=== PATIENT | male | born 1945 | race Caucasian/White ===

== ENCOUNTER → 2018-01-14 14:27 | Outpatient (CLI) | payer MEDICARE, MEDICAID, SELFPAY | PROVIDERS: Family Provider Internal Medicine; PCP Internal Medicine; Visit Provider Nurse Practitioner Adult Health | DX: R97.20 Elevated prostate specific antigen [PSA] (principal) | CPT/HCPCS: 36415; 84153 ==

== ENCOUNTER → 2018-02-09 14:40 | Outpatient (CLI) | payer MEDICARE, MEDICAID, SELFPAY ==
--- NOTE | 2018-02-09 15:11 | EKG12_ITS ---
Test Reason : PREOP Blood Pressure : / mmHG Vent. Rate : 071 BPM Atrial Rate : 071 BPM P-R Int : 122 ms QRS Dur : 098 ms QT Int : 392 ms P-R-T Axes : 044 070 074 degrees QTc Int : 425 ms Normal sinus rhythm Normal ECG No previous ECGs available Confirmed by MISHA CUELLAR ([id number]), department editor SHREYAS ESPINOSA ([id number]) on 02/10/2018 9:59:09 AM Referred By: Joel Wei Confirmed By:MISHA CUELLAR
[2018-02-09 16:11] LABS: Hemoglobin 13.1 g/dl (13.0-16.5); Mean Corp Hgb Conc 33.6 g/gl (32-36); Mean Corpuscular Volume 92.4 fL (80-94); Mean Platelet Vol. 12.1 fl (6.2-12.0); Platelet Count 166 K/mm3 (150-450); RBC Distribution Width CV 12.8 % (11.6-14.6); RBC Distribution Width SD 42.3 fl (35.1-43.9); Red Blood Count 4.22 M/mm3 (4.6-6.2); White Blood Count 5.4 K/mm3 (4.4-11.0)
[2018-02-09 16:15] LABS: Scan Indicated on CBC? Y/N NO
[2018-02-09 16:40] LABS: Anion Gap 6 (5-15); BUN 13 mg/dL (7-18); BUN/Creat Ratio 13.5 RATIO (10-20); Calcium,Total 8.9 mg/dL (8.5-10.1); Chloride 104 mmol/L (98-107); Creatinine, Serum 0.96 mg/dL (0.70-1.30); EST Glomerular Filtration Rate 81 mL/min (>60); Est Glom Filt Rate - Afr Amer 98 mL/min (>60); Glucose 135 mg/dL (74-106); Potassium 4.3 mmol/L (3.5-5.1); Sodium Level 141 mmol/L (136-145)
== END ==
LOC: LAB 14:44
PROVIDERS: Family Provider Internal Medicine; PCP Internal Medicine; Referring Provider Urology; Visit Provider Urology
DX: E11.9 Type 2 diabetes mellitus without complications (principal)
CPT/HCPCS: 36415; 80048; 85027; 93005

== ENCOUNTER → 2018-02-12 17:12 | Outpatient (CLI) | payer MEDICARE, MEDICAID, SELFPAY ==
--- NOTE | 2018-02-12 10:59 | PROSBIL_PTH ---
PATIENT: AMENA HUBBARD LOC: [facility] U#:[id number] AGE/SX: 79/M ROOM: RE02/12/[address]: Dr. Barry Turner MD : 1945 BED: DIS: SPEC #: [id number] RECD: 02/12/18 15:42 STATUS: JAUN PAYAM #: [id number] ERAN: 02/12/18 10:[address]: Barry Turner DEPT: SURGICAL PATHOLOGY RECD BY: Linda Flowers ENTERED: 02/15/18 11:49 SP TYPE: PROST BX PARUL DR: Dr. Nikolas Riley MD [facility] Tissues: A - PROSTATE RIGHT B - PROSTATE RIGHT C - PROSTATE RIGHT D - PROSTATE LEFT E - PROSTATE LEFT F - PROSTATE LEFT Procedures: PROSTATE BX HEADER OPERATION: PRE-OP DIAGNOSIS: TISSUE SUBMITTED: A - Right apex, B - Right mid, C - Right base, D - Left apex, E - Left mid, F - Left base MICROSCOPIC DIAGNOSIS A. Right prostate, apex, core biopsy: Prostatic adenocarcinoma: Alfred grade: 5+4=9 Number of cores involved: 1 out of 1 Proportion of tissue involved: >95% Perineural invasion: Present, frequent. Greatest tumor length: 0.8 cm B. Right prostate, mid, core biopsy: Prostatic adenocarcinoma: Alfred grade: 5+5=10 Number of cores involved: 2 out of 2 Proportion of tissue involved: 80% Perineural invasion: Present. Greatest tumor length: 1.2 cm Focal high-grade prostatic intraepithelial neoplasia (HGPIN). C. Right prostate, base, core biopsy: Prostatic adenocarcinoma: Alfred grade: 3+5=8 Number of cores involved: 3 out of 3 Proportion of tissue involved: ~30% Perineural invasion: Present. Greatest tumor length: 0.9 cm, discontinuous. D. Left prostate, apex, core biopsy: Prostatic adenocarcinoma: Alfred grade: 5+4=9 Number of cores involved: 2 out of 2 Proportion of tissue involved: 75% Perineural invasion: Present. Greatest tumor length: 1.4 cm Focal high-grade prostatic intraepithelial neoplasia (HGPIN). E. Left prostate, mid, core biopsy: Prostatic adenocarcinoma: Keller grade: 4+4=9 Number of cores involved: 2 out of 2 Proportion of tissue involved: >95% Perineural invasion: Not identified. Greatest tumor length: 1.4 cm Focal high-grade prostatic intraepithelial neoplasia (HGPIN). F. Left prostate, base, core biopsy: Prostatic adenocarcinoma: Keller grade: 5+3=8 Number of cores involved: 2 out of 2 Proportion of tissue involved: ~75% Perineural invasion: Present. Greatest tumor length: 1.5 cm, discontinuous. Focal high-grade prostatic intraepithelial neoplasia (HGPIN). SJ:tessie 02/16/18 COMMENT Case has been reviewed in consultation with Dr. Leroy who concurs with the above diagnosis. IDC:AM MICROSCOPIC DESCRIPTION Slides are reviewed. GROSS DESCRIPTION A - Received is one container designated prostate, right apex. The specimen consists of one elongated fragment of light ventura-white soft tissue measuring 0.9 cm in length and 0.1 cm in diameter. The specimen is totally submitted in one cassette. B - Received is one container designated prostate, right mid. The specimen consists of two elongated fragments of light ventura-white soft tissue measuring 1 and 1.5 cm in length and 0.1 cm in diameter. The specimen is totally submitted in one cassette. C - Received is one container designated prostate, right base. The specimen consists of three elongated fragments of light ventura-white soft tissue measuring 0.5 to 1 cm in length and 0.1 cm in diameter. The specimen is totally submitted in one cassette. D - Received is one container designated prostate, left apex. The specimen consists of two elongated fragments of light ventura-white soft tissue each measuring 1.6 cm in length and 0.1 cm in diameter. The specimen is totally submitted in one cassette. E - Received is one container designated prostate, left mid. The specimen consists of two elongated fragments of light ventura-white soft tissue each measuring 1.5 cm in length and 0.1 cm in diameter. The specimen is totally submitted in one cassette. F - Received is one container designated prostate, left base. The specimen consists of two elongated fragments of light ventura-white soft tissue each measuring 1.5 cm in length and 0.1 cm in diameter. The specimen is totally submitted in one cassette. / SJ:tessie 02/15/18 TC:0 CPT: G0146
== END ==
LOC: LABSPEC 17:14
PROVIDERS: Family Provider Internal Medicine; PCP Internal Medicine; Referring Provider Urology; Visit Provider Urology
DX: C61 Malignant neoplasm of prostate (principal)
CPT/HCPCS: 88305; G0416

== ENCOUNTER → 2018-02-19 08:41 | Outpatient (CLI) | payer MEDICARE, MEDICAID, SELFPAY ==
--- NOTE | 2018-02-19 08:48 | NM_ITS ---
CLINICAL: 72-year-old male with reported history of carcinoma of the prostate. WHOLE BODY 99m Tc MDP RADIONUCLIDE BONE SCINTIGRAPHY COMPARISON: None available FINDINGS: Following the intravenous administration of 25.8 mCi of 99m Tc MDP, whole body bone images reveal: 1. Increased radiopharmaceutical concentration is defined in the lateral cortical compartment of the distal left femoral diaphysis and distal right clavicle. 2. Enhanced tracer concentration is defined in the sternoclavicular compartment of the right shoulder, fifth-ninth thoracic vertebra heterogeneously, the left knee articulation, right forefoot. 3. The remaining skeletal structures are scintigraphically unremarkable with normal-appearing renal images and urinary bladder activity identified. NM/Bone Scan Whole Body IMPRESSION: 1. The increase in radiopharmaceutical concentration defined in the distal left femoral diaphysis and distal right clavicle may be further investigated with plain film radiography in the setting of known prostate carcinoma. 2. 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 Electronically Signed: Maxwell Price DO at 8:14 EDT Tel , Service support ,
== END ==
PROVIDERS: Family Provider Internal Medicine; PCP Internal Medicine; Referring Provider Urology; Visit Provider Urology
DX: C61 Malignant neoplasm of prostate (principal)
CPT/HCPCS: 78306

== ENCOUNTER → 2018-02-25 14:14 | Outpatient (CLI) | payer MEDICARE, MEDICAID, SELFPAY ==
--- NOTE | 2018-02-25 14:17 | CT_ITS ---
STUDY: CT ABDOMEN AND PELVIS WITH CONTRAST REASON FOR EXAM: Male, 72 years old. Prostate cancer RADIATION DOSAGE (If Supplied By Facility): CTDIvol = ( 12.97 ) mGy, DLP = ( 720.44 ) mGycm TECHNIQUE: Transaxial images were obtained from the dome of the diaphragm to the symphysis pubis without oral contrast. 100 ml of Isovue 300 contrast was administered. Sagittal and coronal images were reconstructed. Individualized dose optimization techniques were used for this CT. COMPARISON: None. FINDINGS: The visualized lung bases are clear. The visualized portions of the heart and pericardium are within normal limits. There are no calcified gallstones present. The liver is within normal limits. There are no suspicious hepatic lesions. The spleen is normal in size. There are calcified granulomata noted in the spleen. The pancreas is within normal limits. The adrenal glands are within normal limits. There are no renal or ureteral stones. There is no hydronephrosis. There are no focal renal lesions. Normal visualized stomach. There is no bowel obstruction or inflammation. The appendix is visualized and appears normal. There is a fat-containing left inguinal hernia. There is no bowel containing hernia. The aorta is normal in caliber. There is no abdominal or pelvic free air, free fluid, fluid collection or lymphadenopathy. The prostate is enlarged, measuring 5.3 x 5.0 cm. There are no destructive osseous lesions. CT/Abdomen/Pelvis WITH Contrast IMPRESSION: Enlarged prostate. No evidence of metastatic disease in the abdomen or pelvis. No acute abdominal or pelvic pathology. Electronically Signed: Harpreet Mccoy, at 20:55 EDT Tel , Service support ,
== END ==
PROVIDERS: Family Provider Internal Medicine; PCP Internal Medicine; Referring Provider Urology; Visit Provider Urology
DX: C61 Malignant neoplasm of prostate (principal)
CPT/HCPCS: 74177; Q9967

== ENCOUNTER → 2018-03-12 15:23 | Outpatient (CLI) | payer MEDICARE, MEDICAID, SELFPAY ==
--- NOTE | 2018-03-12 16:00 | MRI_ITS ---
STUDY: MR PELVIS WITH T WITHOUT CONTRAST REASON FOR EXAM: Male, 72 years old. Newly diagnosed prostate cancer. TECHNIQUE: Standardized fat and water weighted pulse sequences were obtained in all 3 orthogonal planes, pre-and post contrast administration. 7 ml of Gadavist contrast material was administered intravenously for the contrast portion of the examination. COMPARISON: CT of the abdomen and pelvis, February 25, 2018. FINDINGS: The prostate measures 4.09 x 3.57 x 4.49 cm and a volume of 32.5 mL. The central gland is heterogenous in signal on both T1-weighted and T2-weighted imaging. There are small central calcifications. There is heterogenous enhancement on the post gadolinium imaging with focal areas of nonenhancement anteriorly. The peripheral zone is of normal thickness. It is uniformly low signal on T2 weighted imaging except for focal areas in the right lateral lobe and bilaterally at the most caudal portion of the gland. There is no focal area of abnormality of the peripheral zone on diffusion-weighted imaging and ADC mapping There is overall uniform enhancement contrast enhancement throughout the peripheral zone postgadolinium imaging. The seminal vesicles are prominent but are otherwise unremarkable. The bladder demonstrates a markedly trabeculated wall. There is slight indentation of the prostate into the floor of the bladder. There is no focal mass or filling defect. Normal visualized small intestine. Normal visualized colon. There is no pelvic fluid. There is no pelvic mass lesion or lymphadenopathy. Normal visualized pelvic arteries. Normal osseous structures. Normal abdominal wall. MRI/Pelvis W/WO Contrast IMPRESSION: 1. Enlarged prostate.. 2. There is heterogeneity of the central gland and the possibility of internal malignancy cannot be completely ruled out. 3. Overall decreased signal within the majority of the peripheral zone particularly on the left. There is no corresponding defect on the ADC mapping or diffusion weighting images and no marked abnormality and contrast enhancement. These findings were critical for malignancy. Electronically Signed: Mono Meyer DO at 16:37 EST Tel [phone], Service support ,
== END ==
PROVIDERS: Family Provider Internal Medicine; PCP Internal Medicine; Referring Provider Radiology Radiation Oncology; Visit Provider Radiology Radiation Oncology
DX: C61 Malignant neoplasm of prostate (principal)
CPT/HCPCS: 72197; A9585

== ENCOUNTER 2018-04-07 08:00 | Day surgery (SDC) | payer MEDICARE, MEDICAID, SELFPAY ==
[2018-04-07 08:27] VITALS: BP 142/57; PULSE 71; RESP 16; TEMP 36.9; O2SAT 96; BMI 22.3
[2018-04-07] MEDS: Cefazolin 2 GM in 0.9% Normal Saline 100 ML IV (09:59)
--- NOTE | 2018-04-07 10:02 | DCINST_ITS ---
Discharge Diet: Light diet - advance as tolerated Discharge Activity: Return to Normal Activity Allergies/Adverse Reactions: Allergies No Known Allergies Allergy (Verified 03/31/18 13:39) Medications to take at Discharge Amlodipine [Norvasc] 5 mg PO DAILY 03/15/16 Aspirin E.C. [Ecotrin] 162.5 mg PO DAILY@0800 03/15/16 Atorvastatin Calcium [Lipitor] 10 mg PO QHS 03/15/16 Famotidine [Pepcid AC] 20 mg PO DAILY 03/15/16 Fluticasone 0.05% [Flonase Nasal [place]] 1 spray NASAL PRN PRN 03/15/16 Lisinopril [Zestril] 20 mg PO DAILY 03/15/16 Tamsulosin HCl [Flomax] 0.8 mg PO DAILY 03/15/16 Naproxen Sodium [Aleve] 220 mg PO Q12H PRN PRN 03/31/18 Sertraline HCl [Zoloft] 50 mg PO DAILY 03/31/18 Primary Care Physician: Nikolas Riley [Primary Care Provider] - Test Results: Test results from this visit will be discussed in further detail at your follow- up appointment, if applicable. Please Follow Up With: Barry Turner MD When: keep appt for next injection in the office
--- NOTE | 2018-04-07 10:32 | PCM.OPRPT ---
Report of Operation Date of Procedure: 04/07/18 Pre-Operative Diagnosis: Prostate cancer Post-Operative Diagnosis: Same Surgery/Procedure Performed:: Transperineal ultrasound guided placement of fiducial markers for radiation therapy, and transperineal ultrasound-guided placement of a spacer O AR gel. Description of Surgical Findings:: 72-year-old male taken back to the operating room he has a history of prostate cancer we were going to undergo placement of fiducial markers for radiation treatment and also a gel spacer to protect the rectum from radiation. Patient was taken back to the operating room after smooth induction of anesthesia he was placed supine on the table and then in dorsal lithotomy position I introduced a ultrasound probe into the rectum performed ultrasonography of the prostate with biplanar and sagittal view identified the prostate the landmarks of the prostate base mid and apex of the prostate seminal vesicles the bladder I then advanced the first marker needle in the right side of the prostate places in the right mid part of the prostate and then after dropping off the needle into the right spot I dropped the stripe marker on the right side then placed another marker in the left base and another good marker in the left apex once is accomplished then a found the midline of the prostate we created a space in the denoveillas fascia between the rectum and the prostate was identified and then I advanced the needle into that space with the bevel up once and that he was in good position we did a test injection with saline and there was a good puff of saline solution that had accumulated in the do not be space once this was done then we and I prepared the gel matrix this was injected very slowly between the rectum and the prostate once the matrix was injected then removed the needle ultrasound of the prostate could then remove the ultrasound probe palpated could feel that the gel palpable on exam and then removed the probe and there was no bleeding from the rectum and patient anesthetic was reversed is taken back to PACU good condition plan to see him back in the next injection of hormone therapy. Type of Anesthesia:: General - Admit VTE Documentation VTE Present on Admission: No VTE Mechan Device Prophylaxis: SCD's
--- NOTE | 2018-04-07 10:36 | OP.PCM_ITS ---
Report of Operation Date of Procedure: 04/07/18 Pre-Operative Diagnosis: Prostate cancer Post-Operative Diagnosis: Same Surgery/Procedure Performed:: Transperineal ultrasound guided placement of fiducial markers for radiation therapy, and transperineal ultrasound-guided p lacement of a spacer O AR gel. Description of Surgical Findings:: 72-year-old male taken back to the operating room he has a history of prostate cancer we were going to undergo placement of fiducial markers for radiation treatment and also a gel spacer to protect the rectum from radiation. Patient was taken back to the operating room after smooth induction of anesthesia he was placed supine on the table and then in dorsal lithotomy position I introduced a ultrasound probe into the rectum performed ultrasonography of the prostate with biplanar and sagittal view identified the prostate the landmarks of the prostate base mid and apex of the prostate seminal vesicles the bladder I then advanced the first marker needle in the right side of the prostate places in the right mid part of the prostate and then after dropping off the needle into the right spot I dropped the eyelet row marker on the right side then placed another marker in the left base and another good marker in the left apex once is accomplished then a found the midline of the prostate we created a space in the denoveillas fascia between the rectum and the prostate was identified and then I advanced the needle into that space with the bevel up once and that he was in good position we did a test injection with saline and there was a good puff of saline solution that had accumulated in the do not be space once this was done then we and I prepared the gel matrix this was injected very slowly between the rectum and the prostate once the matrix was injected then removed the needle ultrasound of the prostate could then remove the ultrasound probe palpated could feel that the gel palpable on exam and then removed the probe and there was no bleeding from the rectum and patient anesthetic was reversed is taken back to PACU good condition plan to see him back in the next injection of hormone therapy. Type of Anesthesia:: General - Admit VTE Documentation VTE Present on Admission: No VTE Mechan Device Prophylaxis: SCD's
[2018-04-07 10:41] VITALS: BP 114/52; BP 142/57; PULSE 64; RESP 16; TEMP 36.4; O2SAT 97
[2018-04-07 10:45] VITALS: BP 111/42; BP 142/57; PULSE 62; RESP 16; O2SAT 97
[2018-04-07 10:50] VITALS: BP 111/64; BP 142/57; PULSE 63; RESP 16; TEMP 36.6; O2SAT 96
[2018-04-07 11:23] VITALS: BP 142/57
--- OUTSIDE RECORDS SUMMARY | 2018-06-02 13:08 | XMS RPT_ITS ---
:1945 Author Organization OH[employer] Support Name Relationship Address Phone LOIS HUBBARD Unavailable [address] + [address] [place] [address] R Unavailable Unavailable Unavailable BAYS, LOIS Unavailable [address] + [address] [place] [address] R Unavailable Unavailable Unavailable BAYS, LOIS Unavailable [address] + [address] [place] [address] R Unavailable Unavailable Unavailable BAYS, LOIS Unavailable [address] + [place] [address] R Unavailable Unavailable Unavailable BAYS, LOIS Unavailable [address] + [place] [address] R Unavailable Unavailable Unavailable BAYS, LOIS Unavailable [address] + [place] [address] R Unavailable Unavailable Unavailable BAYS, LOIS Unavailable [address] + [place] [address] S Unavailable Unavailable Unavailable BAYS, LOIS Unavailable [address] + [place] [address] S Unavailable Unavailable Unavailable BAYS, LOIS Unavailable [address] + [place] [address] R Unavailable Unavailable Unavailable BAYS, LOIS Unavailable [address] + [place] [address] S Unavailable Unavailable Unavailable BAYS, LOIS Unavailable Unavailable + Care Team Providers Name Role Phone Mike Loyd Attending Unavailable Mike Loyd Referring Unavailable Sulove, Saksham Primary Care Unavailable Nidhi Schneider Attending Unavailable Nidhi Schneider Referring Unavailable Sulove, Saksham Primary Care Unavailable Joel Wei Attending Unavailable Joel Wei Referring Unavailable Sulove, Saksham Primary Care Unavailable Johnny, Barry Hagen Attending Unavailable Johnny, Barry Hagen Referring Unavailable Sulove, Saksham Primary Care Unavailable Johnny, Barry Hagen Attending Unavailable Johnny, Barry Hagen Referring Unavailable Sulove, Saksham Primary Care Unavailable Johnny, Barry Hagen Attending Unavailable Johnny, Blu Referring Unavailable Sulove, Saksham Primary Care Unavailable Mike Loyd Attending Unavailable Mike Loyd Referring Unavailable Sulove, Saksham Primary Care Unavailable Ha Cuellar Attending Unavailable Joel Wei Referring Unavailable Johnny, Barry Hagen Attending Unavailable Johnny, Barry Hagen Referring Unavailable Sulove, Saksham Primary Care Unavailable Mike Loyd Attending Unavailable Mike Loyd Referring Unavailable Sulove, Saksham Primary Care Unavailable Sulove, Saksham Attending Unavailable Sulove, Saksham Primary Care Unavailable Sulove, Saksham Attending Unavailable Sulove, Saksham Primary Care Unavailable Sulove, Saksham Admitting Unavailable Sulove, Saksham Attending Unavailable Sulove, Saksham Primary Care Unavailable Sulove, Saksham Attending Unavailable Sulove, Saksham Primary Care Unavailable Mike Donovan Admitting Unavailable Mike Donovan Attending Unavailable Sulove, Saksham Primary Care Unavailable Sulove, Saksham Attending Unavailable Sulove, Saksham Primary Care Unavailable Sulove, Saksham Admitting Unavailable Sulove, Saksham Attending Unavailable Sulove, Saksham Primary Care Unavailable Sulove, Saksham Attending Unavailable Sulove, Saksham Primary Care Unavailable Sulove, Saksham Admitting Unavailable Sulove, Saksham Attending Unavailable Sulove, Saksham Primary Care Unavailable Sulove, Saksham Attending Unavailable Sulove, Saksham Primary Care Unavailable Sulove, Saksham Attending Unavailable Sulove, Saksham Primary Care Unavailable Sulove, Saksham Admitting Unavailable Sulove, Saksham Attending Unavailable Sulove, Saksham Primary Care Unavailable Brian Alanis Attending Unavailable Sulove, Saksham Primary Care Unavailable Sulove, Saksham Attending Unavailable Sulove, Saksham Primary Care Unavailable Sulove, Saksham Admitting Unavailable DAVE BAIG Attending Unavailable Sulove, Saksham Primary Care Unavailable Sulove, Sakshlos Primary Care Unavailable PROBLEMS PROBLEMS DATE TYPE CONDITION / CODE ATTENDING STATUS SOURCE 03/22/2018 Unknown C61 - Malignant Mike Loyd Active [facility] / C61(ICD-10) Hospital Repository 03/11/2018 Unknown Z01.810 - Encounter Ha Cuellar Active [facility] for prepro[facility]ural [facility] examination / Repository Z01.810(ICD-10) PROCEDURES PROCEDURES No Procedure Records FoundRESULTS RESULTS CT PELVIS W/O Observed: 04/26/2018 Status: F Source: JORGE CONT/THERAPY 12:28 PM [facility] REPOSITORY [facility] Imaging Services [address] [place] [address] CT Pelvis w/o Cont/Therapy MR#: [id number] Acct: [id number] Name: AMENA HUBBARD Rep #: [id number] : 1945 M 72 From: Mihai Mott MD PCP: Nikolas Riley Status: REG CLI Study: CT Pelvis w/o Cont/Therapy Date of Exam: 04/26/18 Exam# [id number] Ordering Dr: Mike Loyd MD STUDY: CT PELVIS WITHOUT CONTRAST REASON FOR EXAM: Male, 72 years old. This is a prostate cancer radiation treatment planning examination. RADIATION DOSAGE (If Supplied By Facility): CTDIvol = ( 24.06 ) mGy, DLP = ( 770.92 ) mGycm TECHNIQUE: Transaxial imaging of the pelvis was performed with oral contrast, and without intravenous administration of contrast material. Individualized dose optimization techniques were used for this CT. COMPARISON: Comparison is made with prior study dated April 20, 2018. FINDINGS: Normal urinary bladder. Stable prostatic enlargement. This causes indentation of the bladder base. Prostatic calcifications. Once again, metallic densities are seen within the prostate. Stable appearance of the pleural density seen between the bladder and rectum. This may represent a small amount of free fluid. Normal visualized small intestine. Normal visualized colon. There is no pelvic fluid. There is no pelvic mass lesion or lymphadenopathy. Normal visualized pelvic arteries. There is a left inguinal hernia containing fat. There are diffuse degenerative changes of the visualized lumbar spine. CT/CT Pelvis w/o Cont/Therapy IMPRESSION: Stable examination. Electronically Signed: Mihai Mott MD at 10:48 EST Tel [phone], Service support , CC: Nikolas Riley; Mike Loyd MD Dermatology Physician Assistant: Signed CT PELVIS W/CONT Observed: 04/20/2018 Status: F Source: JORGE THERAPY 11:23 AM [facility] REPOSITORY [facility] Imaging Services [address] [place] [address] CT Pelvis W/CONT Therapy MR#: [id number] Acct: [id number] Name: AMENA HUBBARD Rep #: [id number] : 1945 M 72 From: Mono Meyer DO PCP: Nikolas Riley Status: REG CLI Study: CT Pelvis W/CONT Therapy Date of Exam: 04/20/18 Exam# [id number] Ordering Dr: Mike Loyd MD STUDY: CT PELVIS WITH CONTRAST REASON FOR EXAM: Male, 72 years old. Prostate cancer. RADIATION DOSAGE (If Supplied By Facility): CTDIvol = ( 24.62 ) mGy, DLP = ( 1417.52 ) mGycm TECHNIQUE: Transaxial imaging of the pelvis was performed with oral contrast. 100 ml of Isovue 300 contrast was administered intravenously. Individualized dose optimization techniques were used for this CT. COMPARISON: MRI of the pelvis, March 12, 2018. CT of the abdomen abdomen and pelvis, February 25, 2018. FINDINGS: Normal urinary bladder. The prostate is markedly enlarged and invaginates into the bladder floor. There are small metallic foreign bodies the prostate on the current study as well as central calcifications. There is prominence of the seminal vesicles. There is fluid density between the prostate and anterior rectal wall, not seen on the prior studies Normal visualized small intestine. Normal visualized colon. There is no pelvic fluid. There is no pelvic lymphadenopathy or mass lesion. Normal visualized pelvic arteries. There is a left inguinal hernia of omental fat. There abdominal wall is otherwise unremarkable. There is a implant within the penis. Normal osseous structures. CT/CT Pelvis W/CONT Therapy IMPRESSION: 1. Enlarged prostate. This appears similar in size to prior study. There are metallic clips in both lateral aspects of the prostate. 2. New low-attenuation area between the posterior prostate and anterior rectal wall not seen on previous studies. Etiology for this fluid is uncertain. 3. No free fluid is seen within the pelvis Electronically Signed: Mono Meyer DO at 23:27 EST Tel [phone], Service support , CC: Nikolas Riley; Mike Loyd MD Dermatology Physician Assistant: Signed CBC W/DIFF, AUTOMATED Collected: 04/20/2018 Status: F Source: JORGE 9:17 AM [facility] REPOSITORY TYPE CODE TESTS RESULT OUT OF RANGE REFERENCE UNITS LAB L100.1000 4.4-11.0 K/mm3 Normal WBC 6.0 LAB L100.1200 4.6-6.2 M/mm3 Low RBC 4.52 LAB L100.1300 13.0-16.5 g/dl Normal HGB 14.2 LAB L100.1400 40-54 % Normal HCT 42.4 LAB L100.1500 80-94 fL Normal MCV 93.8 LAB L100.1600 27.0-32.0 pg Normal MCH 31.4 LAB L100.1700 32-36 g/gl Normal MCHC 33.5 LAB L100.1810 11.6-14.6 % Normal RDW CV 12.4 LAB L100.1820 35.1-43.9 fl Normal RDW SD 41.9 LAB L100.1900 150-450 K/mm3 Normal PLT 169 LAB L100.2000 6.2-12.0 fl Normal MPV 11.2 LAB L100.2100 47-70 % High NEUT% 74.7 LAB L100.2200 19-41 % Low LY% 14.6 LAB L100.2300 0-10 % Normal MONO% 8.5 LAB L100.2400 0-5 % Normal EO% 1.8 LAB L100.2500 0-1 % Normal BASO% 0.2 LAB L100.2550 0.0-0.9 % Normal IM GRAN % 0.200 Result Comment: IG% - Immature Granulocytes (promyelocytes, myelocytes and metamyelocytes) > 1% indicates that a LEFT SHIFT is Present. LAB L100.2620 2.0-7.7 X10 3/uL Normal Absolute Neut 4.5 LAB L100.2720 0.83-4.51 X10 3/ul Normal Absolute Lymph 0.87 Performed By: #### L100.0100 #### [facility] [address] [place], [place], [address] SERUM CREATININE AND Collected: 04/20/2018 Status: F Source: DEC[place] GFR 9:17 AM [facility] REPOSITORY TYPE CODE TESTS RESULT OUT OF RANGE REFERENCE UNITS LAB L501.1100 0.70-1.30 mg/dL Normal 0.89 CREAT,SERUM Result Comment: The validity of the calculated GFR AND GFRAA in patients over 70 years has not been determined. Clinical correlation is essential. LAB L501.1110 >60 mL/min Normal EST GFR 89 Result Comment: Non- GFR Calc LAB L501.1115 >60 mL/min Normal EST GFR - AA 107 Result Comment: GFR Calc Performed By: #### L501.1105, L501.9940 #### [facility] [address] [place], [place], [address] PSA,TOTAL- DIAGNOSTIC Collected: 04/20/2018 Status: F Source: DECATUR 9:17 AM [facility] REPOSITORY TYPE CODE TESTS RESULT OUT OF REFERENCE UNITS RANGE LAB L501.9940 0.0-4.0 ng/mL PSA, High DIAGNOSTIC 15.60 Result Comment: This test was performed using the TPSA assay method for the [employer] chemistry system. Values obtained with different assay methods cannot be used interchangably. When changing PSA assays in the course of monitoring a patient, additional sequential testing should be carried out to confirm baseline values. Performed By: #### L501.1105, L501.9940 #### [facility] [address] [place], [address] OPERATIVE REPORT Observed: 04/07/2018 Status: F Source: JORGE 10:36 AM [facility] REPOSITORY [facility] Medical Records Department [address] [place] [address] Operative Report 04/07/18 1032 MR#: [id number] Acct: [id number] Name: AMENA HUBBARD Rep #: [id number] : 1945 72 From: Barry Turner MD PCP: Nikolas Riley Status: REG [facility] Y Location: [place] [address] Report of Operation Date of Procedure: 04/07/18 Pre-Operative Diagnosis: Prostate cancer Post-Operative Diagnosis: Same Surgery/Procedure Performed:: Transperineal ultrasound guided placement of fiducial markers for radiation therapy, and transperineal ultrasound-guided placement of a spacer O AR gel. Description of Surgical Findings:: 72-year-old male taken back to the operating room he has a history of prostate cancer we were going to undergo placement of fiducial markers for radiation treatment and also a gel spacer to protect the rectum from radiation. Patient was taken back to the operating room after smooth induction of anesthesia he was placed supine on the table and then in dorsal lithotomy position I introduced a ultrasound probe into the rectum performed ultrasonography of the prostate with biplanar and sagittal view identified the prostate the landmarks of the prostate base mid and apex of the prostate seminal vesicles the bladder I then advanced the first marker needle in the right side of the prostate places in the right mid part of the prostate and then after dropping off the needle into the right spot I dropped the biodiesel product development manager on the right side then placed another marker in the left base and another good marker in the left apex once is accomplished then a found the midline of the prostate we created a space in the denoveillas fascia between the rectum and the prostate was identified and then I advanced the needle into that space with the bevel up once and that he was in good position we did a test injection with saline and there was a good puff of saline solution that had accumulated in the do not be space once this was done then we and I prepared the gel matrix this was injected very slowly between the rectum and the prostate once the matrix was injected then removed the needle ultrasound of the prostate could then remove the ultrasound probe palpated could feel that the gel palpable on exam and then removed the probe and there was no bleeding from the rectum and patient anesthetic was reversed is taken back to PACU good condition plan to see him back in the next injection of hormone therapy. Type of Anesthesia:: General - Admit VTE Documentation VTE Present on Admission: No VTE Mechan Device Prophylaxis: SCD's 04/07/18 1036 <Electronically signed by Barry Turner MD> Date Barry Turner MD CC: Nikolas Riley; Barry Turner MD Signed DISCHARGE INSTRUCTION Observed: 04/07/2018 Status: F Source: DECATUR 10:02 AM [facility] REPOSITORY [facility] Medical Records Department [address] [facility] [place] [address] Instructions for Home/Discharge Instructions 04/07/18 1001 MR#: [id number] Acct: [id number] Name: AMENA HUBBARD Rep #: [id number] : 1945 72 From: Barry Turner MD PCP: Nikolas Riley Status: REG [facility] Discharge Diet: Light diet - advance as tolerated Discharge Activity: Return to Normal Activity Allergies/Adverse Reactions: Allergies No Known Allergies Allergy (Verified 03/31/18 13:39) Medications to take at Discharge Amlodipine [Norvasc] 5 mg PO DAILY 03/15/16 Aspirin E.C. [Ecotrin] 162.5 mg PO DAILY@0800 03/15/16 Atorvastatin Calcium [Lipitor] 10 mg PO QHS 03/15/16 Famotidine [Pepcid AC] 20 mg PO DAILY 03/15/16 Fluticasone 0.05% [Flonase Nasal [place]] 1 spray NASAL PRN PRN 03/15/16 Lisinopril [Zestril] 20 mg PO DAILY 03/15/16 Tamsulosin HCl [Flomax] 0.8 mg PO DAILY 03/15/16 Naproxen Sodium [Aleve] 220 mg PO Q12H PRN PRN 03/31/18 Sertraline HCl [Zoloft] 50 mg PO DAILY 03/31/18 Primary Care Physician: Nikolas Riley [Primary Care Provider] - Test Results: Test results from this visit will be discussed in further detail at your follow-up appointment, if applicable. Please Follow Up With: Barry Turner MD When: keep appt for next injection in the office 04/07/18 1002 <Electronically signed by Barry Turner MD> Date Barry Turner MD CC: Nikolas Riley PELVIS W/WO CONTRAST Observed: 03/12/2018 Status: F Source: DECATUR 3:30 PM [facility] REPOSITORY [facility] Imaging Services [address] [place] [address] Pelvis W/WO Contrast MR#: [id number] Acct: [id number] Name: AMENA HUBBARD Rep #: [id number] : 1945 M 72 From: Mono Meyer DO PCP: Nikolas Riley Status: REG CLI Study: Pelvis W/WO Contrast Date of Exam: 03/12/18 Exam# [id number] Ordering Dr: Mike Loyd MD STUDY: MR PELVIS WITH T WITHOUT CONTRAST REASON FOR EXAM: Male, 72 years old. Newly diagnosed prostate cancer. TECHNIQUE: Standardized fat and water weighted pulse sequences were obtained in all 3 orthogonal planes, pre-and post contrast administration. 7 ml of Gadavist contrast material was administered intravenously for the contrast portion of the examination. COMPARISON: CT of the abdomen and pelvis, February 25, 2018. FINDINGS: The prostate measures 4.09 x 3.57 x 4.49 cm and a volume of 32.5 mL. The central gland is heterogenous in signal on both T1-weighted and T2-weighted imaging. There are small central calcifications. There is heterogenous enhancement on the post gadolinium imaging with focal areas of nonenhancement anteriorly. The peripheral zone is of normal thickness. It is uniformly low signal on T2 weighted imaging except for focal areas in the right lateral lobe and bilaterally at the most caudal portion of the gland. There is no focal area of abnormality of the peripheral zone on diffusion-weighted imaging and ADC mapping There is overall uniform enhancement contrast enhancement throughout the peripheral zone postgadolinium imaging. The seminal vesicles are prominent but are otherwise unremarkable. The bladder demonstrates a markedly trabeculated wall. There is slight indentation of the prostate into the floor of the bladder. There is no focal mass or filling defect. Normal visualized small intestine. Normal visualized colon. There is no pelvic fluid. There is no pelvic mass lesion or lymphadenopathy. Normal visualized pelvic arteries. Normal osseous structures. Normal abdominal wall. MRI/Pelvis W/WO Contrast IMPRESSION: 1. Enlarged prostate.. 2. There is heterogeneity of the central gland and the possibility of internal malignancy cannot be completely ruled out. 3. Overall decreased signal within the majority of the peripheral zone particularly on the left. There is no corresponding defect on the ADC mapping or diffusion weighting images and no marked abnormality and contrast enhancement. These findings were critical for malignancy. Electronically Signed: Mono Meyer DO at 16:37 EST Tel [phone], Service support , CC: Nikolas Riley; Mike Loyd MD Dermatology Physician Assistant: Signed ABDOMEN/PELVIS WITH Observed: 02/25/2018 Status: F Source: [facility] CONTRAST 2:17 PM [facility] REPOSITORY [facility] Imaging Services [address] [place] [address] Abdomen/Pelvis WITH Contrast MR#: [id number] Acct: [id number] Name: AMENA HUBBARD Rep #: [id number] : 1945 M 72 From: Harpreet Mccoy MD PCP: Nikolas Riley Status: REG CLI Study: Abdomen/Pelvis WITH Contrast Date of Exam: 02/25/18 Exam# [id number] Ordering Dr: Barry Turner MD STUDY: CT ABDOMEN AND PELVIS WITH CONTRAST REASON FOR EXAM: Male, 72 years old. Prostate cancer RADIATION DOSAGE (If Supplied By Facility): CTDIvol = ( 12.97 ) mGy, DLP = ( 720.44 ) mGycm TECHNIQUE: Transaxial images were obtained from the dome of the diaphragm to the symphysis pubis without oral contrast. 100 ml of Isovue 300 contrast was administered. Sagittal and coronal images were reconstructed. Individualized dose optimization techniques were used for this CT. COMPARISON: None. FINDINGS: The visualized lung bases are clear. The visualized portions of the heart and pericardium are within normal limits. There are no calcified gallstones present. The liver is within normal limits. There are no suspicious hepatic lesions. The spleen is normal in size. There are calcified granulomata noted in the spleen. The pancreas is within normal limits. The adrenal glands are within normal limits. There are no renal or ureteral stones. There is no hydronephrosis. There are no focal renal lesions. Normal visualized stomach. There is no bowel obstruction or inflammation. The appendix is visualized and appears normal. There is a fat-containing left inguinal hernia. There is no bowel containing hernia. The aorta is normal in caliber. There is no abdominal or pelvic free air, free fluid, fluid collection or lymphadenopathy. The prostate is enlarged, measuring 5.3 x 5.0 cm. There are no destructive osseous lesions. CT/Abdomen/Pelvis WITH Contrast IMPRESSION: Enlarged prostate. No evidence of metastatic disease in the abdomen or pelvis. No acute abdominal or pelvic pathology. Electronically Signed: Harpreet Mccoy, at 20:55 EDT Tel , Service support , CC: Nikolas Riley; Barry Turner MD Dermatology Physician Assistant: Signed BONE SCAN WHOLE Observed: 02/19/2018 Status: F Source: [place] BODY 8:49 AM [facility] REPOSITORY [facility] Imaging Services [address] [place] [address] [place] [address] Bone Scan Whole Body MR#: [id number] Acct: [id number] Name: AMENA HUBBARD Rep #: [id number] : 1945 M 72 From: Maxwell Price DO PCP: Nikolas Riley Status: REG CLI Study: Bone Scan Whole Body Date of Exam: 02/19/18 Exam# [id number] Ordering Dr: Barry Turner MD CLINICAL: 72-year-old male with reported history of carcinoma of the prostate. WHOLE BODY 99m Tc MDP RADIONUCLIDE BONE SCINTIGRAPHY COMPARISON: None available FINDINGS: Following the intravenous administration of 25.8 mCi of 99m Tc MDP, whole body bone images reveal: 1. Increased radiopharmaceutical concentration is defined in the lateral cortical compartment of the distal left femoral diaphysis and distal right clavicle. 2. Enhanced tracer concentration is defined in the sternoclavicular compartment of the right shoulder, fifth-ninth thoracic vertebra heterogeneously, the left knee articulation, right forefoot. 3. The remaining skeletal structures are scintigraphically unremarkable with normal-appearing renal images and urinary bladder activity identified. NM/Bone Scan Whole Body IMPRESSION: 1. The increase in radiopharmaceutical concentration defined in the distal left femoral diaphysis and distal right clavicle may be further investigated with plain film radiography in the setting of known prostate carcinoma. 2. 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 Electronically Signed: Maxwell Price DO at 8:14 EDT Tel , Service support , CC: Nikolas Riley; Barry Turner MD Dermatology Physician Assistant: Signed PROSTATE BIOPSY Observed: 02/12/2018 Status: F Source: JORGE BILATERAL 10:59 AM [facility] REPOSITORY Patient: AMENA HUBBARD : 1945 (72/M) Acct Num: [id number] Phys: Johnny RAHMAN,Barry Hagen Unit Num: [id number] Loc: [facility] Specimen: [id number] Received: 02/12/18 - 1542 Spec Type: PROST BX TISSUES 1 TISSUES: A. PROSTATE RIGHT - RIGHT APEX B. PROSTATE RIGHT - RIGHT MID C. PROSTATE RIGHT - RIGHT BASE D. PROSTATE LEFT - LEFT APEX E. PROSTATE LEFT - LEFT MID F. PROSTATE LEFT - LEFT BASE COMMENT Case has been reviewed in consultation with Dr. Leroy who concurs with the above diagnosis. IDC:AM GROSS DESCRIPTION A - Received is one container designated prostate, right apex. The specimen consists of one elongated fragment of light ventura-white soft tissue measuring 0.9 cm in length and 0.1 cm in diameter. The specimen is totally submitted in one cassette. B - Received is one container designated prostate, right mid. The specimen consists of two elongated fragments of light ventura-white soft tissue measuring 1 and 1.5 cm in length and 0.1 cm in diameter. The specimen is totally submitted in one cassette. C - Received is one container designated prostate, right base. The specimen consists of three elongated fragments of light ventura-white soft tissue measuring 0.5 to 1 cm in length and 0.1 cm in diameter. The specimen is totally submitted in one cassette. D - Received is one container designated prostate, left apex. The specimen consists of two elongated fragments of light ventura-white soft tissue each measuring 1.6 cm in length and 0.1 cm in diameter. The specimen is totally submitted in one cassette. E - Received is one container designated prostate, left mid. The specimen consists of two elongated fragments of light ventura-white soft tissue each measuring 1.5 cm in length and 0.1 cm in diameter. The specimen is totally submitted in one cassette. F - Received is one container designated prostate, left base. The specimen consists of two elongated fragments of light ventura-white soft tissue each measuring 1.5 cm in length and 0.1 cm in diameter. The specimen is totally submitted in one cassette. / SJ:rg 02/15/18 TC:0 CPT: G0146 HEADER OPERATION: PRE-OP DIAGNOSIS: TISSUE SUBMITTED: A - Right apex, B - Right mid, C - Right base, D - Left apex, E - Left mid, F - Left base MICROSCOPIC DESCRIPTION Slides are reviewed. MICROSCOPIC DIAGNOSIS A. Right prostate, apex, core biopsy: Prostatic adenocarcinoma: Arcadia grade: 5+4=9 Number of cores involved: 1 out of 1 Proportion of tissue involved: >95% Perineural invasion: Present, frequent. Greatest tumor length: 0.8 cm B. Right prostate, mid, core biopsy: Prostatic adenocarcinoma: Arcadia grade: 5+5=10 Number of cores involved: 2 out of 2 Proportion of tissue involved: 80% Perineural invasion: Present. Greatest tumor length: 1.2 cm Focal high-grade prostatic intraepithelial neoplasia (HGPIN). C. Right prostate, base, core biopsy: Prostatic adenocarcinoma: Alfred grade: 3+5=8 Number of cores involved: 3 out of 3 Proportion of tissue involved: ~30% Perineural invasion: Present. Greatest tumor length: 0.9 cm, discontinuous. D. Left prostate, apex, core biopsy: Prostatic adenocarcinoma: Alfred grade: 5+4=9 Number of cores involved: 2 out of 2 Proportion of tissue involved: 75% Perineural invasion: Present. Greatest tumor length: 1.4 cm Focal high-grade prostatic intraepithelial neoplasia (HGPIN). E. Left prostate, mid, core biopsy: Prostatic adenocarcinoma: Alfred grade: 4+4=9 Number of cores involved: 2 out of 2 Proportion of tissue involved: >95% Perineural invasion: Not identified. Greatest tumor length: 1.4 cm Focal high-grade prostatic intraepithelial neoplasia (HGPIN). F. Left prostate, base, core biopsy: Prostatic adenocarcinoma: Alfred grade: 5+3=8 Number of cores involved: 2 out of 2 Proportion of tissue involved: ~75% Perineural invasion: Present. Greatest tumor length: 1.5 cm, discontinuous. Focal high-grade prostatic intraepithelial neoplasia (HGPIN). SJ:tessie 02/16/18 PSA RESULTS 1 Date Time Test Result Flag (u) Normal Range 01/14/18 1432 PSA, DIAGNOSTIC 50.90 H 0.0-4.0 ng/mL 1 This test was performed using the TPSA assay method for the Kublax chemistry system. Values obtained with different assay methods cannot be used interchangably. When changing PSA assays in the course of monitoring a patient, additional sequential testing should be carried out to confirm baseline values. Signed Edward Rivas 02/16/18 <signature on file> Performed By: #### PPROSBIL #### [facility] [place], [address] 12 LEAD ELECTROCARDIOGRAM Observed: 02/10/2018 Status: F Source: JORGE 9:59 AM [facility] REPOSITORY [facility] Cardiovascular Services [address] [place] [address] 12 Lead EKG 02/09/18 1515 MR#: [id number] Acct: [id number] Name: AMENA HUBBARD Rep #: [id number] : 1945 72 From: Ha Cuellar MD Attending Dr: Joel Wei MD Status: REG CLI Ordering Dr: Joel Wei MD Date: 02/09/18 Location: LAB Sex: M C Admitted: Test Reason : PREOP Blood Pressure : / mmHG Vent. Rate : 071 BPM Atrial Rate : 071 BPM P-R Int : 122 ms QRS Dur : 098 ms QT Int : 392 ms P-R-T Axes : 044 070 074 degrees QTc Int : 425 ms Normal sinus rhythm Normal ECG No previous ECGs available Confirmed by HA CUELLAR ([id number]), loan expeditor SHREYAS ESPINOSA ([id number]) on 02/10/2018 9:59:09 AM Referred By: Joel Wei Confirmed By:HA CUELLAR 02/10/18 0959 Date Ha Cuellar MD CC: Nikolas Riley; Joel Wei MD Signed CBC-COMPLETE BLOOD CNT Collected: 02/09/2018 Status: F Source: JORGE NO DIFF 3:05 PM [facility] REPOSITORY TYPE CODE TESTS RESULT OUT OF RANGE REFERENCE UNITS LAB L100.1000 4.4-11.0 K/mm3 Normal WBC 5.4 LAB L100.1200 4.6-6.2 M/mm3 Low RBC 4.22 LAB L100.1300 13.0-16.5 g/dl Normal HGB 13.1 LAB L100.1400 40-54 % Low HCT 39.0 LAB L100.1500 80-94 fL Normal MCV 92.4 LAB L100.1600 27.0-32.0 pg Normal MCH 31.0 LAB L100.1700 32-36 g/gl Normal MCHC 33.6 LAB L100.1810 11.6-14.6 % Normal RDW CV 12.8 LAB L100.1820 35.1-43.9 fl Normal RDW SD 42.3 LAB L100.1900 150-450 K/mm3 Normal PLT 166 LAB L100.2000 6.2-12.0 fl High MPV 12.1 Performed By: #### L100.0500 #### [facility] [address] [place], [place], [address] BASIC METABOLIC Collected: 02/09/2018 Status: F Source: DECATUR PROFILE (BMP) 3:05 PM [facility] REPOSITORY TYPE CODE TESTS RESULT OUT OF RANGE REFERENCE UNITS LAB L501.0100 74-106 mg/dL High GLU 135 Result Comment: Fasting Glucose result greater than or equal to 126 mg/dL suggests DIABETES MELLITUS per A.D.A. criteria. Please note revised GLUCOSE reference range effective 2017. LAB L501.1000 7-18 mg/dL Normal BUN 13 LAB L501.1100 0.70-1.30 mg/dL Normal CREAT,SERUM 0.96 Result Comment: The validity of the calculated GFR AND GFRAA in patients over 70 years has not been determined. Clinical correlation is essential. LAB L501.1110 >60 mL/min Normal EST GFR 81 Result Comment: Non- GFR Calc LAB L501.1115 >60 mL/min Normal EST GFR - AA 98 Result Comment: GFR Calc LAB L501.1300 10-20 RATIO Normal BUN/CRE 13.5 LAB L501.2200 8.5-10.1 mg/dL CA Normal 8.9 LAB L501.5300 136-145 mmol/L NA Normal 141 LAB L501.5600 3.5-5.1 mmol/L K Normal 4.3 LAB L501.5900 98-107 mmol/L CL Normal 104 LAB L501.6100 21.0-32.0 mmol/L Normal CO2 31.0 LAB L501.6200 5-15 Normal GAP 6 Performed By: #### L500.2500 #### [facility] [address] [place], [address] PSA,TOTAL- DIAGNOSTIC Collected: 01/14/2018 Status: F Source: DECATUR 2:32 PM [facility] TYPE CODE TESTS RESULT OUT OF REFERENCE UNITS RANGE LAB L501.9940 0.0-4.0 ng/mL PSA, High DIAGNOSTIC 50.90 Result Comment: This test was performed using the TPSA assay method for the K[employer] chemistry system. Values obtained with different assay methods cannot be used interchangably. When changing PSA assays in the course of monitoring a patient, additional sequential testing should be carried out to confirm baseline values. Performed By: #### L501.9940 #### [facility] [place], [address] CBC W/ AUTO DIFF Collected: 12/28/2017 Status: F Source: DRUZE 8:01 [facility] REPOSITORY TYPE CODE TESTS RESULT OUT OF RANGE REFERENCE UNITS LAB 45565887(L 3.6-11.0 E3/mcL OINC) Low WBC 3.5 LAB 96447121(L 3.90-6.10 E6/mcL OINC) Normal RBC 4.43 LAB 88244130(L 13.5-18.0 G/DL OINC) Low Hgb 13.3 LAB 27071689(L 42.0-52.0 % OINC) Low Hct 40.6 LAB 75247265(L 11.5-14.5 % OINC) Normal RDW 12.9 LAB 89033622(L 27.0-31.0 pg OINC) Normal MCH 30.1 LAB 96457129(L 33.0-37.0 G/DL OINC) Low MCHC 32.8 LAB 49885573(L 78.0-100.0 fL OINC) Normal MCV 91.7 LAB 21929460(L 7.4-11.0 fL OINC) Normal MPV 10.5 LAB 84841521(L 130-400 E3/mcL OINC) Normal Platelet 144 Performed By: #### [id number] #### REMY [facility] [place] [address] AUTO DIFF Collected: 12/28/2017 Status: F Source: DRUZE 8:01 [facility] REPOSITORY Order Comment: Order Added by Discern Expert. TYPE CODE TESTS RESULT OUT OF RANGE REFERENCE UNITS LAB 33079836(L 37.0-75.0 % OINC) Normal Neutro Auto 59.3 LAB 77269646(L 20.0-55.0 % OINC) Normal Lymph Auto 28.7 LAB 20256067(L 0.0-10.0 % OINC) Normal Gillespie Auto 7.0 LAB 56252532(L 0.0-11.0 % OINC) Normal Eos Auto 4.4 LAB 74219216(L 0.0-2.0 % OINC) Normal Basophil Auto 0.6 LAB 50610105(L 1.4-6.5 E3/mcL OINC) Normal Neutro 2.1 Absolute LAB 93478295(L 1.2-3.4 E3/mcL OINC) Low Lymph Absolute 1.0 LAB 22155987(L 0.0-0.7 E3/mcL OINC) Normal Gillespie Absolute 0.2 LAB 25059513(L 0.0-0.7 E3/mcL OINC) Normal Eos Absolute 0.2 LAB 13295257(L 0.0-0.2 E3/mcL OINC) Normal Basophil 0.0 Absolute Performed By: #### [id number] #### REMY Dorsey [address] [place] [address] CMP Collected: 12/28/2017 Status: F Source: DRUZE 8:01 AM [facility] REPOSITORY TYPE CODE TESTS RESULT OUT OF RANGE REFERENCE UNITS LAB 93047741(L 70-99 mg/dL OINC) High Glucose Lvl 117 LAB 19268031(L 8.4-10.2 mg/dL OINC) Calcium Normal Lvl 9.2 LAB 24184784(L 136-145 mEq/L OINC) Sodium Normal Lvl 138 LAB 01835888(L 3.5-5.1 mEq/L OINC) Normal Potassium Lvl 3.9 LAB 93581918(L 98-107 mEq/L OINC) Chloride Normal 103 LAB 62666112(L 24.0-30.0 mEq/L OINC) CO2 Normal 24.9 LAB 22368655(L 7-18 mg/dL OINC) BUN Normal 16 LAB 8512626(LO 0.6-1.3 mg/dL INC) Normal Creatinine 1.0 LAB 28691694(L 42-121 Int._Unit/ OINC) L Alk Phos Normal 55 LAB 47067540(L 0.2-1.0 mg/dL OINC) Bili Normal Total 0.8 LAB 23500050(L 3.2-5.0 G/DL OINC) Albumin Normal Lvl 4.5 LAB 47738079(L 6.4-8.3 G/DL OINC) Total Normal Protein 7.1 LAB 92485214(L 10-40 Int._Unit/ OINC) L ALT Normal 17 LAB 52661023(L 10-42 Int._Unit/ OINC) L AST Normal 20 LAB 67981715(L 5.4-30.0 ratio OINC) Normal BUN/Creat Ratio 16.0 LAB 05987494(L 2.0-4.0 G/DL OINC) Globulin Normal 2.6 LAB 91771201(L 1.1-1.9 ratio OINC) A/G Normal Ratio 1.7 Performed By: #### [id number] #### REMY [employer] [facility] [place] [address] EGFR Collected: 12/28/2017 Status: F Source: DRUZE 8:01 [facility] REPOSITORY Order Comment: Order added by Discern Expert. TYPE CODE TESTS RESULT OUT OF RANGE REFERENCE UNITS LAB 72405832(LO mL/min/1.73 INC) m2 Normal eGFR >60 LAB 02719321(LO mL/min/1.73 INC) m2 Normal eGFR AA >60 Performed By: #### [id number] #### REMY [employer] [address] [place] [address] LIPID PROFILE Collected: 12/28/2017 Status: F Source: DRUZE 8:01 [facility] REPOSITORY TYPE CODE TESTS RESULT OUT OF RANGE REFERENCE UNITS LAB 31096595(LO 50-200 mg/dL INC) Normal Chol 130 Result Comment: TOTAL CHOLEESTEROL: <200 NORMAL 200 - 239 BORDERLINE HIGH >240 HIGH LAB 91837622(LOINC) >=41 mg/dL Normal HDL 52 LAB 61362861(LOINC) 0-130 mg/dL Normal LDL 63 Result Comment: <100 OPTIMAL 100-129 NEAR / ABOVE OPTIMAL 130-159 BORDERLINE HIGH 160-189 HIGH >190 VERY HIGH CALC LDL NOT VALID WHEN TRIGLYCERIDE IS >400 MG/DL LAB 75706317(LOINC) 35-150 mg/dL Normal Trig 75 Result Comment: <150 NORMAL 150-199 BORDERLINE HIGH 200-499 HIGH >500 VERY HIGH LAB 70941195(LOINC) Normal VLDL 15 Performed By: #### [id number] #### REMY [facility] [facility] [place] [address] PSA TOTAL Collected: 12/28/2017 Status: F Source: DRUZE 8:01 AM [facility] REPOSITORY TYPE CODE TESTS RESULT OUT OF RANGE REFERENCE UNITS LAB 03687382(LO ng/mL INC) Normal PSA Total 52.45 Result Comment: AGE-SPECIFIC REFERENCE RANGES FOR SERUM PSA REFERENCE RANGE NG/ML AGE ASIANS BLACKS WHITE 40-49 0- 2 0-2 0-2.5 50-59 0- 3 0-4 0-3.5 60-69 0- 4 0-4.5 0-4.5 70-79 0- 5 0-5.5 0-6.5 PSA INCREASES WITH AGE, RACE, AND EJACULATION WITHIN 48 HRS. UROLOGIC CLINICS [facility] VOL24,NO.2, , PG.339 Performed By: #### [id number] #### REMY [employer] [address] [place] [address] SOFT TISSUE NECK Observed: 08/31/2017 Status: F Source: DRUZE W/ CONTRAST 2:03 PM [facility] REPOSITORY Exam Date/Time: 08/31/2017 14:27 EDT Reason for Exam: SORE THROAT PHARYNGITIS;Sore throat (pharyngitis) Report EXAM: CT SOFT TISSUE NECK WITH CONTRAST CLINICAL STATEMENT: Sore throat. COMPARISON: None. TECHNIQUE: CT examination of the soft tissues of the neck following?the administration of 100 mL of Omnipaque 300 intravenous contrast. Coronal and sagittal reformations were performed. ? Dose reduction techniques were achieved by using automated exposure control and/or adjustment of mA and/or kV according to patient size and/or use of iterative reconstruction technique. FINDINGS: The visualized intracranial and orbital structures are unremarkable. The parotid and submandibular glands are symmetric without focal lesion. The parapharyngeal fat planes are symmetric. A rounded density in the region of the left palatine tonsil is consistent with tonsillith. The nasopharynx and oropharynx are unremarkable. The epiglottis is normal in size and position. The prevertebral soft tissues are unremarkable. The larynx appears symmetric. The thyroid is homogeneous without a focal lesion. Scattered nonenlarged cervical lymph nodes are present. The major cervical vasculature is patent. Mild paraseptal emphysematous changes are noted in the lung apices. Pleuroparenchymal scarring is noted, left greater than right. There is disc space narrowing at C5-C6 and C6-C7 with anterior and posterior endplate spurring. This results in mild neural foramina narrowing on the left predominantly at C5-C6. The patient is edentulous. Mucosal thickening is noted in the left maxillary sinus with a polypoid appearance likely representing a mucous retention cyst. No air-fluid levels in the sinuses. The mastoid air cells are clear. IMPRESSION: No acute inflammatory process, soft tissue lesion or fluid collection in the cervical spine. Minimal paranasal sinus disease. Exam Date/Time: 08/31/2017 14:27 EDT Report Additional nonacute findings as above. FINAL REPORT Dictated: 08/31/2017 9:00 pm Hrapreet Maria MD Signed (Electronic Signature): 08/31/2017 9:00 pm Signed by: Harpreet Maria MD Technologist: TYLOR BUN Collected: 08/27/2017 Status: F Source: DRUZE 10:27 AM [facility] REPOSITORY TYPE CODE TESTS RESULT OUT OF RANGE REFERENCE UNITS LAB 10033120(LO 7-18 mg/dL INC) Normal BUN 12 Performed By: #### [id number] #### REMY [facility] [place] [address] EGFR Collected: 08/27/2017 Status: F Source: DRUZE 10:27 AM [facility] REPOSITORY Order Comment: Order added by Discern Expert. TYPE CODE TESTS RESULT OUT OF RANGE REFERENCE UNITS LAB 95852631(LO mL/min/1.73 INC) m2 Normal eGFR >60 LAB 22788836(LO mL/min/1.73 INC) m2 Normal eGFR AA >60 Performed By: #### [id number] #### REMY [employer] [address] [place] [address] CREATININE Collected: 08/27/2017 Status: F Source: DRUZE 10:27 AM [facility] REPOSITORY TYPE CODE TESTS RESULT OUT OF RANGE REFERENCE UNITS LAB 2141037(LO 0.6-1.3 mg/dL INC) Normal Creatinine 0.9 Performed By: #### [id number] #### REMY [employer] [address] [place] 6[address] HGBA1C Collected: 06/24/2017 Status: F Source: DRUZE 10:30 AM [facility] REPOSITORY TYPE CODE TESTS RESULT OUT OF RANGE REFERENCE UNITS LAB 837247517( 4.0-6.3 % LOINC) Normal Hemoglobin A1c 5.9 Performed By: #### [id number] #### REMY Chemistry Manual Subsection [address] 6[address]05 XR SPINE THORACIC 3 Observed: 06/24/2017 Status: F Source: DRUZE VIEWS 10:22 AM [facility] REPOSITORY Exam Date/Time: 06/24/2017 10:41 EST Reason for Exam: Pain, Non Traumatic Report XR Spine Thoracic 3 Views, 06/24/2017 10:22 AM CLINICAL STATEMENT: Pulling sensation after reaching. History of thoracic fracture, status post surgery one year ago. COMPARISON: CT 03/10/2016. FINDINGS: AP, lateral, and swimmer's views of the thoracic spine were obtained. There are postsurgical findings of posterior fusion of T5 through T9. T7 compression fracture appears similar to prior. Anterior wedging of T5 also appears similar. The hardware appears intact without evidence of loosening. No evidence of acute fracture or malalignment. Visualized portions of the lungs and heart are unremarkable. IMPRESSION: Postsurgical findings of T5 through T9 fusion for a T7 compression fracture, similar to prior. No acute abnormality identified on this study. FINAL REPORT Dictated: 06/24/2017 12:54 pm Harpreet Maria MD Signed (Electronic Signature): 06/24/2017 12:54 pm Signed by: Harpreet Maria MD Technologist: TYLOR ALLERGIES ALLERGIES DATE TYPE / CODE NAME / CODE REACTION SEVERITY SOURCE 03/31/2018 Drug No Known Unknown [facility] Allergy/416 Allergies/J55570 Hospital 939966(SNOM 0388(RXNORM) Repository ED CT) Drug/914953 aspirin Gnosticism 003(SNOMED [facility] CT) System Repository Drug/240789 No Known Gnosticism 003(SNOMED Allergies [facility] CT) System Repository ENCOUNTERS ENCOUNTERS ADMIT/DISCHARGE ACCOUNT NUMBER ADMITTING ENCOUNTER LOCATION SOURCE CLASS 04/26/2018 [id number] Ambulatory [facility] ding:CT Repository 04/20/2018 [id number] Ambulatory [facility] ding:CT Repository 04/07/2018/04/07/20 [id number] Ambulatory [address] ding:SDCRoom Repository : AC15 03/16/2018 [id number] Ambulatory [facility] ding:[place] IM 03/16/2018/03/16/20 [id number] [place], [address] ding[place] Repository IMRoom: Room 5 03/12/2018 [id number] Ambulatory [facility] ding:MRI Repository 02/25/2018 [id number] Ambulatory [facility] ding:CT Repository 02/19/2018 [id number] Ambulatory [facility] ding:NM Repository 02/12/2018 [id number] Ambulatory [facility] ding:LABSPEC Repository 02/09/2018 [id number] Ambulatory [facility] ding:LAB Repository 02/09/2018 [id number] Ambulatory BMSBuilding: [facility] Repository 01/14/2018 [id number] Ambulatory [facility] ding:LAB Repository 12/30/2017/12/31/19 [id number] Ambulatory [address] [facility] ing:Haile ndRoom: Waiting 12/28/2017/12/29/19 [id number] [facility] [address] ding:[facility] Repository 12/28/[id number] Repository 12/08/2017 [id number] Ambulatory [facility] ding:[place] Repository IM 12/08/2017/12/09/19 [id number] Ambulatory [address] ding:[place] Repository IMRoom: Room 5 10/28/2017/10/29/19 [id number] Ambulatory [address] ding:[place] Repository IM 09/15/2017/09/16/19 [id number] Ambulatory [address] ding:[place] Repository IMRoom: Room 5 08/31/2017/09/01/[id number] [facility] [address] ding:[facility] Repository 08/27/2017/08/28/[id number] [address] ding:[facility] Repository 08/25/2017/08/26/19 [id number] Ambulatory [address] ding:[place] Repository IMRoom: Room 5 07/11/2017/07/12/[id number] ding:CD:[address] [facility] [address]Duqt: Repository CD:[id number] 06/30/2017/06/30/19 [id number] Ambulatory [address] ding:[place] Repository IMRoom: Room 6 06/24/2017/06/24/[id number] ding:[facility] Repository 06/23/2017/06/23/19 [id number] Ambulatory [address] ding:[place] Repository IMRoom: Room 5 PAYERS PAYERS ENCOUNTER GUARANTOR PAYER SUBSCRIBER SOURCE 04/26/2018 AMENA E [id number] Primary AMENA E BAYSDOB: [place] [address] Insurance:MEDICARE [id number] [address], PART A [facility] [address]Vpw: Number: Repository [id number] (HP) Date:2018-04-22 04/26/2018 Secondary AMENA E BAYSDOB: Jorge Insurance:MEDICAIDPol [id number] Community icy Number: Hospital [id number] Repository Date:2018-04-22 04/26/2018 Tertiary NOT GIVENUNK [place] Insurance:SELF PAY Community [facility]: Effective Repository Date:2018-04-22 04/20/2018 AMENA E [id number] Primary AMENA E BAYSDOB: [place] [address] Insurance:MEDICARE [id number], PART [address] [facility] [address]Vts: Number: Repository [id number] (HP) Date:2018-04-07 04/20/2018 Secondary AMENA E BAYSDOB: [place] Insurance:MEDICAIDPol [id number] Community icy Number: Hospital [id number] Repository Date:2018-04-07 04/20/2018 Tertiary NOT GIVENUNK [place] Insurance:SELF PAY Counts Include [facility] Number: Effective Repository Date:2018-04-07 04/07/2018 AMENA E [id number] Primary AMENA E BAYSDOB: [place] [address] Insurance:MEDICARE [id number], PART A [facility] [place] [address]Qhi: Number: Repository [id number] (HP) Date:2018-03-10 04/07/2018 Secondary AMENA E BAYSDOB: [place] Insurance:MEDICAIDPol [id number] Community icy Number: Hospital [id number] Repository Date:2018-03-10 04/07/2018 Tertiary NOT GIVENUNK [place] Insurance:SELF PAY Community [facility] Number: Effective Repository Date:2018-03-10 03/16/2018 AMENA E BAYSDOB: Primary AMENA E BAYSDOB: Gnosticism [id number] BOX Insurance:[id number] [id number] PR[place]: [address], [place] [address]Wdk: Date:2018-03-16 [address]Eet: [id number] (HP) Name:CD:[id number] O (HP)Tel: (000) [address], 000[address] (WP) [place] [address]DX: 03/16/2018 Secondary AMENA E BAYSDOB: Gnosticism Insurance:[facility] [id number] MEDICA[address] System PRIMARYPolicy Number: [address], Repository Effective [place] Date:2018-03-1694316-7422Tao: [id number] Name:CD:[id number] O (HP)Tel: (000) [address], [place] 000[address] ([place]) [address]GG: 03/16/2018 AMENA E BAYSDOB: Primary AMENA E BAYSDOB: Gnosticism [id number] [address]OX Insurance:[facility] [id number] [address] PRIMARYPolicy Number: [address], [place] [address]Zli: Date:2018-03-1691504-1379Tjt: [id number] (HP) Name:CD:[id number] O (HP)Tel: (000) [address], 000-0000 ([place]) [place] [address]PB: 03/16/2018 Secondary AMENA E BAYSDOB: Gnosticism Insurance:[facility] [id number] MEDICAID [address] System PRIMARYPolicy Number: [address], Repository Effective [place] Date:2018-03-1652251-2652Qpy: [id number] Name:CD:[id number] O (HP)Tel: (000) [address], [place] 000[address] ([place]) [address]DF: 03/12/2018 AMENA E [id number] Primary AMENA E BAYSDOB: [place] [address] Insurance:MEDICARE [id number] [place] [address]Fcp: Number: Repository [id number] (HP) Date:2018-03-09 03/12/2018 Secondary AMENA E BAYSDOB: [place] Insurance:MEDICAIDPol [id number] Community icy Number: Hospital [id number] Repository Date:2018-03-09 03/12/2018 Tertiary NOT GIVENUNK [place] Insurance:SELF PAY Counts Include [address] [facility] Number: Effective Repository Date:2018-03-09 02/25/2018 AMENA E BAYSPo Primary AMENA E BAYSDOB: [place] Box Insurance:MEDICARE [id number] [address]Ugz: Number: Repository [id number] (HP) Date:2018-02-17 02/25/2018 Secondary AMENA E BAYSDOB: [place] Insurance:[place] [id number] Community icy Number: Hospital [id number] Repository Date:2018-02-17 02/25/2018 Tertiary NOT GIVENUNK [place] Insurance:SELF PAY Counts Include [address] [facility] Number: Effective Repository Date:2018-02-17 02/19/2018 Amena E BaysPo Primary Amena E BaysDOB: [place] Box Insurance:MEDICARE [id number] [place] [address]Gxk: Number: Repository [id number] (HP) Date:2018-02-17 02/19/2018 Secondary Amena E BaysDOB: Jogre Insurance:MEDICA[place]Pol [id number] Community icy Number: Hospital [id number] Repository Date:2018-02-17 02/19/2018 Tertiary NOT GIVENUNK [place] Insurance:SELF PAY Community [facility] Number: Effective Repository Date:2018-02-17 02/12/2018 Amena E BaysPo Primary Amena E BaysDOB: [place] Box Insurance:MEDICARE [id number], PART A [facility] [place] [address]Tqm: Number: Repository [id number] (HP) Date:2018-02-12 02/12/2018 Secondary Amena E BaysDOB: [place] Insurance:[place]ICA[place]Pol [id number] Community icy Number: Hospital [id number] Repository Date:2018-02-12 02/12/2018 Tertiary NOT GIVENUNK [place] Insurance:SELF PAY Counts Include [address] [facility] Number: Effective Repository Date:2018-02-12 02/09/2018 Amena E BaysPo Primary Amena E BaysDOB: Jorge Box Insurance:MEDICARE [id number] A [facility] [place] [address]Ida: Number: Repository [id number] (HP) Date:2018-02-09 02/09/2018 Secondary Amena E BaysDOB: [place] Insurance:MEDICAIDPol [id number] Charlottey Number: Hospital [id number] Repository Date:2018-02-09 02/09/2018 Tertiary NOT GIVENUNK Jorge Insurance:SELF PAY Counts Include [facility] Number: Effective Repository Date:2018-02-09 02/09/2018 AMENA E BAYSPo Primary AMENA E BAYSDOB: Jorge Box Insurance:MEDICARE [id number] PART A [facility] [place] [address]Ywz: Number: Repository [id number] (HP) Date:2018-02-09 02/09/2018 Secondary AMENA E BAYSDOB: [place] Insurance:MEDICAIDPol [id number] Community icy Number: Hospital [id number] Repository Date:2018-02-09 02/09/2018 Tertiary NOT GIVENUNK Jorge Insurance:SELF PAY Counts Include 234 [facility] Number: Effective Repository Date:2018-02-09 01/14/2018 Amena E BaysPo Primary Amena E BaysDOB: Jorge Box Insurance:MEDICARE [id number], PART A [facility] [place] [address]Qnv: Number: Repository [id number] (HP) Date:2018-01-14 01/14/2018 Secondary Amena E BaysDOB: Jorge Insurance:MEDICAIDPol [id number] Counts Include 234 Beds [facility] icy Number: Hospital [id number] Repository Date:2018-01-14 01/14/2018 Tertiary NOT GIVENUNK Jorge Insurance:SELF PAY Counts Include 234 Beds [facility] Number: Effective Repository Date:2018-01-14 12/30/2017 AMENA E BAYSDOB: Primary AMENA E BAYSDOB: [place] [id number] BOX Insurance:1500 [id number] Hospital [facility] [id number] MEDICARE [address] PR[place]Policy Number: [address], Repository [place] [id number]: Effective [place] [id number]: Date:2017-12-30 - (HP) 3371-51-38Tuui ()Tel: (000) Name:CD:[id number] O 000-0000 () [address] [address]NLVDVCX, [place] [address]VR: 12/30/2017 Secondary AMENA E BAYSDOB: [place] Insurance:1500 [id number] Hospital for Children MEDICAID [address] System PRIMARYPolicy Number: [place], Repository Effective [place] [id number]: Date:2017-12-30 - 0182-15-28Klrc ()Tel: (000) Name:CD:[id number] O 000-0000 (WP) [address], [place] [address]RL: 12/28/2017 AMENA E BAYSDOB: Primary AMENA E BAYSDOB: [place] [id number] BOX Insurance:MedicarePol [id number] Hospital for Children [id number] icy Number: Effective [id number], Date:2017-12-28 - [address], Repository [place] [id number]: [id number] [place] [id number]: Name:CD:[id number] [address] () [address]MZLJGZZYCK, [place] ()Tel: [phone]) [phone]: () [phone] 12/28/2017 AMENA BAYSDOB: Primary AMENA BAYSDOB: [place] [id number] BOX Insurance:MedicarePol [id number] [facility] icy Number: BOX Repository [place] [id number]: [id number] [address] [place] [address], Date:Plan Name:[facility] [id number]: (HP) A () 12/28/2017 Secondary AMENA BAYSDOB: University Insurance:MedicarePol [id number] Hospitals icy Number: BOX Repository [id number] [address] [place] [address], Date:Plan Name:[facility] [id number]: B () 12/28/2017 Tertiary AMENA BAYSDOB: [place] Insurance:MedicaidPol [id number] Hospitals icy Number: BOX Repository [id number] [address] [place] [address], Date:Plan [place] [id number]: Name:[facility] [address] () [address]VX: 12/08/2017 AMENA E BAYSDOB: Primary AMENA E BAYSDOB: [place] [id number] BOX Insurance:[facility] [id number] Hospital for Children [id number] MEDICARE [address], PRIMARYPolicy Number: [address], Repository [place] [id number]: Effective [place] [id number]: Date:2017-12-08 - () 9619-89-51Wswh (HP)Tel: (000) Name:CD:[id number] O 000-0000 (WP) [address]TVQYWJPYL, [place] [address]QV: 12/08/2017 Secondary AMENA E BAYSDOB: [place] Insurance:[facility] [id number] [facility] MEDICAID BOX [facility] ST RT System PRIMARYPolicy Number: [address], Repository Effective [place] [id number]: Date:2017-12-08 2113-79-19Tekl (HP)Tel: (000) Name:CD:[id number] O 000-0000 (WP) [address], [place] [address]NV: 12/08/2017 AMENA E BAYSDOB: Primary AMENA E BAYSDOB: [place] [id number] BOX Insurance:[facility] [id number] [place] [address] ST RT MEDICARE BOX [facility] ST RT System [address], PRIMARYPolicy Number: [address], Repository [place] [id number]: Effective [place] [id number]: Date:2017-09-15 (HP) 6346-60-91Nfvh (HP)Tel: (000) Name:CD:[id number] O 000-0000 (WP) [address] [address]AGWY, [place] [address]EA: 12/08/2017 Secondary AMENA E BAYSDOB: [place] Insurance:[facility] [id number] [facility] MEDICAID BOX [facility] ST RT System PRIMARYPolicy Number: [address], Repository [place] [id number]: Date:2017-09-15 6186-46-59Rcpy (HP)Tel: (000) Name:CD:[id number] O 000-0000 (WP) [address], [place] [address]MR: 10/28/2017 AMENA E BAYSDOB: Primary AMENA E BAYSDOB: [place] [id number] BOX Insurance:[id number] Hospital for Children [id number] MEDICARE [address] [place], PRIMARYPolicy Number: [place], Repository [place] [id number]: Effective [place] [id number]: Date:2017-06-30 (HP) 7067-22-52Xtpk (HP)Tel: (000) Name:CD:[id number] O 000-0000 (WP) [address]CFVEZMYUQ, [place] [address]EE: 10/28/2017 Secondary AMENA E BAYSDOB: [place] Insurance:[facility] [id number] [facility] MEDICAID BOX [facility] ST RT System PRIMARYPolicy Number: [place], Repository Effective [place] [id number]: Date:2017-06-30 - 4397-61-33Wuqz (HP)Tel: (000) Name:CD:[id number] O 000-0000 (WP) BOX [facility] [address]NY: 09/15/2017 AMENA E BAYSDOB: Primary AMENA E BAYSDOB: [place] [id number] BOX Insurance:[facility] [id number] Hospital for Children [id number] MEDICARE [address] [place], PRIMARYPolicy Number: [place], Repository [place] [id number]: Effective [place] [id number]: Date:2017-08-25 (HP) 8207-23-87Smnn (HP)Tel: (000) Name:CD:[id number] O 000-0000 (WP) [address] [address]PHCO[place] [address]KR: 09/15/2017 Secondary AMENA E BAYSDOB: [place] Insurance:[facility] [id number] Hospital for Children MEDICAID [address] System PRIMARYPolicy Number: [address], Repository [place] [id number]: Date:2017-08-25 - 4598-81-63Kioi ()Tel: (000) Name:CD:[id number] O 000-0000 (WP) [address] [address]MO: 08/31/2017 AMENA E BAYSDOB: Primary AMENA E BAYSDOB: [place] [id number] BOX Insurance:MedicarePol [id number] Hospital for Children [id number] icy Number: Effective [address], Date:2017-08-25 - [address], Repository [place] [id number]: 6152-52-22Jyoi [place] [id number]: Name:CD:[id number] BOX (HP) [address]9093RIXHTISDYF, [place] ()Tel: (000) [phone]: (WP) [phone] 08/27/2017 AMENA E BAYSDOB: Primary AMENA E BAYSDOB: [place] [id number] BOX Insurance:MedicarePol [id number] Hospital for Children [id number] icy Number: Effective [address], Date:2017-08-27 - [address], Repository [place] [id number]: 4317-22-82Wshi [place] [id number]: Name:CD:[id number] BOX (HP) [address]26[address]TEHHIAZNQS, [place] ()Tel: (000) [phone]: (WP) [phone] 08/27/2017 Secondary AMENA E BAYSDOB: [place] Insurance:MedicaidPol [id number] Hospital for Children icy Number: Effective [address] System Date:2017-08-27 - [address], Repository 6697-39-88[place] [id number]: Name:CD:[id number] E [facility] [address] (HP)Tel: (000) [place] 000-0000 (WP) [phone]: 08/25/2017 AMENA E BAYSDOB: Primary AMENA E BAYSDOB: [place] [id number] BOX Insurance:[facility] [id number] Hospital for Children [id number] MEDICARE [address], PRIMARYPolicy Number: [address], Repository [place] [id number]: Effective [place] [id number]: Date:2017-08-25 - (HP) 3091-06-40Pukv (HP)Tel: (000) Name:CD:[id number] O 000-0000 () [address]CERJIJM, [place] [address]HV: 08/25/2017 Secondary AMENA E BAYSDOB: [place] Insurance:[facility] [id number] Hospital for Children MEDICAID [address] System PRIMARYPolicy Number: [address], Repository [place] [id number]: Date:2017-08-25 - 8319-64-94Npbr (HP)Tel: (000) Name:CD:[id number] O 000-0000 () [address] [address]PA: 07/11/2017 AMENA E BAYSDOB: Primary AMENA E BAYSDOB: [place] [id number] BOX Insurance:MedicarePol [id number] Hospital for Children [id number] icy Number: Effective [address], Date:2017-07-11 - [address], [place]ository [place] 5339-42-43[place]ld [place] [address]Vww: Name:CD:[id number] [address] [address]Xvp: [id number], [place] (HP) [phone]: (079) (HP) [phone] (WP) 06/30/2017 AMENA E BAYSDOB: Primary AMENA E BAYSDOB: [place] [id number] BOX Insurance:[facility] [id number] [place] [address] MEDICARE [address], PRIMARYPolicy Number: [address], Repository [place] [id number]: Effective [place] [id number]: Date:2017-01-28 - (HP) 2975-97-87Luhs (HP)Tel: (000) Name:CD:[id number] O 000-0000 () [address] [place] [address]GC: 06/30/2017 Secondary AMENA E BAYSDOB: [place] Insurance:[facility] [id number] [facility] MEDICAID BOX [facility] [address] RT System PRIMARYPolicy Number: [address], Repository Effective [place] [id number]: Date:2017-01-28 - 5946-21-60Kuhh ()Tel: (000) Name:CD:[id number] O 000-0000 () [address], [place] [address]TC: 06/24/2017 AMENA E BAYSDOB: Primary AMENA E BAYSDOB: [place] [id number] BOX Insurance:MedicarePol [id number] [place] [address] icy Number: Effective [address], Date:2017-06-24 - [address], Repository [place] [id number]: 9568-48-03Yghi [place] [id number]: Name:CD:[id number] BOX (HP) 367[address]RKZVXERAMY, [place] ()Tel: (000) [phone]: (WP) [phone] 06/24/2017 Secondary AMENA E BAYSDOB: [place] Insurance:MedicaidPol [id number] Hospital for Children icy Number: Effective [address] System Date:2017-06-24 - [address], Repository 1772-38-90Mnti [place] [id number]: Name:CD:[id number] E [address] (HP)Tel: (000) [facility]AM[facility], [place] 000-0000 (WP) [id number]: 06/23/2017 AMENA E BAYSDOB: Primary AMENA E BAYSDOB: [place] [id number] BOX Insurance:[facility] [id number] [place] [id number] MEDICARE [address] [place], PRIMARYPolicy Number: [place], Repository [place] [id number]: Effective [place] [id number]: Date:2017-06-23 - (HP) 7880-99-81Bqug (HP)Tel: (000) Name:CD:[id number] O 000-0000 (WP) [address]AP[place], [place] [address]NK: 06/23/2017 Secondary AMENA E BAYSDOB: [place] Insurance:1500 [id number] Hospital for Children MEDICAID [address] System PRIMARYPolicy Number: [address], Repository [place] [id number]: Date:2017-06-23 - 1655-35-22Jeag (HP)Tel: (000) Name:CD:[id number] O 000-0000 (WP) [address], [place] [address]VI:
== END 2018-04-07 11:27 | disposition home or self-care (01) ==
LOC: SDC 08:03 → AC 08:04
PROVIDERS: Family Provider Internal Medicine; PCP Internal Medicine; Referring Provider Urology; Visit Provider Urology
PROC: (CPT 55874; principal; 2018-04-07 09:55)
DX: C61 Malignant neoplasm of prostate (principal); I10 Essential (primary) hypertension; E11.9 Type 2 diabetes mellitus without complications; K40.90 Unilateral inguinal hernia, without obstruction or gangrene, not specified as recurrent; R97.20 Elevated prostate specific antigen [PSA]; N40.2 Nodular prostate without lower urinary tract symptoms; Z87.891 Personal history of nicotine dependence; Z80.42 Family history of malignant neoplasm of prostate; F41.9 Anxiety disorder, unspecified; K21.9 Gastro-esophageal reflux disease without esophagitis
CPT/HCPCS: 55876; J7120; J2405

== ENCOUNTER → 2018-04-20 09:06 | Outpatient (CLI) | payer MEDICARE, MEDICAID, SELFPAY ==
[2018-04-07 08:27] VITALS: BMI 22.3
[2018-04-20 09:39] LABS: Absolute Lymphocyte Count 0.87 X10^3/ul (0.83-4.51); Absolute Neutrophil Count 4.5 X10^3/uL (2.0-7.7); Basophil# 0.01 X10^3/uL; Basophil% 0.2 % (0-1); Eosinophil# 0.11 X10^3/uL; Eosinophils% 1.8 % (0-5); Hematocrit 42.4 % (40-54); Hemoglobin 14.2 g/dl (13.0-16.5); Lymphocyte # 0.87 X10^3/ul (4.0); Lymphocyte % 14.6 % (19-41); Mean Corp Hgb Conc 33.5 g/gl (32-36); Mean Corpuscular Hgb 31.4 pg (27.0-32.0); Mean Corpuscular Volume 93.8 fL (80-94); Mean Platelet Vol. 11.2 fl (6.2-12.0); Monocyte# 0.51 X10^3/uL; Monocyte% 8.5 % (0-10); Neutrophil # 4.46 X10^3/uL (2.7-7.7); Neutrophil % 74.7 % (47-70); Platelet Count 169 K/mm3 (150-450); RBC Distribution Width CV 12.4 % (11.6-14.6); RBC Distribution Width SD 41.9 fl (35.1-43.9); Red Blood Count 4.52 M/mm3 (4.6-6.2)
[2018-04-20 10:16] LABS: Creatinine, Serum 0.89 mg/dL (0.70-1.30); EST Glomerular Filtration Rate 89 mL/min (>60); Est Glom Filt Rate - Afr Amer 107 mL/min (>60)
--- NOTE | 2018-04-20 11:23 | CT_ITS ---
STUDY: CT PELVIS WITH CONTRAST REASON FOR EXAM: Male, 72 years old. Prostate cancer. RADIATION DOSAGE (If Supplied By Facility): CTDIvol = ( 24.62 ) mGy, DLP = ( 1417.52 ) mGycm TECHNIQUE: Transaxial imaging of the pelvis was performed with oral contrast. 100 ml of Isovue 300 contrast was administered intravenously. Individualized dose optimization techniques were used for this CT. COMPARISON: MRI of the pelvis, March 12, 2018. CT of the abdomen abdomen and pelvis, February 25, 2018. FINDINGS: Normal urinary bladder. The prostate is markedly enlarged and invaginates into the bladder floor. There are small metallic foreign bodies the prostate on the current study as well as central calcifications. There is prominence of the seminal vesicles. There is fluid density between the prostate and anterior rectal wall, not seen on the prior studies Normal visualized small intestine. Normal visualized colon. There is no pelvic fluid. There is no pelvic lymphadenopathy or mass lesion. Normal visualized pelvic arteries. There is a left inguinal hernia of omental fat. There abdominal wall is otherwise unremarkable. There is a implant within the penis. Normal osseous structures. CT/CT Pelvis W/CONT Therapy IMPRESSION: 1. Enlarged prostate. This appears similar in size to prior study. There are metallic clips in both lateral aspects of the prostate. 2. New low-attenuation area between the posterior prostate and anterior rectal wall not seen on previous studies. Etiology for this fluid is uncertain. 3. No free fluid is seen within the pelvis Electronically Signed: Mono Meyer DO at 23:27 EST Tel [phone], Service support ,
[2018-04-20 15:04] LABS: POSITIVE COUNT NO; POSITIVE DIFFERENTIAL NO; POSITIVE MORPHOLOGY NO
--- OUTSIDE RECORDS SUMMARY | 2018-06-06 07:38 | XMS RPT_ITS ---
:1945 Author Organization OHIP Support Name Relationship Address Phone LOIS HUBBARD Unavailable [address] [place] [address] R Unavailable Unavailable Unavailable BAYS, LOIS Unavailable [address] + [address] [place] [address] R Unavailable Unavailable Unavailable BAYS, LOIS Unavailable [address] + [address] [place] [address] R Unavailable Unavailable Unavailable BAYS, LOIS Unavailable [address] + [place] [address] R Unavailable Unavailable Unavailable BAYS, LOIS Unavailable [address] + [place] [address] R Unavailable Unavailable Unavailable BAYS, LOIS Unavailable [address] + [place] [address] R Unavailable Unavailable Unavailable BAYS, LOIS Unavailable [address] + [place] [address] S Unavailable Unavailable Unavailable BAYS, LOIS Unavailable [address] + [place] [address] S Unavailable Unavailable Unavailable BAYS, LOIS Unavailable [address] + [place] [address] R Unavailable Unavailable Unavailable BAYS, LOIS Unavailable [address] + [place] [address] S Unavailable Unavailable Unavailable BAYS, LOIS Unavailable Unavailable + Care Team Providers Name Role Phone Mike Loyd Attending Unavailable Mike Loyd Referring Unavailable Sulmahad, Saksham Primary Care Unavailable Nidhi Schneider Attending [...] Unavailable [place]ove, Saksham Primary Care Unavailable Mike Doonvan Admitting Unavailable Mike Donovan Attending Unavailable Nikolas Riley Primary Care Unavailable Dr. 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 Community / C61(ICD-10) Hospital Repository 03/11/2018 Unknown Z01.810 - Encounter Ha Cuellar Active [facility] for preprocedural [facility] examination / Repository Z01.810(ICD-10) PROCEDURES PROCEDURES No Procedure Records FoundRESULTS RESULTS Observed: 05/14/2018 Status: F Source: [facility] STREP CONFIRM 1:49 PM [facility] REPOSITORY Final Report: No Beta Hemolytic Streptococci Isolated Performed By: #### CD:[id number] #### [facility] Microbiology Subsection [address] [place] [address] POC STREP A Collected: 05/14/2018 Status: F Source: [facility] 1:43 PM [facility] REPOSITORY TYPE CODE TESTS RESULT OUT OF RANGE REFERENCE UNITS LAB CD:[id number] Negative 283(LOINC) Normal Strep A Negative Screen LAB CD:[id number] Positive 315(LOINC) Normal Strep A Positive Scrn Int Ctl Performed By: #### CD:[id number] #### [facility] POC Subsection [address] [place] [address] CT PELVIS W/O Observed: 04/26/2018 Status: F Source: [facility] CONT/THERAPY 12:28 PM [facility] HOSPITAL REPOSITORY [facility] Imaging Services [address] [place] [address] Pelvis w/o Cont/Therapy MR#: [id number] Acct: [id number] Name: AMENA HUBBARD Rep #: [id number] : 1945 M 72 From: Mihai Mott MD PCP: Nikolas Riley Status: REG CLI Study: CT Pelvis w/o Cont/Therapy Date of Exam: 04/26/18 Exam# [id number] Ordering Dr: Mike Loyd MD STUDY: CT [...] Mihai Mott MD at 10:48 EST Tel [phone], Service support , CC: Nikolas Riley; Mike Loyd MD Clinical Informatics Spec: Signed CT PELVIS W/CONT Observed: 04/20/2018 Status: F Source: [facility] THERAPY 11:23 AM [facility] [facility] Imaging Services [address] [place] [address] Pelvis W/CONT Therapy MR#: [id number] Acct: [id number] Name: AMENA HUBBARD Rep #: [id number] : 1945 M 72 From: Mono Meyer DO PCP: Nikolas Riley Status: REG CLI Study: CT Pelvis W/CONT Therapy Date of Exam: 04/20/18 Exam# [id number] Ordering Dr: Mike Loyd MD STUDY: CT [...] Mono Meyer DO at 23:27 EST Tel [phone], Service support , CC: Nikolas Riley; Mike Loyd MD Clinical Informatics Spec: Signed CBC W/DIFF, AUTOMATED Collected: 04/20/2018 Status: F Source: [place]GE 9:17 AM [facility] TYPE CODE TESTS RESULT OUT OF [...] Lymph 0.87 Performed By: #### L100.0100 #### [facility] [address] [facility] [address] [place], [address] SERUM CREATININE AND Collected: 04/20/2018 Status: F Source: [place] GFR 9:17 AM [facility] TYPE CODE TESTS RESULT OUT OF [...] Calc Performed By: #### L501.1105, L501.9940 #### [facility] [address] [place], [address] PSA,TOTAL- DIAGNOSTIC Collected: 04/20/2018 Status: F Source: [place] 9:17 AM [facility] [place] TYPE CODE TESTS RESULT OUT OF REFERENCE UNITS RANGE LAB L501.9940 0.0-4.0 ng/mL PSA, High DIAGNOSTIC 15.60 Result Comment: This test was performed using the TPSA assay method for the FAGUO chemistry system. Values obtained with different assay methods cannot be used interchangably. When changing PSA assays in the course of monitoring a patient, additional sequential testing should be carried out to confirm baseline values. Performed By: #### L501.1105, L501.9940 #### [facility] [address] [place], [address] OPERATIVE REPORT Observed: 04/07/2018 Status: F Source: [place] 10:36 AM [facility] [place] [facility] Medical Records Department [address] [facility] [place] [address] Operative Report 04/07/18 1032 MR#: [id number] Acct: [id number] Name: AMENA HUBBARD Rep #: [id number] : 1945 72 From: Barry Turner MD PCP: Nikolas Riley Status: [facility] Y Location: [place] [address] Report of Operation Date of Procedure: 04/07/18 [...] into the right spot I dropped the marker hand on the right side then placed another [...] DISCHARGE INSTRUCTION Observed: 04/07/2018 Status: F Source: J[place]GE 10:02 AM [facility] [place] [facility] Medical Records Department [address] [place] [address] Instructions for Home/Discharge Instructions 04/07/18 1001 MR#: [id number] Acct: [id number] Name: AMENA HUBBARD Rep #: [id number] : 1945 72 From: Barry Turner MD PCP: Nikolas Riley Status: REG SDC Discharge Diet: Light diet - advance as [...] PO DAILY 03/15/16 Fluticasone 0.05% [Flonase Nasal [place]] 1 spray NASAL PRN PRN 03/15/16 Lisinopril [...] W/WO CONTRAST Observed: 03/12/2018 Status: F Source: JORGE 3:30 PM [facility] [place] [facility] Imaging Services [address] [place] [address] Pelvis W/WO Contrast MR#: [id number] Acct: [id number] Name: AMENA HUBBARD Rep #: [id number] : 1945 M 72 From: Mono Meyer DO PCP: Nikolas Riley Status: REG CLI Study: Pelvis W/WO Contrast Date of Exam: 03/12/18 Exam# [id number] Ordering Dr: Mike Loyd MD STUDY: MR [...] Mono Meyer DO at 16:37 EST Tel [phone], Service support , CC: Nikolas Riley; Mike Loyd MD Clinical Informatics Spec: Signed ABDOMEN/PELVIS WITH Observed: 02/25/2018 Status: F Source: J[place]GE CONTRAST 2:17 PM [facility] [place] [facility] Imaging Services [address] [place] [address] Abdomen/Pelvis WITH Contrast MR#: [id number] Acct: [id number] Name: AMENA HUBBARD Rep #: [id number] : 1945 M 72 From: Harpreet Mccoy MD PCP: Nikolas Riley Status: REG CLI Study: Abdomen/Pelvis WITH Contrast Date of Exam: 02/25/18 Exam# [id number] Ordering Dr: Barry Turner MD STUDY: CT [...] , CC: Nikolas Riley; Barry Turner MD Clinical Informatics Spec: Signed BONE SCAN WHOLE Observed: 02/19/2018 Status: F Source: [place] BODY 8:49 AM [facility] [place] [facility] Imaging Services [address] [place], [place] [address] [address] Bone Scan Whole Body MR#: [id number] Acct: [id number] Name: AMENA HUBBARD Rep #: [id number] : 1945 M 72 From: Maxwell Price DO PCP: Nikolas Riley Status: REG CLI Study: Bone Scan Whole Body Date of Exam: 02/19/18 Exam# [id number] Ordering Dr: Barry Turner MD CLINICAL: 72-year-old [...] articulation and right forefoot. Electronically Signed: Maxwell PriceDO at 8:14 EDT Tel , Service support , CC: Nikolas Riley; Barry Turner MD Clinical Informatics Spec: Signed PROSTATE BIOPSY Observed: 02/12/2018 Status: F Source: [place] BILATERAL 10:59 AM [facility] [place] Patient: AMENA HUBBARD : 1945 (72/M) Acct Num: [id number] Phys: Johnny RAHMAN,Barry Hagen Unit Num: [id number] Loc: LABSPEC Specimen: [id number] Received: 02/12/182 Spec Type: PROST BX TISSUES 1 TISSUES: [...] is totally submitted in one cassette. / SJ:tessie 02/15/18 TC:0 CPT: G0146 HEADER OPERATION: PRE-OP DIAGNOSIS: TISSUE SUBMITTED: A - Right apex, B - Right mid, C - Right base, D - Left apex, E - Left mid, F - Left base MICROSCOPIC DESCRIPTION Slides are reviewed. MICROSCOPIC DIAGNOSIS A. Right prostate, apex, core biopsy: Prostatic adenocarcinoma: Alfred grade: 5+4=9 Number of cores involved: 1 out of 1 Proportion of tissue involved: >95% Perineural invasion: Present, frequent. Greatest tumor length: 0.8 cm B. Right prostate, mid, core biopsy: Prostatic adenocarcinoma: Aldrich grade: 5+5=10 Number of cores involved: 2 [...] Left prostate, base, core biopsy: Prostatic adenocarcinoma: Aldrich grade: 5+3=8 Number of cores involved: 2 out of 2 Proportion of tissue involved: ~75% Perineural invasion: Present. Greatest tumor length: 1.5 cm, discontinuous. Focal high-grade prostatic intraepithelial neoplasia (HGPIN). SJ:tessie 02/16/18 PSA RESULTS 1 Date Time Test Result Flag (u) Normal Range 01/14/18 1432 PSA, DIAGNOSTIC 50.90 H 0.0-4.0 ng/mL 1 This test was performed using the TPSA assay method for the FAGUO chemistry system. Values obtained with different assay methods cannot be used interchangably. When changing PSA assays in the course of monitoring a patient, additional sequential testing should be carried out to confirm baseline values. Signed Edward Rivas 02/16/18 <signature on file> Performed By: #### PPROSBIL #### [facility] [address] [place], [place] [address], [address] 12 LEAD ELECTROCARDIOGRAM Observed: 02/10/2018 Status: F Source: [place] 9:59 AM [facility] [place] [facility] Cardiovascular Services [address] [place] [address] 12 Lead EKG 02/09/18 1515 MR#: [id number] Acct: [id number] Name: AMENA HUBBARD Rep #: [id number] : 1945 72 From: Ha Cuellar MD [...] ECGs available Confirmed by HA CUELLAR ([id number]), video tape editor SHREYAS ESPINOSA ([id number]) on 02/10/2018 9:59:09 AM Referred By: Joel Wei Confirmed By:HA CUELLAR 02/10/18 0959 Date Ha Cuellar MD CC: Nikolas Riley; Joel Wei MD Signed CBC-COMPLETE BLOOD CNT Collected: 02/09/2018 Status: F Source: J[place]GE NO DIFF 3:05 PM [facility] [place] TYPE CODE TESTS RESULT OUT OF [...] MPV 12.1 Performed By: #### L100.0500 #### [facility] [place], [address] BASIC METABOLIC Collected: 02/09/2018 Status: F Source: J[place]GE PROFILE (BMP) 3:05 PM [facility] [place] TYPE CODE TESTS RESULT OUT OF [...] GAP 6 Performed By: #### L500.2500 #### [facility] [address] [facility], [address] PSA,TOTAL- DIAGNOSTIC Collected: 01/14/2018 Status: F Source: [place] 2:32 PM [facility] [place] TYPE CODE TESTS RESULT OUT OF REFERENCE UNITS RANGE LAB L501.9940 0.0-4.0 ng/mL PSA, High DIAGNOSTIC 50.90 Result Comment: This test was performed using the TPSA assay method for the FAGUO chemistry system. Values obtained with different assay methods cannot be used interchangably. When changing PSA assays in the course of monitoring a patient, additional sequential testing should be carried out to confirm baseline values. Performed By: #### L501.9940 #### [facility] [address] [place] [place], [address] CBC W/ AUTO DIFF Collected: 12/28/2017 Status: F Source: [facility] 8:01 AM [facility] REPOSITORY TYPE CODE TESTS RESULT OUT OF RANGE REFERENCE UNITS LAB 46898000(L 3.6-11.0 E3/mcL OINC) Low WBC 3.5 LAB 07696659(L 3.90-6.10 E6/mcL OINC) Normal RBC 4.43 LAB 16415745(L 13.5-18.0 G/DL OINC) Low Hgb 13.3 LAB 81710328(L 42.0-52.0 % OINC) Low Hct 40.6 LAB 62749077(L 11.5-14.5 % OINC) Normal RDW 12.9 LAB 02881194(L 27.0-31.0 pg OINC) Normal MCH 30.1 LAB 66385508(L 33.0-37.0 G/DL OINC) Low MCHC 32.8 LAB 96811283(L 78.0-100.0 fL OINC) Normal MCV 91.7 LAB 77392085(L 7.4-11.0 fL OINC) Normal MPV 10.5 LAB 58850951(L 130-400 E3/mcL OINC) Normal Platelet 144 Performed By: #### [id number] #### [facility] [address] [place] [address] AUTO DIFF Collected: 12/28/2017 Status: F Source: [facility] 8:01 AM [facility] REPOSITORY Order Comment: Order Added by Discern Expert. TYPE CODE TESTS RESULT OUT OF RANGE REFERENCE UNITS LAB 16066527(L 37.0-75.0 % OINC) Normal Neutro Auto 59.3 LAB 56691988(L 20.0-55.0 % OINC) Normal Lymph Auto 28.7 LAB 17851926(L 0.0-10.0 % OINC) Normal [place] Auto 7.0 LAB 67227831(L 0.0-11.0 % OINC) Normal Eos Auto 4.4 LAB 61122032(L 0.0-2.0 % OINC) Normal Basophil Auto 0.6 LAB 53207709(L 1.4-6.5 E3/mcL OINC) Normal Neutro 2.1 Absolute LAB 89642699(L 1.2-3.4 E3/mcL OINC) Low Lymph Absolute 1.0 LAB 38550078(L 0.0-0.7 E3/mcL OINC) Normal [place] Absolute 0.2 LAB 21436227(L 0.0-0.7 E3/mcL OINC) Normal Eos Absolute 0.2 LAB 83218550(L 0.0-0.2 E3/mcL OINC) Normal Basophil 0.0 Absolute Performed By: #### [id number] #### [facility] [address] [place] [address] CMP Collected: 12/28/2017 Status: F Source: [facility] 8:01 AM [facility] REPOSITORY TYPE CODE TESTS RESULT OUT OF RANGE REFERENCE UNITS LAB 18190237(L 70-99 mg/dL OINC) High Glucose Lvl 117 LAB 17706797(L 8.4-10.2 mg/dL OINC) Calcium Normal Lvl 9.2 LAB 78233447(L 136-145 mEq/L OINC) Sodium Normal Lvl 138 LAB 88735557(L 3.5-5.1 mEq/L OINC) Normal Potassium Lvl 3.9 LAB 48659261(L 98-107 mEq/L OINC) Chloride Normal 103 LAB 94507631(L 24.0-30.0 mEq/L OINC) CO2 Normal 24.9 LAB 20355428(L 7-18 mg/dL OINC) BUN Normal 16 LAB 5995523(LO 0.6-1.3 mg/dL INC) Normal Creatinine 1.0 LAB 44563161(L 42-121 Int._Unit/ OINC) L Alk Phos Normal 55 LAB 35181939(L 0.2-1.0 mg/dL OINC) Bili Normal Total 0.8 LAB 57409531(L 3.2-5.0 G/DL OINC) Albumin Normal Lvl 4.5 LAB 29674943(L 6.4-8.3 G/DL OINC) Total Normal Protein 7.1 LAB 61210363(L 10-40 Int._Unit/ OINC) L ALT Normal 17 LAB 61867925(L 10-42 Int._Unit/ OINC) L AST Normal 20 LAB 96474114(L 5.4-30.0 ratio OINC) Normal BUN/Creat Ratio 16.0 LAB 57907801(L 2.0-4.0 G/DL OINC) Globulin Normal 2.6 LAB 16824384(L 1.1-1.9 ratio OINC) A/G Normal Ratio 1.7 Performed By: #### [id number] #### [facility] [address] [place] [address] EGFR Collected: 12/28/2017 Status: F Source: [facility] 8:01 AM [facility] REPOSITORY Order Comment: Order added by Discern Expert. TYPE CODE TESTS RESULT OUT OF RANGE REFERENCE UNITS LAB 53336275(LO mL/min/1.73 INC) m2 Normal eGFR >60 LAB 64660144(LO mL/min/1.73 INC) m2 Normal eGFR AA >60 Performed By: #### [id number] #### [facility] [place] [address] LIPID PROFILE Collected: 12/28/2017 Status: F Source: [place] 8:01 AM [facility] REPOSITORY TYPE CODE TESTS RESULT OUT OF RANGE REFERENCE UNITS LAB 03565432(LO 50-200 mg/dL INC) Normal Chol 130 Result Comment: TOTAL CHOLEESTEROL: <200 NORMAL 200 - 239 BORDERLINE HIGH >240 HIGH LAB 93805604(LOINC) >=41 mg/dL Normal HDL 52 LAB 08513080(LOINC) 0-130 mg/dL Normal LDL 63 Result Comment: <100 OPTIMAL 100-129 NEAR / ABOVE OPTIMAL 130-159 BORDERLINE HIGH 160-189 HIGH >190 VERY HIGH CALC LDL NOT VALID WHEN TRIGLYCERIDE IS >400 MG/DL LAB 26949649(LOINC) 35-150 mg/dL Normal Trig 75 Result Comment: <150 NORMAL 150-199 BORDERLINE HIGH 200-499 HIGH >500 VERY HIGH LAB 55596276(LOINC) Normal VLDL 15 Performed By: #### [id number] #### [facility] [place] [address] PSA TOTAL Collected: 12/28/2017 Status: F Source: [place] 8:01 AM [facility] REPOSITORY TYPE CODE TESTS RESULT OUT OF RANGE REFERENCE UNITS LAB 88605809(LO ng/mL INC) Normal PSA Total 52.45 Result Comment: AGE-SPECIFIC REFERENCE RANGES FOR SERUM PSA REFERENCE RANGE NG/ML AGE ASIANS BLACKS WHITE 40-49 0- 2 0-2 0-2.5 50-59 0- 3 0-4 0-3.5 60-69 0- 4 0-4.5 0-4.5 70-79 0- 5 0-5.5 0-6.5 PSA INCREASES WITH AGE, RACE, AND EJACULATION WITHIN 48 HRS. [facility] VOL24,NO.2, , PG.339 Performed By: #### [id number] #### [facility] [employer] [facility] [place] [address] CT SOFT TISSUE NECK Observed: 08/31/2017 Status: F Source: [facility] W/ CONTRAST 2:03 PM [facility] REPOSITORY Exam Date/Time: 08/31/2017 [...] above. FINAL REPORT Dictated: 08/31/2017 9:00 pm Harpreet Maria MD Signed (Electronic Signature): 08/31/2017 9:00 pm Signed by: Harpreet Maria MD Technologist: NAVEEN SNIDER Collected: 08/27/2017 Status: F Source: [facility] 10:27 AM [facility] REPOSITORY TYPE CODE TESTS RESULT OUT OF RANGE REFERENCE UNITS LAB 65129714(LO 7-18 mg/dL INC) Normal BUN 12 Performed By: #### [id number] #### [facility] [address] [place] [address] EGFR Collected: 08/27/2017 Status: F Source: [facility] 10:27 AM [facility] REPOSITORY Order Comment: Order added by Discern Expert. TYPE CODE TESTS RESULT OUT OF RANGE REFERENCE UNITS LAB 00400829(LO mL/min/1.73 INC) m2 Normal eGFR >60 LAB 93674297(LO mL/min/1.73 INC) m2 Normal eGFR AA >60 Performed By: #### 62665781 #### [facility] [place] [address] CREATININE Collected: 08/27/2017 Status: F Source: [facility] 10:27 AM [facility] REPOSITORY TYPE CODE TESTS RESULT OUT OF RANGE REFERENCE UNITS LAB 2587561(LO 0.6-1.3 mg/dL INC) Normal Creatinine 0.9 Performed By: #### 5638535 #### [facility] [place] [place] [address] HGBA1C Collected: 06/24/2017 Status: F Source: [facility] 10:30 AM [facility] REPOSITORY TYPE CODE TESTS RESULT OUT OF RANGE REFERENCE UNITS LAB 731127205( 4.0-6.3 % LOINC) Normal Hemoglobin A1c 5.9 Performed By: #### [id number] #### [facility] Chemistry Manual Subsection [facility] [place] [address] XR SPINE THORACIC 3 Observed: 06/24/2017 Status: F Source: [facility] 10:22 AM [facility] REPOSITORY Exam Date/Time: 06/24/2017 [...] SEVERITY SOURCE 03/31/2018 Drug No Known Unknown [facility] Allergy/416 Allergies/N85357 Hospital 922638(SNOM 0388(RXNORM) Repository ED CT) Drug/817492 aspirin [facility] 003(SNOMED [facility] CT) System Repository Drug/157009 No Known [facility] 003(SNOMED Allergies [facility] CT) System Repository ENCOUNTERS ENCOUNTERS ADMIT/DISCHARGE ACCOUNT NUMBER ADMITTING ENCOUNTER LOCATION SOURCE CLASS 05/14/2018/05/14/19 [id number] [facility] ding:CD:1320 [employer] System 135101Rpqc: Repository CD:[id number] 04/26/2018 [id number] [facility] ding:CT Repository 04/20/2018 [id number] [facility] ding:CT Repository 04/07/2018/04/07/[id number] ding:SDCRoom Repository : AC15 03/16/2018 [id number] [facility] ding:[facility] Repository IM 03/16/2018/03/16/[id number] ding:[facility] Repository IMRoom: Room 5 03/12/2018 [id number] [facility] ding:MRI Repository 02/25/2018 [id number] [facility] ding:CT Repository 02/19/2018 [id number] [facility] ding:NM Repository 02/12/2018 [id number] [facility] ding:[facility]SPEC Repository 02/09/2018 [id number] Ambulatory [facility] ding:LAB Repository 02/09/2018 [id number] Ambulatory BMSBuilding: [facility] Repository 01/14/2018 [id number] Ambulatory [facility] ding:LAB Repository 12/30/2017/12/31/19 [id number] Ambulatory [address] Urology [facility] Repository ing:Haile ndRoom: Waiting 12/28/2017/12/29/19 [id number] [place], Ambulatory [address] ding:[facility] Repository 12/28/[id number] Repository 12/08/2017 [id number] Ambulatory [facility] ding:[facility] Repository IM 12/08/2017/12/09/19 [id number] Ambulatory [address] ding:[facility] Repository IMRoom: Room 5 10/28/2017/10/29/19 [id number] Ambulatory [address] ding:[facility] Repository IM 09/15/2017/09/16/19 [id number] Ambulatory [address] ding:[facility] Repository IMRoom: Room 5 08/31/2017/09/01/[id number] [place], [address] ding:[facility] Repository 08/27/2017/08/28/[id number] [place], [address] ding:[facility] Repository 08/25/2017/08/26/19 [id number] [facility] [address] [facility] IMRoom: Room 5 07/11/2017/07/12/[id number] Yoniner, [address] ding:CD:1320 [facility] [address]Thbr: Repository CD:[id number] 06/30/2017/06/30/19 [id number] Ambulatory [address] ding:[facility] Repository IMRoom: Room 6 06/24/2017/06/24/19 [id number] Osvaldo, Ambulatory [address] [facility] 06/23/2017/06/23/19 [id number] Ambulatory [address] [facility] IMRoom: Room 5 PAYERS PAYERS ENCOUNTER GUARANTOR PAYER SUBSCRIBER SOURCE 05/14/2018 AMENA E BAYSDOB: Primary AMENA E BAYSDOB: [facility] [id number] [address] [id number] [id number] icy Number: Effective [address] [facility] System [place], Date:2018-05-14 [facility] Repository ID [id number] [address]Szr: Name:CD:[id number] [address] [address]Ryx: [id number], [place] () [id number]: [phone] () [phone] () 04/26/2018 AMENA E [id number] Primary AMENA E BAYSDOB: Jorge [address] Insurance:MEDICARE [id number] [facility] [address]Fiv: Number: Repository [id number] () Date:2018-04-22 04/26/2018 Secondary NOT GIVENUNK Jorge Insurance:SELF PAY [facility] Number: Effective Repository Date:2018-04-22 04/20/2018 AMENA E [id number] Primary AMENA E BAYSDOB: [place] [address] Insurance:MEDICARE [id number], [facility] [address]Jmk: Number: Repository [id number] (HP) Date:2018-04-07 04/20/2018 Secondary AMENA E BAYSDOB: [place] Insurance:MEDICAIDPol [id number] Community icy Number: Hospital [id number] Repository Date:2018-04-07 04/20/2018 Tertiary NOT GIVENUNK Jorge Insurance:SELF PAY [facility] Number: Effective Repository Date:2018-04-07 04/07/2018 AMENA E [id number] Primary AMENA E BAYSDOB: [place] [address] Insurance:MEDICARE [id number], PART A [facility] [place] [address]Rxs: Number: Repository [id number] (HP) Date:2018-03-10 04/07/2018 Secondary AMENA E BAYSDOB: [place] Insurance:MEDICAIDPol [id number] Community icy Number: Hospital [id number] Repository Date:2018-03-10 04/07/2018 Tertiary NOT GIVENUNK Jorge Insurance:SELF PAY Community [facility] Number: Effective Repository Date:2018-03-10 03/16/2018 AMENA E BAYSDOB: Primary AMENA E BAYSDOB: [facility] [id number] Insurance:1500 [id number] MEDICARE [address] [address], PRIMARYPolicy Number: [address] [address]Jlq: Date:2018-03-16 [address]Zxf: 7948-52-01Eezf (HP) Name:CD:[id number] O ()Tel: 000) [address]ZOOYF, 0000000 () [place] [address]XG: 03/16/2018 Secondary AMENA E BAYSDOB: [place] Insurance:1500 [id number] MEDICAID [address] System PRIMARYPolicy Number: [address] Date:2018-03-16 [address]Gey: 5127-74-26Htea Name:[id number] O (HP)Tel: (000) [address], [place] 000-0000 (WP) [address]OJ: 03/16/2018 AMENA E BAYSDOB: Primary AMENA E BAYSDOB: [place] [id number] BOX Insurance:[facility] [id number] Hospital [id number] MEDICARE [address], PRIMARYPolicy Number: [address], [place] [address]Mkw: Date:2018-03-1692905-9895Izf: 9407-33-27Dqnl31plan (HP) Name:CD:[id number] O (HP)Tel: (000) [address]DD, 000-0000 (WP) [place] [address]VT: 03/16/2018 Secondary AMENA E BAYSDOB: [place] Insurance:[facility] [id number] Hospital MEDICAID [address] System PRIMARYPolicy Number: [address], [place] Date:2018-03-16 [address]Zzs: 5125-83-20Zggolan Name:[id number] O (HP)Tel: (000) [address] [place] 000-0000 (WP) [address]KR: 03/12/2018 AMENA E [id number] Primary AMENA E BAYSDOB: [place] [address] Insurance:MEDICARE [id number] [address], PART A [facility] [place] [address]Fgc: Number: Repository [id number] (HP) Date:2018-03-09 03/12/2018 Secondary AMENA E BAYSDOB: [place] Insurance:MEDICAIDPol [id number] [facility] icy Number: [facility] [id number] Repository Date:2018-03-09 03/12/2018 Tertiary NOT GIVENUNK [place] Insurance:SELF PAY [facility] Number: Effective Repository Date:2018-03-09 02/25/2018 AMENA E BAYSPo Primary AMENA E BAYSDOB: [place] Box Insurance:MEDICARE [id number] PART A [facility] [place] [address]Jky: Number: Repository [id number] (HP) Date:2018-02-17 02/25/2018 Secondary AMENA E BAYSDOB: [place] Insurance:MEDICAIDPol [id number] Community icy Number: Hospital [id number] Repository Date:2018-02-17 02/25/2018 Tertiary NOT GIVENUNK [place] Insurance:SELF PAY [facility] Number: Effective Repository Date:2018-02-17 02/19/2018 Amena E BaysPo Primary Amena E BaysDOB: [place] Box Insurance:MEDICARE [id number] A [facility] [place] [address]Nju: Number: Repository [id number] (HP) Date:2018-02-17 02/19/2018 Secondary Amena E BaysDOB: [place] Insurance:MEDICAIDPol [id number] Community icy Number: Hospital [id number] Repository Date:2018-02-17 02/19/2018 Tertiary NOT GIVENUNK [place] Insurance:SELF PAY [facility] Number: Effective Repository Date:2018-02-17 02/12/2018 Amena E BaysPo Primary Amena E BaysDOB: [place] Box Insurance:MEDICARE [id number] [address] PART A [facility] [place] [address]Cqi: Number: Repository [id number] (HP) Date:2018-02-12 02/12/2018 Secondary Amena E BaysDOB: [place] Insurance:MEDICAIDPol [id number] Community icy Number: Hospital [id number] Repository Date:2018-02-12 02/12/2018 Tertiary NOT GIVENUNK [place] Insurance:SELF PAY [facility] Number: Effective Repository Date:2018-02-12 02/09/2018 Amena E BaysPo Primary Amena E BaysDOB: [place] Box Insurance:MEDICARE [id number] [address]Mvn: Number: Repository [id number] (HP) Date:2018-02-09 02/09/2018 Secondary Amena E BaysDOB: [place] Insurance:MEDICAIDPol [id number] Healthy Number: Hospital [id number] Repository Date:2018-02-09 02/09/2018 Tertiary NOT GIVENUNK [place] Insurance:SELF PAY [facility] Number: Effective Repository Date:2018-02-09 02/09/2018 AMENA E BAYSPo Primary AMENA E BAYSDOB: [place] Box Insurance:MEDICARE [id number] [address]Oow: Number: Repository [id number] (HP) Date:2018-02-09 02/09/2018 Secondary AMENA E BAYSDOB: [place] Insurance:MEDICAIDPol [id number] Community icy Number: Hospital [id number] Repository Date:2018-02-09 02/09/2018 Tertiary NOT GIVENUNK [place] Insurance:SELF PAY [facility] Number: Effective Repository Date:2018-02-09 01/14/2018 Amena E BaysPo Primary Amena E BaysDOB: [place] Box Insurance:MEDICARE [id number] [place] [address]Ohg: Number: Repository [id number] (HP) Date:2018-01-14 01/14/2018 Secondary Amena E BaysDOB: [place] Insurance:MEDICAIDPol [id number] Community icy Number: [facility] [id number] Repository Date:2018-01-14 01/14/2018 Tertiary NOT GIVENUNK [place] Insurance:SELF PAY [facility] Number: Effective Repository Date:2018-01-14 12/30/2017 AMENA E BAYSDOB: Primary AMENA E BAYSDOB: [place] [id number] BOX Insurance:[facility] [id number] Hospital [id number] MEDICARE [address], PRIMARYPolicy Number: [address], [place] [id number]: Effective [place] [id number]: Date:2017-12-30 - (HP) 9743-14-42Bxbq ()Tel: (000) Name:CD:[id number] O 000-0000 (WP) [address]MWSCKJS, [place] [address]RI: 12/30/2017 Secondary AMENA E BAYSDOB: [place] Insurance:[facility] [id number] [facility] MEDICAID [address] System PRIMARYPolicy Number: [address], Repository [place] [id number]: Date:2017-12-30 - 1491-42-27Gbei ()Tel: (000) Name:CD:[id number] O 000-0000 () [address], [place] [address]SH: 12/28/2017 AMENA E BAYSDOB: Primary AMENA E BAYSDOB: [place] [id number] BOX Insurance:MedicarePol [id number] Hospital [id number] icy Number: Effective [id number] System [address], Date:2017-12-28 - [address], Repository [place] [id number]: 4685-07-03Jeos [place] [id number]: Name:CD:[id number] BOX (HP) [address]459MNTGFHREOF, [place] ()Tel: 000 [phone]: (WP) [phone] 12/28/2017 AMENA BAYSDOB: Primary AMENA BAYSDOB: [place] [id number] BOX Insurance:MedicarePol [id number] Hospitals [facility] icy Number: BOX Repository [place] [id number]: [id number] [address], Date:Plan Name:[place] [id number]: (HP) A () 12/28/2017 Secondary AMENA BAYSDOB: University Insurance:MedicarePol [id number] Hospitals icy Number: BOX Repository [id number] [address] [place] [address], Date:Plan Name:[facility] [id number]: B () 12/28/2017 Tertiary AMENA BAYSDOB: University Insurance:MedicaidPol [id number] Hospitals icy Number: BOX Repository [id number] [address] [place] [address], Date:Plan ID [id number]: Name:[facility] [address] [place] [address] () [address]AC: 12/08/2017 AMENA E BAYSDOB: Primary AMENA E BAYSDOB: [place] [id number] BOX Insurance:[facility] [id number] [place] [address] MED[id number], [facility]: [address], Repository [place] [id number]: Effective [place] [id number]: Date:2017-12-08 - () 5457-10-90Pktk ()Tel: (000) Name:CD:[id number] O 000-0000 () [address]VBKGXRDXO, [place] [address]VL: 12/08/2017 Secondary AMENA E BAYSDOB: [place] Insurance:[facility] [id number] Hospital MEDICAID [address] System PRIMARYPolicy Number: [address], Repository [place] [id number]: Date:2017-12-08 - 6334-90-97Nksn (HP)Tel: (000) Name:CD:[id number] O 000-0000 (WP) [address], [place] [address]CG: 12/08/2017 AMENA E BAYSDOB: Primary AMENA E BAYSDOB: [place] [id number] BOX Insurance:[facility] [id number] [place] [address] MED[address], PRIMARYPolicy Number: [address], Repository [place] [id number]: Effective [place] [id number]: Date:2017-09-15 (HP) 4389-47-31Ejzb (HP)Tel: (000) Name:CD:[id number] O 000-0000 (WP) [address] [place] [address]KG: 12/08/2017 Secondary AMENA E BAYSDOB: [place] Insurance:[facility] [id number] [facility] MEDICAID BOX [facility] ST RT System PRIMARYPolicy Number: [address], Repository [place] [id number]: Date:2017-09-15 - 7869-88-26Cedm (HP)Tel: (000) Name:CD:[id number] O 000-0000 () [address], [place] [address]JP: 10/28/2017 AMENA E BAYSDOB: Primary AMENA E BAYSDOB: [place] [id number] BOX Insurance:[facility] [id number] [place] [address] MEDIC[address] System [address], PRIMARYPolicy Number: [address], Repository [place] [id number]: Effective [place] [id number]: Date:2017-06-30 (HP) 7029-55-87Szsi (HP)Tel: (000) Name:CD:[id number] O 000-0000 (WP) [address]NOWXLOPQB, [place] [address]AU: 10/28/2017 Secondary AMENA E BAYSDOB: [place] Insurance:[facility] [id number] [facility] MEDICAID [address] System PRIMARYPolicy Number: [address], Repository [place] [id number]: Date:2017-06-30 - 2033-44-76Jsjg (HP)Tel: (000) Name:CD:[id number] O 000-0000 (WP) BOX [facility] [address]JR: 09/15/2017 AMENA E BAYSDOB: Primary AMENA E BAYSDOB: [place] [id number] BOX Insurance:[facility] [id number] [place] [address] MEDICARE [address] [place] [address] RT System [address], PRIMARYPolicy Number: [address], Rep[place] [id number]: Effective [place] [id number]: Date:2017-08-25 - (HP) 6511-18-08Obrm (HP)Tel: (000) Name:CD:[id number] O 000-0000 (WP) [address]RLXRGCSUQ, [place] [address]EJ: 09/15/2017 Secondary AMENA E BAYSDOB: [place] Insurance:[facility] [id number] [facility] MEDICAID BOX [facility] [address] RT System PRIMARYPolicy Number: [address], Repository [place] [id number]: Date:2017-08-25 - 0113-87-30Onum ()Tel: (000) Name:CD:[id number] O 000-0000 (WP) [address], [place] [address]ZF: 08/31/2017 AMENA E BAYSDOB: Primary AMENA E BAYSDOB: [place] [id number] BOX Insurance:MedicarePol [id number] Hospital [id number] icy Number: Effective [id number] System [address], Date:2017-08-25 - [address], Repository [place] [id number]: 6347-85-66Mhzw [place] [id number]: Name:CD:[id number] BOX (HP) 106792EPSLIMZBWX, [place] (HP)Tel: (232) [phone]: (WP) [phone] 08/27/2017 AMENA E BAYSDOB: Primary AMENA E BAYSDOB: [place] [id number] BOX Insurance:MedicarePol [id number] Hospital [id number] icy Number: Effective [address] System [address], Date:2017-08-27 - [address], Repository [place] [id number]: 9354-21-71Knhs [place] [id number]: Name:CD:[id number] BOX (HP) 153813HNJJDFZEPP, [place] (HP)Tel: (138) [phone]: (WP) [phone] 08/27/2017 Secondary AMENA E BAYSDOB: [place] Insurance:MedicaidPol [id number] Hospital icy Number: Effective [address] System Date:2017-08-27 - [address], Repository 7340-89-17Ukud [place] [id number]: Name:CD:[id number] [address] (HP)Tel: (000) [place] 000-0000 (WP) [id number]: 08/25/2017 AMENA E BAYSDOB: Primary AMENA E BAYSDOB: [place] [id number] BOX Insurance:[facility] [id number] Hospital [id number] MEDICARE [address], PRIMARYPolicy Number: [address], Repository [place] [id number]: Effective [place] [phone]: Date:2017-08-25 - (HP) 0898-72-33Fiet (HP)Tel: (000) Name:CD:[id number] O 000-0000 (WP) [address]JFJLEJXJD, [place] [address]GS: 08/25/2017 Secondary AMENA E BAYSDOB: [place] Insurance:[facility] [id number] [facility] MEDICAID B[address] System PRIMARYPolicy Number: [address], Repository Effective [place] [id number]: Date:2017-08-25 - 8410-66-45Esqu (HP)Tel: (000) Name:CD:[id number] O 000-0000 () [address], [place] [address]XF: 07/11/2017 AMENA E BAYSDOB: Primary AMENA E BAYSDOB: [place] [id number] BOX Insurance:MedicarePol [id number] [place] [address] icy Number: Effective [address] System [address], Date:2017-07-11 - [address], [place]ository [place] 5487-64-64[place] [phone]: Name:CD:[id number] [address] [address]Jdc: 912165HJLFGDHSZE, [place] (HP) [phone]: (125) (HP) [phone] (WP) 06/30/2017 AMENA E BAYSDOB: Primary AMENA E BAYSDOB: [place] [id number] BOX Insurance:[facility] [id number] [place] [address] MEDICARE [address] System [address], PRIMARYPolicy Number: [address], Repository [place] [id number]: Effective [place] [id number]: Date:2017-01-28 - (HP) 4943-59-24Lime (HP)Tel: (000) Name:CD:[id number] O 000-0000 (WP) [address]XMVDN, [place] [address]PL: 06/30/2017 Secondary AMENA E BAYSDOB: [place] Insurance:[facility] [id number] Hospital MEDICAID B[address] System PRIMARYPolicy Number: [address], Repository Effective [place] [id number]: Date:2017-01-28 - 3955-60-75Zjsm (HP)Tel: (000) Name:CD:[id number] O 000-0000 (WP) [address] [address]YE: 06/24/2017 AMENA E BAYSDOB: Primary AMENA E BAYSDOB: [place] [id number] BOX Insurance:MedicarePol [id number] Hospital [id number] icy Number: Effective [address] System [address], Date:2017-06-24 - [address], Repository [place] [id number]: 9520-48-93Ycha ID [id number]: Name:CD:[id number] BOX (HP) 662821BQYLADWGOBHOLCOMB, [place] (HP)Tel: (000) [phone]: (WP) [phone] 06/24/2017 Secondary AMENA E BAYSDOB: [place] Insurance:MedicaidPol [id number] Hospital icy Number: Effective [address] System Date:2017-06-24 - [address], Repository 3417-02-57Ntqb [place] [id number]: Name:CD:[id number] E [address] (HP)Tel: (000) [facility] [place] 000-0000 (WP) [id number]: 06/23/2017 AMENA E BAYSDOB: Primary AMENA E BAYSDOB: [place] [id number] BOX Insurance:[facility] [id number] [place] [address] MEDICARE [address] System [address], PRIMARYPolicy Number: [address], Repository [place] [id number]: Effective [place] [id number]: Date:2017-06-23 (HP) 4497-18-33Kzjq (HP)Tel: (000) Name:CD:[id number] O 000-0000 () [address]UYFCQHKUU, [place] [address]RV: 06/23/2017 Secondary AMENA E BAYSDOB: [place] Insurance:[facility] [id number] Hospital MEDICAID BOX [address] System PRIMARYPolicy Number: [address], Repository Effective [place] [id number]: Date:2017-06-23 - 7199-94-59Wsrv ()Tel: (000) Name:CD:[id number] O 000-0000 () [address] [address]KT:
== END ==
LOC: CT 09:07
PROVIDERS: Family Provider Internal Medicine; PCP Internal Medicine; Referring Provider Radiology Radiation Oncology; Visit Provider Radiology Radiation Oncology
DX: C61 Malignant neoplasm of prostate (principal); Z01.818 Encounter for other preprocedural examination
CPT/HCPCS: 36415; 51600; 72193; 82565; 84153; 85025; Q9967

== ENCOUNTER → 2018-04-26 12:24 | Outpatient (CLI) | payer MEDICARE, MEDICAID, SELFPAY ==
[2018-04-07 08:27] VITALS: BMI 22.3
--- NOTE | 2018-04-26 12:28 | CT_ITS ---
STUDY: CT PELVIS WITHOUT CONTRAST REASON FOR EXAM: Male, 72 years old. This is a prostate cancer radiation treatment planning examination. RADIATION DOSAGE (If Supplied By Facility): CTDIvol = ( 24.06 ) mGy, DLP = ( 770.92 ) mGycm TECHNIQUE: Transaxial imaging of the pelvis was performed with oral contrast, and without intravenous administration of contrast material. Individualized dose optimization techniques were used for this CT. COMPARISON: Comparison is made with prior study dated April 20, 2018. FINDINGS: Normal urinary bladder. Stable prostatic enlargement. This causes indentation of the bladder base. Prostatic calcifications. Once again, metallic densities are seen within the prostate. Stable appearance of the pleural density seen between the bladder and rectum. This may represent a small amount of free fluid. Normal visualized small intestine. Normal visualized colon. There is no pelvic fluid. There is no pelvic mass lesion or lymphadenopathy. Normal visualized pelvic arteries. There is a left inguinal hernia containing fat. There are diffuse degenerative changes of the visualized lumbar spine. CT/CT Pelvis w/o Cont/Therapy IMPRESSION: Stable examination. Electronically Signed: Mihai Mott MD at 10:48 EST Tel [phone], Service support ,
--- OUTSIDE RECORDS SUMMARY | 2018-07-29 02:45 | XMS RPT_ITS ---
:1945 Author Organization OHIP Support Name Relationship Address Phone LOIS HUBBARD Unavailable [address] [place] [address] R Unavailable Unavailable Unavailable BAYS, LOIS Unavailable [address] + [address] [place] [address] R Unavailable Unavailable Unavailable BAYS, LOIS Unavailable [address] + [address] [place] [address] R Unavailable Unavailable Unavailable BAYS, LOIS Unavailable [address] + [place] [address] R Unavailable Unavailable Unavailable BAYS, LOIS Unavailable [address] + [place] [address] R Unavailable Unavailable Unavailable BAYS, LOIS Unavailable [address] + [place] [address] R Unavailable Unavailable Unavailable BAYS, LOIS Unavailable [address] + [place] [address] S Unavailable Unavailable Unavailable BAYS, LOIS Unavailable [address] + [place] [address] R Unavailable Unavailable Unavailable BAYS, LOIS Unavailable [address] + [place] [address] S Unavailable Unavailable Unavailable BAYS, LOIS Unavailable [address] + [place] [address] S Unavailable Unavailable Unavailable BAYS, LOIS Unavailable Unavailable + Care Team Providers Name Role Phone Mike Loyd Attending Unavailable Mike Loyd Referring Unavailable Osvaldo, Michaellesham Primary Care Unavailable Mike Loyd Attending Unavailable Mike Loyd Referring Unavailable Osvaldo, Saksham Primary Care Unavailable Barry Turner Attending Unavailable Johnny, Barry Hagen Referring Unavailable Sul[place], Saksham Primary Care Unavailable Ha Cuellar Attending Unavailable Joel Wei Referring Unavailable Mike Loyd Attending Unavailable Mike Loyd [...] Donovan Admitting Unavailable Mike Donovan Attending Unavailable Nikolas Riley Primary Care Unavailable Dr. 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 Community / C61(ICD-10) Hospital Repository 03/11/2018 Unknown Z01.810 - Encounter Ha Cuellar Active [facility] for preprocedural [facility] examination / Repository Z01.810(ICD-10) PROCEDURES PROCEDURES No Procedure Records FoundRESULTS RESULTS Observed: 05/14/2018 Status: F Source: [facility] STREP CONFIRM 1:49 PM [facility] REPOSITORY Final Report: No Beta Hemolytic Streptococci Isolated Performed By: #### CD:[id number] #### REMY Microbiology Subsection [address] [place] [address] POC STREP A Collected: 05/14/2018 Status: F Source: [facility] 1:43 PM [facility] REPOSITORY TYPE CODE TESTS RESULT OUT OF RANGE REFERENCE UNITS LAB CD:[id number] Negative 283(LOINC) Normal Strep A Negative Screen LAB CD:[id number] Positive 315(LOINC) Normal Strep A Positive Scrn Int Ctl Performed By: #### CD:[id number] #### REMY POC Subsection [address] [place] [address] CT PELVIS W/O Observed: 04/26/2018 Status: F Source: [facility] CONT/THERAPY 12:28 PM [facility] RE[facility]ITORY [facility] Imaging Services [address] [place] [address] Pelvis w/o Cont/Therapy MR#: [id number] Acct: [id number] Name: AMENA HUBBARD Rep #: [id number] : 1945 M 72 From: Mihai Mott MD PCP: Nikolas Riley Status: REG CLI Study: CT Pelvis w/o Cont/Therapy Date of Exam: 04/26/18 Exam# [id number] Ordering Dr: Mike Loyd MD STUDY: CT [...] Mihai Mott MD at 10:48 EST Tel [phone], Service support , CC: Nikolas Riley; Mike Loyd MD Leather Cutter: Signed CT PELVIS W/CONT Observed: 04/20/2018 Status: F Source: [facility] THERAPY 11:23 AM [facility] REPOSITORY [facility] Imaging Services [address] [place] [address] [address] Pelvis W/CONT Therapy MR#: [id number] Acct: [id number] Name: AMENA HUBBARD Rep #: [id number] : 1945 M 72 From: Mono Meyer DO PCP: Nikolas Riley Status: REG CLI Study: CT Pelvis W/CONT Therapy Date of Exam: 04/20/18 Exam# [id number] Ordering Dr: Mike Loyd MD STUDY: CT [...] Mono Meyer DO at 23:27 EST Tel [phone], Service support , CC: Nikolas Riley; Mike Loyd MD Leather Cutter: Signed CBC W/DIFF, AUTOMATED Collected: 04/20/2018 Status: F Source: [facility] 9:17 AM [facility] REPOSITORY TYPE CODE TESTS RESULT OUT OF [...] Lymph 0.87 Performed By: #### L100.0100 #### [facility] [address], [address] SERUM CREATININE AND Collected: 04/20/2018 Status: F Source: [place] GFR 9:17 AM [facility] REPOSITORY TYPE CODE TESTS RESULT OUT OF [...] Calc Performed By: #### L501.1105, L501.9940 #### [facility] [address] [place], [address] PSA,TOTAL- DIAGNOSTIC Collected: 04/20/2018 Status: F Source: [place] 9:17 AM [facility] REPOSITORY TYPE CODE TESTS RESULT OUT OF REFERENCE UNITS RANGE LAB L501.9940 0.0-4.0 ng/mL PSA, High DIAGNOSTIC 15.60 Result Comment: This test was performed using the TPSA assay method for the [employer] chemistry system. Values obtained with different assay methods cannot be used interchangably. When changing PSA assays in the course of monitoring a patient, additional sequential testing should be carried out to confirm baseline values. Performed By: #### L501.1105, L501.9940 #### [facility] [address], [address] OPERATIVE REPORT Observed: 04/07/2018 Status: F Source: [place] 10:36 AM [facility] REPOSITORY [facility] Medical Records Department [address] [facility] [address] Operative Report 04/07/18 1032 MR#: [id number] Acct: [id number] Name: AMENA HUBBARD Rep #: [id number] : 1945 72 From: Barry Turner MD PCP: Nikolas Riley Status: [facility] Y Location: [place] [address] Report of Operation Date of Procedure: 04/07/18 [...] into the right spot I dropped the senior climate advisor on the right side then placed another [...] 04/07/2018 Status: F Source: [facility] 10:02 AM [facility] REPOSITORY [facility] Medical Records Department [address] [place] [address] Instructions for Home/Discharge Instructions 04/07/18 1001 MR#: [id number] Acct: [id number] Name: AMENA HUBBARD Rep #: [id number] : 1945 72 From: Barry Turner MD [...] PO DAILY 03/15/16 Fluticasone 0.05% [Flonase Nasal [place]] 1 spray NASAL PRN PRN 03/15/16 Lisinopril [...] 03/12/2018 Status: F Source: J[place] 3:30 PM [facility] REPOSITORY [facility] Imaging Services [address] [place] [address] Pelvis W/WO Contrast MR#: [id number] Acct: [id number] Name: AMENA HUBBARD Rep #: [id number] : 1945 M 72 From: Mono Meyer DO PCP: Nikolas Riley Status: REG CLI Study: Pelvis W/WO Contrast Date of Exam: 03/12/18 Exam# [id number] Ordering Dr: Mike Loyd MD STUDY: MR [...] Mono Meyer DO at 16:37 EST Tel [phone], Service support , CC: Nikolas Riley; Mike Loyd MD Leather Cutter: Signed ABDOMEN/PELVIS WITH Observed: 02/25/2018 Status: F Source: [facility] CONTRAST 2:17 PM [facility] REPOSITORY [facility] Imaging Services [address] [place] [address] Abdomen/Pelvis WITH Contrast MR#: [id number] Acct: [id number] Name: AMENA HUBBARD Rep #: [id number] : 1945 M 72 From: Harpreet Mccoy MD PCP: Nikolas Riley Status: REG CLI Study: Abdomen/Pelvis WITH Contrast Date of Exam: 02/25/18 Exam# [id number] Ordering Dr: Barry Turner MD STUDY: CT [...] , CC: Nikolas Riley; Barry Turner MD Leather Cutter: Signed BONE SCAN WHOLE Observed: 02/19/2018 Status: F Source: [place] BODY 8:49 AM [facility] REPOSITORY [facility] Imaging Services [address] [place], [place] [address] [address] Bone Scan Whole Body MR#: [id number] Acct: [id number] Name: AMENA HUBBARD Rep #: [id number] : 1945 M 72 From: Maxwell Price DO PCP: Nikolas Riley Status: REG CLI Study: Bone Scan Whole Body Date of Exam: 02/19/18 Exam# [id number] Ordering Dr: Barry Turner MD CLINICAL: 72-year-old [...] , CC: Nikolas Riley; Barry Turner MD Leather Cutter: Signed PROSTATE BIOPSY Observed: 02/12/2018 Status: F Source: [facility] BILATERAL 10:59 AM [facility] REPOSITORY Patient: AMENA HUBBARD : 1945 (72/M) Acct Num: [id number] Phys: Johnny RAHMAN,Barry Hagen Unit Num: [id number] Loc: LABSPEC Specimen: [id number] Received: 02/12/182 Spec Type: PROST BX TISSUES [...] Right prostate, mid, core biopsy: Prostatic adenocarcinoma: [place] grade: 5+5=10 Number of cores involved: 2 [...] Left prostate, base, core biopsy: Prostatic adenocarcinoma: [place] grade: 5+3=8 Number of cores involved: 2 out of 2 Proportion of tissue involved: ~75% Perineural invasion: Present. Greatest tumor length: 1.5 cm, discontinuous. Focal high-grade prostatic intraepithelial neoplasia (HGPIN). SJ:tessie 02/16/18 PSA RESULTS 1 Date Time Test Result Flag (u) Normal Range 01/14/18 1432 PSA, DIAGNOSTIC 50.90 H 0.0-4.0 ng/mL 1 This test was performed using the TPSA assay method for the [employer] chemistry system. Values obtained with different assay methods cannot be used interchangably. When changing PSA assays in the course of monitoring a patient, additional sequential testing should be carried out to confirm baseline values. Signed Edward Rivas 02/16/18 <signature on file> Performed By: #### PPROSBIL #### [facility] [address] [place], [place] [address]p[address], [address] 12 LEAD ELECTROCARDIOGRAM Observed: 02/10/2018 Status: F Source: [place] 9:59 AM [facility] REPOSITORY [facility] Cardiovascular Services [address] [place] [address] 12 Lead EKG 02/09/18 1515 MR#: [id number] Acct: [id number] Name: AMENA HUBBARD Rep #: [id number] : 1945 72 From: Ha Cuellar MD [...] ECGs available Confirmed by HA CUELLAR ([id number]), editor index SHREYAS ESPINOSA ([id number]) on 02/10/2018 9:59:09 AM Referred By: Joel Wei Confirmed By:HA CUELLAR 02/10/18 0959 Date Ha Cuellar MD CC: Nikolas Riley; Joel Wei MD Signed CBC-COMPLETE BLOOD CNT Collected: 02/09/2018 Status: F Source: [facility] NO DIFF 3:05 PM [facility] REPOSITORY TYPE CODE TESTS RESULT OUT OF [...] MPV 12.1 Performed By: #### L100.0500 #### [facility] [place], [address] BASIC METABOLIC Collected: 02/09/2018 Status: F Source: [facility] PROFILE (BMP) 3:05 PM [facility] REPOSITORY TYPE CODE TESTS RESULT OUT OF [...] GAP 6 Performed By: #### L500.2500 #### [facility] [address] [facility] [place], [address] PSA,TOTAL- DIAGNOSTIC Collected: 01/14/2018 Status: F Source: [place] 2:32 PM [facility] REPOSITORY TYPE CODE TESTS RESULT OUT OF REFERENCE UNITS RANGE LAB L501.9940 0.0-4.0 ng/mL PSA, High DIAGNOSTIC 50.90 Result Comment: This test was performed using the TPSA assay method for the [employer] chemistry system. Values obtained with different assay methods cannot be used interchangably. When changing PSA assays in the course of monitoring a patient, additional sequential testing should be carried out to confirm baseline values. Performed By: #### L501.9940 #### [facility] [address] [facility] [place], [address] CBC W/ AUTO DIFF Collected: 12/28/2017 Status: F Source: [facility] 8:01 AM [facility] REPOSITORY TYPE CODE TESTS RESULT OUT OF RANGE REFERENCE UNITS LAB 29494616(L 3.6-11.0 E3/mcL OINC) Low WBC 3.5 LAB 13914001(L 3.90-6.10 E6/mcL OINC) Normal RBC 4.43 LAB 37060371(L 13.5-18.0 G/DL OINC) Low Hgb 13.3 LAB 13685119(L 42.0-52.0 % OINC) Low Hct 40.6 LAB 84434615(L 11.5-14.5 % OINC) Normal RDW 12.9 LAB 97924855(L 27.0-31.0 pg OINC) Normal MCH 30.1 LAB 36506340(L 33.0-37.0 G/DL OINC) Low MCHC 32.8 LAB 80014451(L 78.0-100.0 fL OINC) Normal MCV 91.7 LAB 96780484(L 7.4-11.0 fL OINC) Normal MPV 10.5 LAB 09438038(L 130-400 E3/mcL OINC) Normal Platelet 144 Performed By: #### [id number] #### REMY [facility] [address] [place] [address] AUTO DIFF Collected: 12/28/2017 Status: F Source: [facility] 8:01 AM [facility] REPOSITORY Order Comment: Order Added by Discern Expert. TYPE CODE TESTS RESULT OUT OF RANGE REFERENCE UNITS LAB 20738406(L 37.0-75.0 % OINC) Normal Neutro Auto 59.3 LAB 91163120(L 20.0-55.0 % OINC) Normal Lymph Auto 28.7 LAB 33240929(L 0.0-10.0 % OINC) Normal [place] Auto 7.0 LAB 13591078(L 0.0-11.0 % OINC) Normal Eos Auto 4.4 LAB 97119694(L 0.0-2.0 % OINC) Normal Basophil Auto 0.6 LAB 47687533(L 1.4-6.5 E3/mcL OINC) Normal Neutro 2.1 Absolute LAB 96546136(L 1.2-3.4 E3/mcL OINC) Low Lymph Absolute 1.0 LAB 16154736(L 0.0-0.7 E3/mcL OINC) Normal [place] Absolute 0.2 LAB 35662034(L 0.0-0.7 E3/mcL OINC) Normal Eos Absolute 0.2 LAB 69733807(L 0.0-0.2 E3/mcL OINC) Normal Basophil 0.0 Absolute Performed By: #### [id number] #### REMY [facility] [address] [place] [address] CMP Collected: 12/28/2017 Status: F Source: [facility] 8:01 AM [facility] REPOSITORY TYPE CODE TESTS RESULT OUT OF RANGE REFERENCE UNITS LAB 08958717(L 70-99 mg/dL OINC) High Glucose Lvl 117 LAB 93010051(L 8.4-10.2 mg/dL OINC) Calcium Normal Lvl 9.2 LAB 31058836(L 136-145 mEq/L OINC) Sodium Normal Lvl 138 LAB 87172576(L 3.5-5.1 mEq/L OINC) Normal Potassium Lvl 3.9 LAB 52173713(L 98-107 mEq/L OINC) Chloride Normal 103 LAB 09246262(L 24.0-30.0 mEq/L OINC) CO2 Normal 24.9 LAB 50956416(L 7-18 mg/dL OINC) BUN Normal 16 LAB 2041327(LO 0.6-1.3 mg/dL INC) Normal Creatinine 1.0 LAB 98744293(L 42-121 Int._Unit/ OINC) L Alk Phos Normal 55 LAB 85228871(L 0.2-1.0 mg/dL OINC) Bili Normal Total 0.8 LAB 59155090(L 3.2-5.0 G/DL OINC) Albumin Normal Lvl 4.5 LAB 02492781(L 6.4-8.3 G/DL OINC) Total Normal Protein 7.1 LAB 76526709(L 10-40 Int._Unit/ OINC) L ALT Normal 17 LAB 01194981(L 10-42 Int._Unit/ OINC) L AST Normal 20 LAB 92579336(L 5.4-30.0 ratio OINC) Normal BUN/Creat Ratio 16.0 LAB 06683206(L 2.0-4.0 G/DL OINC) Globulin Normal 2.6 LAB 90847314(L 1.1-1.9 ratio OINC) A/G Normal Ratio 1.7 Performed By: #### [id number] #### REMY [employer] [address] [place] [address] EGFR Collected: 12/28/2017 Status: F Source: [facility] 8:01 AM [facility] REPOSITORY Order Comment: Order added by Discern Expert. TYPE CODE TESTS RESULT OUT OF RANGE REFERENCE UNITS LAB 72653796(LO mL/min/1.73 INC) m2 Normal eGFR >60 LAB 07538550(LO mL/min/1.73 INC) m2 Normal eGFR AA >60 Performed By: #### 69354667 #### REMY [facility] [place] [address] LIPID PROFILE Collected: 12/28/2017 Status: F Source: [place] 8:01 AM [facility] REPOSITORY TYPE CODE TESTS RESULT OUT OF RANGE REFERENCE UNITS LAB 16141278(LO 50-200 mg/dL INC) Normal Chol 130 Result Comment: TOTAL CHOLEESTEROL: <200 NORMAL 200 - 239 BORDERLINE HIGH >240 HIGH LAB 11141990(LOINC) >=41 mg/dL Normal HDL 52 LAB 24752743(LOINC) 0-130 mg/dL Normal LDL 63 Result Comment: <100 OPTIMAL 100-129 NEAR / ABOVE OPTIMAL 130-159 BORDERLINE HIGH 160-189 HIGH >190 VERY HIGH CALC LDL NOT VALID WHEN TRIGLYCERIDE IS >400 MG/DL LAB 90679404(LOINC) 35-150 mg/dL Normal Trig 75 Result Comment: <150 NORMAL 150-199 BORDERLINE HIGH 200-499 HIGH >500 VERY HIGH LAB 51800831(LOINC) Normal VLDL 15 Performed By: #### [id number] #### REMY [employer] [facility] [place] [address] PSA TOTAL Collected: 12/28/2017 Status: F Source: [place] 8:01 AM [facility] REPOSITORY TYPE CODE TESTS RESULT OUT OF RANGE REFERENCE UNITS LAB 84721482(LO ng/mL INC) Normal PSA Total 52.45 Result Comment: AGE-SPECIFIC REFERENCE RANGES FOR SERUM PSA REFERENCE RANGE NG/ML AGE ASIANS BLACKS WHITE 40-49 0- 2 0-2 0-2.5 50-59 0- 3 0-4 0-3.5 60-69 0- 4 0-4.5 0-4.5 70-79 0- 5 0-5.5 0-6.5 PSA INCREASES WITH AGE, RACE, AND EJACULATION WITHIN 48 HRS. [facility] VOL24,NO.2, , PG.339 Performed By: #### 22178028 #### REMY [employer] [facility] [place] [address] CT SOFT TISSUE NECK Observed: 08/31/2017 Status: F Source: [facility] W/ CONTRAST 2:03 PM [facility] REPOSITORY Exam Date/Time: 08/31/2017 [...] NAVEEN SNIDER Collected: 08/27/2017 Status: F Source: [facility] 10:27 AM [facility] REPOSITORY TYPE CODE TESTS RESULT OUT OF RANGE REFERENCE UNITS LAB 80561378(LO 7-18 mg/dL INC) Normal BUN 12 Performed By: #### [id number] #### REMY [facility] [address] [place] [address] EGFR Collected: 08/27/2017 Status: F Source: [facility] 10:27 AM [facility] REPOSITORY Order Comment: Order added by Discern Expert. TYPE CODE TESTS RESULT OUT OF RANGE REFERENCE UNITS LAB 26455460(LO mL/min/1.73 INC) m2 Normal eGFR >60 LAB 68485849(LO mL/min/1.73 INC) m2 Normal eGFR AA >60 Performed By: #### 94817938 #### REMY [employer] [facility] [place] [address] CREATININE Collected: 08/27/2017 Status: F Source: [facility] 10:27 AM [facility] REPOSITORY TYPE CODE TESTS RESULT OUT OF RANGE REFERENCE UNITS LAB 5002571(LO 0.6-1.3 mg/dL INC) Normal Creatinine 0.9 Performed By: #### 2138387 #### [facility] [address] [place] [address] HGBA1C Collected: 06/24/2017 Status: F Source: [facility] 10:30 AM [facility] REPOSITORY TYPE CODE TESTS RESULT OUT OF RANGE REFERENCE UNITS LAB 390914739( 4.0-6.3 % LOINC) Normal Hemoglobin A1c 5.9 Performed By: #### [id number] #### REMY Chemistry Manual Subsection [facility] [place] [address] XR SPINE THORACIC 3 Observed: 06/24/2017 Status: F Source: [facility] 10:22 AM [facility] REPOSITORY Exam Date/Time: 06/24/2017 10:41 EST [...] SEVERITY SOURCE 03/31/2018 Drug No Known Unknown [facility] Allergy/416 Allergies/B38589 Hospital 122487(SNOM 0388(RXNORM) Repository ED CT) Drug/164418 aspirin [facility] 003(SNOMED [facility] CT) System Repository Drug/895927 No Known [facility] 003(SNOMED Allergies [facility] CT) System Repository ENCOUNTERS ENCOUNTERS ADMIT/DISCHARGE ACCOUNT NUMBER ADMITTING ENCOUNTER LOCATION SOURCE CLASS 05/14/2018/05/14/19 [id number] [facility] ding:CD:1320 [employer] System 655[address]Pwct: Repository CD:[id number] 04/26/2018 [id number] [facility] ding:CT Repository 04/20/2018 [id number] [facility] ding:CT Repository 04/07/2018/04/07/[id number] ding:SDCRoom Repository : AC15 03/16/2018 [id number] [facility] ding:[facility] Repository IM 03/16/2018/03/16/[id number] ding:[facility] Repository IMRoom: Room 5 03/12/2018 [id number] [facility] ding:MRI Repository 02/25/2018 [id number] [facility] ding:CT Repository 02/19/2018 [id number] [facility] ding:NM Repository 02/12/2018 [id number] [facility] ding:[facility] Repository 02/09/2018 [id number] Ambulatory BMSBuilding: [facility] Repository 02/09/2018 [id number] Ambulatory [facility] ding:LAB Repository 01/14/2018 [id number] Ambulatory [facility] ding:LAB Repository 12/30/2017/12/31/19 [id number] Ambulatory [address] Urology [facility] Repository ing:Haile ndRoom: Waiting 12/28/2017/12/29/19 [id number] [place], Ambulatory [address] ding:[facility] Repository 12/28/[id number] Repository 12/08/[id number] [facility] ding:[facility] Repository IM 12/08/2017/12/09/19 [id number] Ambulatory [address] ding:[facility] Repository IMRoom: Room 5 10/28/2017/10/29/19 [id number] Ambulatory [address] ding:[facility] Repository IM 09/15/2017/09/16/19 [id number] Ambulatory [address] ding:[facility] Repository IMRoom: Room 5 08/31/2017/09/01/[id number] [place], [address] ding:[facility] Repository 08/27/2017/08/28/[id number] [place], [address] ding:[facility] Repository 08/25/2017/08/26/19 [id number] [facility] [address] [facility] IMRoom: Room 5 07/11/2017/07/12/[id number] Yon[place], Ambulatory [address] ding:CD:1320 [facility] [address]Pvqm: Repository CD:[id number] 3 06/30/2017/06/30/19 [id number] Ambulatory [address] ding:[facility] Repository IMRoom: Room 6 06/24/2017/06/24/19 [id number] Osvaldo, Ambulatory [address] [facility] Repository 06/23/2017/06/23/19 [id number] Ambulatory [address] [facility] IMRoom: Room 5 PAYERS PAYERS ENCOUNTER GUARANTOR PAYER SUBSCRIBER SOURCE 05/14/2018 AMENA E BAYSDOB: Primary AMENA E BAYSDOB: [facility] [id number] BOX [place] [place] [id number] [id number] icy Number: Effective [address] [facility] System [place], Date:2018-05-14 [facility] [place] Repository [place] [id number] [place] [address]Jpz: Name:CD:[id number] [address] [address]Bsh: [id number], [place] () [id number]: ([phone] () [phone] () 04/26/2018 AMENA E [id number] Primary AMENA E BAYSDOB: Jorge [address] Insurance:MEDICARE [id number] [facility] [address]Ukp: Number: Repository [id number] () Date:2018-04-22 04/26/2018 Secondary NOT GIVENUNK Jorge Insurance:SELF PAY [facility] Number: Effective Repository Date:2018-04-22 04/20/2018 AMENA E [id number] Primary AMENA E BAYSDOB: [place] [address] Insurance:MEDICARE [id number], [facility] A [facility] [address]Nde: Number: Repository [id number] (HP) Date:2018-04-07 04/20/2018 Secondary AMENA E BAYSDOB: [place] Insurance:MEDICAIDPol [id number] Community icy Number: Hospital [id number] Repository Date:2018-04-07 04/20/2018 Tertiary NOT GIVENUNK Jorge Insurance:SELF PAY Community [facility] Number: Effective Repository Date:2018-04-07 04/07/2018 AMENA E [id number] Primary AMENA E BAYSDOB: [place] [address] Insurance:MEDICARE [id number], PART A [facility] [place] [address]Ale: Number: Repository [id number] (HP) Date:2018-03-10 04/07/2018 Secondary AMENA E BAYSDOB: [place] Insurance:MEDICAIDPol [id number] Community icy Number: Hospital [id number] Repository Date:2018-03-10 04/07/2018 Tertiary NOT GIVENUNK Jorge Insurance:SELF PAY Community [facility] Number: Effective Repository Date:2018-03-10 03/16/2018 AMENA E BAYSDOB: Primary AMENA E BAYSDOB: [facility] [id number] [address]OX Insurance:1500 [id number] Medical [facility] [id number] MEDICARE [address] System [place], PRIMARYPolicy Number: [place], [place] [address]Wwg: Date:2018-03-16 [address]Jkx: [id number] (HP) Name:CD:[id number] O ()Tel: 000) [address], [address] () [place] [address]BH: 03/16/2018 Secondary AMENA E BAYSDOB: [facility] Insurance:1500 [id number] Medical Center MEDICAID [address] System PRIMARYPolicy Number: [place], Repository Effective [place] Date:2018-03-16 [address]Ezu: [id number] Name:CD:[id number] O (HP)Tel: (000) [address] [phone] (WP) [address]LY: 03/16/2018 AMENA E BAYSDOB: Primary AMENA E BAYSDOB: [facility] [id number] [address]OX Insurance:[facility] [id number] Medical Center [address] RT MEDICARE [address] [place], PRIMARYPolicy Number: [place], [place] [address]Hdr: Date:2018-03-1680521-3530Ukd: [id number] (HP) Name:[id number] O (HP)Tel: (000) [address], 000-0000 (WP) [place] [address]QY: 03/16/2018 Secondary AMENA E BAYSDOB: [place] Insurance:[facility] [id number] MEDICAID [address] System PRIMARYPolicy Number: [place], Repository [place] Date:2018-03-16 [address]Ifb: [id number] Name:[id number] O (HP)Tel: (000) [address] [place] [place] 000-0000 (WP) [address]LC: 03/12/2018 AMENA E [id number] Primary AMENA E BAYSDOB: [place] [address] Insurance:MEDICARE [id number] [address], PART A [facility] [place] [address]Atg: Number: Repository [id number] (HP) Date:2018-03-09 03/12/2018 Secondary AMENA E BAYSDOB: [place] Insurance:MEDICAIDPol [id number] [facility] icy Number: [facility] [id number] Repository Date:2018-03-09 03/12/2018 Tertiary NOT GIVENUNK [place] Insurance:SELF PAY [facility]: Effective Repository Date:2018-03-09 02/25/2018 AMENA E BAYSPo Primary AMENA E BAYSDOB: [place] Box Insurance:MEDICARE [id number] PART A [facility] [place] [address]Lku: Number: Repository [id number] (HP) Date:2018-02-17 02/25/2018 Secondary AMENA E BAYSDOB: [place] Insurance:MEDICAIDPol [id number] Community icy Number: Hospital [id number] Repository Date:2018-02-17 02/25/2018 Tertiary NOT GIVENUNK [place] Insurance:SELF PAY [facility] Number: Effective Repository Date:2018-02-17 02/19/2018 Amena E BaysPo Primary Amena E BaysDOB: [place] Box Insurance:MEDICARE [id number] A [facility] [place] [address]Ass: Number: Repository [id number] (HP) Date:2018-02-17 02/19/2018 Secondary Amena E BaysDOB: [place] Insurance:MEDICAIDPol [id number] Community icy Number: Hospital [id number] Repository Date:2018-02-17 02/19/2018 Tertiary NOT GIVENUNK [place] Insurance:SELF PAY [facility] Number: Effective Repository Date:2018-02-17 02/12/2018 Amena E BaysPo Primary Amena E BaysDOB: [place] Box Insurance:MEDICARE [id number] [address] PART A [facility] [place] [address]Qqx: Number: Repository [id number] (HP) Date:2018-02-12 02/12/2018 Secondary Amena E BaysDOB: [place] Insurance:MEDICAIDPol [id number] Community icy Number: Hospital [id number] Repository Date:2018-02-12 02/12/2018 Tertiary NOT GIVENUNK [place] Insurance:SELF PAY [facility] Number: Effective Repository Date:2018-02-12 02/09/2018 AMENA E BAYSPo Primary AMENA E BAYSDOB: [place] Box Insurance:MEDICARE [id number] [address]Sxx: Number: Repository [id number] (HP) Date:2018-02-09 02/09/2018 Secondary AMENA E BAYSDOB: [place] Insurance:MEDICAIDPol [id number] [place] Number: Hospital [id number] Repository Date:2018-02-09 02/09/2018 Tertiary NOT GIVENUNK [place] Insurance:SELF PAY [facility] Number: Effective Repository Date:2018-02-09 02/09/2018 Amena E BaysPo Primary Amena E BaysDOB: [place] Box Insurance:MEDICARE [id number] [address]Btg: Number: Repository [id number] (HP) Date:2018-02-09 02/09/2018 Secondary Amena E BaysDOB: [place] Insurance:MEDICAIDPol [id number] Community icy Number: Hospital [id number] Repository Date:2018-02-09 02/09/2018 Tertiary NOT GIVENUNK [place] Insurance:SELF PAY [facility] Number: Effective Repository Date:2018-02-09 01/14/2018 Amena E BaysPo Primary Amena E BaysDOB: [place] Box Insurance:MEDICARE [id number] [place] [address]Ynn: Number: Repository [id number] (HP) Date:2018-01-14 01/14/2018 Secondary Amena E BaysDOB: [place] Insurance:MEDICAIDPol [id number] Community icy Number: [facility] [id number] Repository Date:2018-01-14 01/14/2018 Tertiary NOT GIVENUNK [place] Insurance:SELF PAY [facility] Number: Effective Repository Date:2018-01-14 12/30/2017 AMENA E BAYSDOB: Primary AMENA E BAYSDOB: [facility] [id number] BOX Insurance:[facility] [id number] Medical Center [id number] MEDICARE [address] [place], PRIMARYPolicy Number: [place], Rep[place] [id number]: Effective [place] [id number]: Date:2017-12-30 - (HP) [id number] ()Tel: (000) Name:CD:[id number] O 000-0000 (WP) [address], [place] [address]NG: 12/30/2017 Secondary AMENA E BAYSDOB: [place] Insurance:[facility] [id number] [facility] MEDICAID [address] System PRIMARYPolicy Number: [address], Repository [place] [id number]: Date:2017-12-30 - 0729-66-98Qfow ()Tel: (000) Name:CD:[id number] O 000-0000 () [address] [address]CM: 12/28/2017 AMENA E BAYSDOB: Primary AMENA E BAYSDOB: [facility] [id number] BOX Insurance:MedicarePol [id number] Medical Center [id number] RT icy Number: Effective [id number] System [place], Date:2017-12-28 - [place], Repository [place] [id number]: 2843-51-35Mcun [place] [id number]: Name:CD:[id number] BOX (HP) 962948QRKRZGCQVP, [place] ()Tel: 000 [phone]: (WP) [phone] 12/28/2017 AMENA BAYSDOB: Primary AMENA BAYSDOB: [facility] [id number] BOX Insurance:MedicarePol [id number] [facility] icy Number: BOX Repository [place] [id number]: [id number] [address], Date:Plan Name:[place] [id number]: (HP) A () 12/28/2017 Secondary AMENA BAYSDOB: [facility] Insurance:MedicarePol [id number] Hospitals icy Number: BOX Repository [id number] [address] [place] [address], Date:Plan Name:[facility] [id number]: B () 12/28/2017 Tertiary AMENA BAYSDOB: University Insurance:MedicaidPol [id number] Hospitals icy Number: BOX Repository [id number] [address] [place] [address], Date:Plan [place] [id number]: Name:[facility] [address] [place] [address] () [address]TM: 12/08/2017 AMENA E BAYSDOB: Primary AMENA E BAYSDOB: [place] [id number] BOX Insurance:[facility] [id number] [address] MED[address] [place] [place], Rep[place] [id number]: Effective [place] [id number]: Date:2017-12-08 - () 0631-00-41Tpoo ()Tel: (000) Name:CD:[id number] O 000-0000 () [address] [address]KKFF[place], [place] [address]AW: 12/08/2017 Secondary AMENA E BAYSDOB: [place] Insurance:[facility] [id number] Medical Center MEDICAID [address] System PRIMARYPolicy Number: [place], Repository [place] [id number]: Date:2017-12-08 - 5159-29-48Fpro (HP)Tel: (000) Name:CD:[id number] O 000-0000 (WP) [address], [place] [address]SL: 12/08/2017 AMENA E BAYSDOB: Primary AMENA E BAYSDOB: [place] [id number] BOX Insurance:[facility] [id number] [place] [address] MED[address] [place], PRIMARYPolicy Number: [place], Repository [place] [id number]: Effective [place] [id number]: Date:2017-09-15 (HP) 9619-62-14Voru (HP)Tel: (000) Name:[id number] O 000-0000 (WP) [address] [place] [address]JG: 12/08/2017 Secondary AMENA E BAYSDOB: [place] Insurance:[facility] [id number] [facility] MED[facility]ID BOX [facility] ST RT System PRIMARYPolicy Number: [place], Repository [place] [id number]: Date:2017-09-15 - 0340-21-80Bslb (HP)Tel: (000) Name:CD:[id number] O 000-0000 () [address], [place] [address]LJ: 10/28/2017 AMENA E BAYSDOB: Primary AMENA E BAYSDOB: [place] [id number] BOX Insurance:[facility] [id number] [place] [address] MED[address] System [place], PRIMARYPolicy Number: [place], Repository [place] [id number]: [place] [id number]: Date:2017-06-30 (HP) 7246-68-50Wrcd (HP)Tel: (000) Name:CD:[id number] O 000-0000 (WP) [address]UTPQZWJGX, [place] [address]IO: 10/28/2017 Secondary AMENA E BAYSDOB: [place] Insurance:[facility] [id number] [facility] MEDICAID B[address] System PRIMARYPolicy Number: [place], Repository [place] [id number]: Date:2017-06-30 - 3482-53-36Zgdk (HP)Tel: (000) Name:CD:[id number] O 000-0000 (WP) BOX [facility] [address]WG: 09/15/2017 AMENA E BAYSDOB: Primary AMENA E BAYSDOB: [place] [id number] BOX Insurance:[facility] [id number] V[place] [address] MEDICARE [address] [place] [address] RT System [address], PRIMARYPolicy Number: [place], Repository [place] [id number]: Effective [place] [id number]: Date:2017-08-25 - (HP) 4837-42-56Nqth (HP)Tel: (000) Name:CD:[id number] O 000-0000 (WP) [address] [address]OP[place]NL, [place] [address]QN: 09/15/2017 Secondary AMENA E BAYSDOB: [place] Insurance:[facility] [id number] [facility] MEDICAID BOX [facility] [address] RT System PRIMARYPolicy Number: [address], Repository [place] [id number]: Date:2017-08-25 - 6567-34-33Btfx ()Tel: (000) Name:[id number] O 000-0000 (WP) [address], [place] [address]LJ: 08/31/2017 AMENA E BAYSDOB: Primary AMENA E BAYSDOB: [facility] [id number] BOX Insurance:MedicarePol [id number] Medical Center [id number] icy Number: Effective [id number] System [place], Date:2017-08-25 - [place], Repository [place] [id number]: 7211-29-74Vfmz [place] [id number]: Name:CD:[id number] BOX (HP) 327855GHRSEEXDRB, [place] (HP)Tel: (852) [phone]: (WP) [phone] 08/27/2017 AMENA E BAYSDOB: Primary AMENA E BAYSDOB: [facility] [id number] BOX Insurance:MedicarePol [id number] Medical Center [id number] RT icy Number: Effective [address] System [place], Date:2017-08-27 - [place], Repository [place] [id number]: 3079-88-93Lhzc [place] [id number]: Name:CD:[id number] BOX (HP) 045875GGJILOCCLS, [place] (HP)Tel: (301) [phone]: (WP) [phone] 08/27/2017 Secondary AMENA E BAYSDOB: [place] Insurance:MedicaidPol [id number] Medical Center icy Number: Effective [address] System Date:2017-08-27 - [place], Repository 4829-58-24Qhpd [place] [id number]: Name:CD:[id number] [address] (HP)Tel: (000) [place] 000-0000 (WP) [id number]: 08/25/2017 AMENA E BAYSDOB: Primary AMENA E BAYSDOB: [place] [id number] BOX Insurance:[facility] [id number] Medical Center [id number] RT MEDICARE [address] System [place], PRIMARYPolicy Number: [place], Repository [place] [id number]: Effective [place] [id number]: Date:2017-08-25 - (HP) 2090-77-82Avgu (HP)Tel: (000) Name:CD:[id number] O 000-0000 (WP) [address], [place] [address]MM: 08/25/2017 Secondary AMENA E BAYSDOB: [place] Insurance:[facility] [id number] [facility] MEDICAID B[address] RT System PRIMARYPolicy Number: [place], Repository [place] [id number]: Date:2017-08-25 - 3764-26-15Nugi (HP)Tel: (000) Name:CD:[id number] O 000-0000 () [address] [address]OV: 07/11/2017 AMENA E BAYSDOB: Primary AMENA E BAYSDOB: [facility] [id number] BOX Insurance:MedicarePol [id number] Ville [address] icy Number: Effective [id number] System [place], Date:2017-07-11 - [place], Repository [place] 0847-27-30[place] [address]Pcg: Name:CD:[id number] [address] [address]Csi: 125272MHICXOEBML, [place] (HP) [phone]: (483) (HP) [phone] (WP) 06/30/2017 AMENA E BAYSDOB: Primary AMENA E BAYSDOB: [place] [id number] BOX Insurance:[facility] [id number] V[place] [address] MEDIC[address] System [place], PRIMARYPolicy Number: [place], Repository [place] [id number]: Effective [place] [id number]: Date:2017-01-28 - (HP) 0520-15-48Stxk (HP)Tel: (000) Name:CD:[id number] O 000-0000 (WP) [address] [address]WJSHOYCGM, [place] [address]DO: 06/30/2017 Secondary AMENA E BAYSDOB: [place] Insurance:[facility] [id number] Medical Center MEDICAID [address] System PRIMARYPolicy Number: [place], Repository [place] [id number]: Date:2017-01-28 - 7936-02-53Vgcf (HP)Tel: (000) Name:CD:[id number] O 000-0000 (WP) [address] [address]FP: 06/24/2017 AMENA E BAYSDOB: Primary AMENA E BAYSDOB: [place] [id number] BOX Insurance:MedicarePol [id number] Medical Center [id number] RT icy Number: Effective [address] System [place], Date:2017-06-24 - [place], Repository [place] [id number]: [id number] [place] [id number]: Name:CD:[id number] BOX (HP) 585850IDTGPSLOIHLITTLE FALLS, [place] (HP)Tel: (000) [phone]: (WP) [phone] 06/24/2017 Secondary AMENA E BAYSDOB: [place] Insurance:MedicaidPol [id number] Medical Center icy Number: Effective [address] System Date:2017-06-24 - [place], Repository 4592-19-56Fjot [place] [id number]: Name:CD:[id number] [address] (HP)Tel: (000) [facility] [place] 000-0000 (WP) [id number]: 06/23/2017 AMENA E BAYSDOB: Primary AMENA E BAYSDOB: [place] [id number] BOX Insurance:[facility] [id number] Ville [address] MEDICARE [address], PRIMARYPolicy Number: [address], Repository [place] [id number]: Effective [place] [id number]: Date:2017-06-23 (HP) 2133-25-50Qfwq (HP)Tel: (000) Name:CD:[id number] O 000-0000 () [address]MKZRGQSHW, [place] [address]GD: 06/23/2017 Secondary AMENA E BAYSDOB: [place] Insurance:[facility] [id number] Medical Center MEDICAID [address] System PRIMARYPolicy Number: [address], Repository Effective [place] [id number]: Date:2017-06-23 - 4812-87-95Zzke ()Tel: (000) Name:CD:[id number] O 000-0000 () [address] [address]OF:
== END ==
PROVIDERS: Family Provider Internal Medicine; PCP Internal Medicine; Referring Provider Radiology Radiation Oncology; Visit Provider Radiology Radiation Oncology
DX: C61 Malignant neoplasm of prostate (principal)
CPT/HCPCS: 51600; 72192

== ENCOUNTER → 2022-09-25 | Outpatient (CLI) | payer MEDICARE, MEDICAID, SELFPAY ==
--- NOTE | 2022-09-25 07:19 | CT_ITS ---
STUDY: CT ABDOMEN AND PELVIS WITH AND WITHOUT CONTRAST REASON FOR EXAM: Male, 76 years old. Gross hematuria. RADIATION DOSAGE (If Supplied By Facility): CTDIvol = ( 16.06 ) mGy, DLP = ( 1842.91 ) mGycm TECHNIQUE: Transaxial images were obtained from the dome of the diaphragm to the symphysis pubis without oral contrast. IV 100mL Isovue-300 was administered. Sagittal and coronal images were reconstructed. Individualized dose optimization techniques were used for this CT. COMPARISON: CT of the pelvis, April 26, 2018. FINDINGS: The visualized lung bases are unremarkable. The visualized portions of the heart are within normal limits. Normal liver. Normal gallbladder and extrahepatic biliary system. There are multiple benign calcified granulomata of the spleen. Normal pancreas. Normal bilateral adrenal glands. Normal right kidney. Normal left kidney. Normal visualized ureters. Normal visualized stomach. Normal small intestine. Normal colon. The appendix is visualized and appears normal. There is diffuse atherosclerotic calcification of the abdominal aorta, without a demonstrated aneurysm. Normal inferior vena cava. Normal retroperitoneum. Normal urinary bladder. Prostate is enlarged and originates into the bladder floor. There are surgical clips in the prostate. No pelvic lymphadenopathy. No free air or free fluid is seen within the peritoneal cavity. Large left inguinal hernia of omental fat. Degenerative changes of the lumbar spine without lytic or blastic lesions. CT/CT Abd/Pelvis W/WO Contrast IMPRESSION: 1. No evidence of renal, ureteral or urinary bladder abnormality. 2. Enlarged prostate. 3. Large left inguinal hernia of omental fat. 4. Calcified splenic granulomata. Electronically Signed: Mono Meyer DO at 20:22 EDT ,
[2022-09-25 07:51] LABS: CREATININE FINGERSTICK < 0.9 mg/dL (0.70-1.30); EGFR FINGERSTICK > 60.0000 mL/min (>60)
== END | disposition home or self-care (01) ==
LOC: CT 07:11
PROVIDERS: PCP Physician Assistant Medical; Referring Provider Urology; Visit Provider Urology
DX: R31.0 Gross hematuria (principal)
CPT/HCPCS: 74178; Q9967

== ENCOUNTER 2023-08-12 11:34 | Day surgery (SDC) | payer MEDICARE, SELFPAY ==
--- NOTE | 2023-08-05 08:27 | EKG12_ITS ---
Test Reason : PRE-OP Blood Pressure : / mmHG Vent. Rate : 080 BPM Atrial Rate : 080 BPM P-R Int : 140 ms QRS Dur : 090 ms QT Int : 368 ms P-R-T Axes : 055 034 059 degrees QTc Int : 424 ms Sinus rhythm with Premature atrial complexes Otherwise normal ECG Confirmed by ARON RAHMAN, MARISOL ([id number]), commissioning editor BRENDA FERNANDEZ ([id number]) on 08/05/2023 9:43:57 AM Referred By: Barry Turner Confirmed By:MARISOL SHARP MD
[2023-08-05 09:28] LABS: Hematocrit 39.2 % (40-54); Hemoglobin 12.6 g/dL (13.0-16.5); Mean Corp Hgb Conc 32.1 g/dL (32-36); Mean Corpuscular Hgb 30.1 pg (27.0-32.0); Mean Corpuscular Volume 93.8 fL (80-94); Mean Platelet Vol. 11.9 fl (6.2-12.0); Platelet Count 197 K/mm3 (150-450); RBC Distribution Width CV 12.2 % (11.6-14.6); RBC Distribution Width SD 42.3 fl (35.1-43.9); Red Blood Count 4.18 M/mm3 (4.6-6.2); White Blood Count 8.1 K/mm3 (4.4-11.0)
[2023-08-12 12:19] VITALS: BP 143/50; PULSE 67; RESP 16; TEMP 36.1; O2SAT 99; BMI 23.1
[2023-08-12] MEDS: Lactated Ringers 1,000 ML 15 ML IV (12:31)
[2023-08-12] MEDS: Cefazolin 2 GM in 0.9% Normal Saline (100mL Bag) 100 ML IV (14:07)
--- NOTE | 2023-08-12 14:29 | DCINST_ITS ---
Discharge Instructions Diet Discharge Diet: No restrictions Activity Discharge Activity: Return to Normal Activity and May Not Drive (while taking narcotic pain medications.) Dressing / Incision Call your doctor if you observe: Fever of 101 or Higher Follow Up Care Please Follow Up With: Barry Car MD When: Call [phone] for an appointment Test Results: Test results from this visit will be discussed in further detail at your follow- up appointment, if applicable. Discharge Plan Admission Primary Reason for Your Visit: Cystoscopy Attending Provider: Barry Car Primary Care Provider: Belén Montoya Discharge Orders/Prescriptions Prescriptions: New ciprofloxacin HCl [Cipro] 500 mg tablet 500 mg PO BID Qty: 6 0RF Continued amlodipine 5 MG tablet 5 mg PO DAILY Patient Comments: to treat high blood pressure famotidine [Pepcid AC] 10 MG tablet 20 mg PO QHS Patient Comments: treat ulcers, gastroesophageal reflux disease (GERD) atorvastatin 10 MG tablet 10 mg PO DAILY Patient Comments: cholesterol lowering med lisinopril 20 MG tablet 20 mg PO DAILY Patient Comments: treat high blood pressure aspirin 325 MG tablet 162.5 mg PO DAILY@0800 Hold Instructions: FOR SURGERY PER DR CAR INSTRUCTIONS Patient Comments: heart health tamsulosin 0.4 MG capsule 0.8 mg PO DAILY Patient Comments: treat urinary retention fluticasone propionate 1 SPRAY spray,suspension 1 spray NASAL PRN PRN (Reason: Allergies) Patient Comments: treat seasonal allergies or asthma Other Ambulatory Orders: 12 Lead EKG (Routine) Timeframe: 20230805 Location: None Selected Ordered By: Dr. Salvador Morales Referrals / Follow Up: Belén Montoya PA [Primary Care Provider] - Disposition Disposition (needs filled in before D/C Order can be placed): Home, Self Care
--- NOTE | 2023-08-12 14:29 | PCM.HP.STD ---
HPI - General General Date of Service: 08/12/23 Chief Complaint: Intermittent hematuria HPI Narrative AMENA HUBBARD, is a 77 M who presents for workup for intermittent gross hematuria [facility] Medical History (Updated 08/04/23 @ 15:54 by Radha Pacheco) Alcohol use Bladder disease Cancer Chronic cough Gastric reflux High cholesterol History of stress test Hypertension Injury of back Prostate disease Smoker Wears contact lenses Wears dentures Wears hearing aid Home Medications amlodipine 5 mg tablet 5 mg PO DAILY 03/15/16 [History Last Taken 08/12/23 08:00] aspirin 325 mg tablet,delayed release 162.5 mg PO DAILY@0800 03/15/16 [History Last Taken 07/30/23] atorvastatin 10 mg tablet 10 mg PO DAILY 03/15/16 [History Last Taken 03/14/16] famotidine 10 mg tablet (Pepcid AC) 20 mg PO QHS 03/15/16 [History Last Taken 03/15/16] fluticasone propionate 50 mcg/actuation nasal spray,suspension 1 spray PRN PRN Allergies 03/15/16 [History Last Taken 03/15/16] lisinopril 20 mg tablet 20 mg PO DAILY 03/15/16 [History Last Taken 08/12/23 08:00] tamsulosin 0.4 mg capsule 0.8 mg PO DAILY 03/15/16 [History Last Taken 03/15/16] ciprofloxacin HCl 500 mg tablet (Cipro) 500 mg PO BID #6 tabs 08/12/23 [Rx Last Taken Unknown] Allergy/AdvReac Type Severity Reaction Status Date / Time No Known Allergies Allergy Verified 08/12/23 12:17 Surgical History (Updated 08/04/23 @ 15:15 by Radha Pacheco) History of colonoscopy History of spinal surgery Social History Smoking Status: Current every day smoker tobacco type: cigarettes Vital Signs Vital Signs Vital Signs: 08/12/23 12:19 08/12/23 12:19 Temperature 97 F L Temperature Source Temporal Pulse Rate 67 Respiratory Rate 16 Respiratory Pattern Normal Blood Pressure 143/50 H Blood Pressure Mean 81 Blood Pressure Source Monitor Blood Pressure Position Semi-Fowlers Blood Pressure Location Left Arm Pulse Ox 99 Oxygen Delivery Method Room Air Weight Weight: 71.214 kg Body Mass Index (BMI) 23.1 Results Lab / Micro Data 08/05/23 08:37
--- NOTE | 2023-08-12 14:30 | PCM.OPRPT ---
Report of Operation Date of Procedure: 08/12/23 Pre-Operative Diagnosis: Intermittent gross hematuria Post-Operative Diagnosis: The same Surgery/Procedure Performed:: Gross hematuria cystoscopy and bilateral pyelograms Description of Surgical Findings:: Patient was taken back to the operating room at this with induction of anesthesia he was placed in dorsolithotomy position. Penis and testicles were prepped and draped in usual sterile fashion went into the bladder with a 21 Turkmen rigid cystourethroscope the entire length the urethra was normal free of any scar tissue or problems sphincter was intact the prostate slightly enlarged prostate inside the bladder and inspected the bladder there was no tumors or stones within the bladder slight trabeculation of the bladder slight irritable area irritation cystitis within the bladder, we then did a retrograde pyelograms and cannulated the left ureteral orifice that a retrograde pyelogram right ureter orifice never did a retrograde pyelogram both pyelograms are completely normal no filling defect normalities were seen patient. 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 Surgeon: Barry Turner Type of Anesthesia: General Drains: none Estimated Blood Loss (mL): 0 Admit VTE Documentation VTE Present on Admission: No VTE Mechan Device Prophylaxis: SCD's VTE Pharm Prophylaxis ordered?: No
[2023-08-12 14:35] VITALS: BP 109/48; BP 143/50; PULSE 74; RESP 16; TEMP 36.8; O2SAT 98
[2023-08-12 14:40] VITALS: BP 112/50; BP 143/50; PULSE 71; RESP 16; O2SAT 95
[2023-08-12 14:45] VITALS: BP 110/50; BP 143/50; PULSE 69; RESP 16; O2SAT 94
[2023-08-12 15:00] VITALS: BP 143/50; PULSE 67; RESP 16; TEMP 36.6; O2SAT 98
[2023-08-12 15:33] VITALS: BP 136/53; BP 143/50; PULSE 64; RESP 16; TEMP 36.7; O2SAT 96
== END 2023-08-12 15:50 | disposition home or self-care (01) ==
LOC: SDC 11:36 → AC 11:38
PROVIDERS: Anesthesiology; PCP Physician Assistant Medical; Referring Provider Urology; Visit Provider Urology
PROC: 0TBB8ZX Excision of Bladder, Via Natural or Artificial Opening Endoscopic, Diagnostic (ICD-10-PCS; CPT 52005; principal; 2023-08-12 13:35)
DX: R31.0 Gross hematuria (principal); Z79.82 Long term (current) use of aspirin; F17.210 Nicotine dependence, cigarettes, uncomplicated; E78.00 Pure hypercholesterolemia, unspecified; I10 Essential (primary) hypertension; R05.3 Chronic cough; K21.9 Gastro-esophageal reflux disease without esophagitis
CPT/HCPCS: 52005; 00910; 36415; 76000; 85027; 93005; J7120; C1769; J2405

== ENCOUNTER 2024-03-21 08:58 | Emergency (ER) | payer MEDICARE, SELFPAY ==
[2024-03-21 08:59] VITALS: BP 158/63; PULSE 95; RESP 16; TEMP 36.4; O2SAT 100; BMI 25.1
[2024-03-21 09:45] LABS: Absolute Lymphocyte Count 0.62 X10^3/uL (0.83-4.51); Absolute Neutrophil Count 5.3 X10^3/uL (2.0-7.7); Basophil# 0.02 X10^3/uL; Basophil% 0.3 % (0-1); Hematocrit 36.4 % (40-54); Lymphocyte # 0.62 X10^3/ul (0.83-4.51); Lymphocyte % 9.4 % (19-41); Mean Corpuscular Volume 94.1 fL (80-94); Mean Platelet Vol. 10.9 fl (6.2-12.0); Monocyte# 0.39 X10^3/uL; Monocyte% 5.9 % (0-10); NRBC Flagged by Analyzer 0 % (0-5); Neutrophil # 5.34 X10^3/uL (2.7-7.7); Neutrophil % 80.9 % (47-70); Platelet Count 205 K/mm3 (150-450); RBC Distribution Width CV 11.9 % (11.6-14.6); RBC Distribution Width SD 40.5 fl (35.1-43.9); Red Blood Count 3.87 M/mm3 (4.6-6.2); White Blood Count 6.6 K/mm3 (4.4-11.0)
[2024-03-21 09:55] LABS: Anion Gap 5 (5-15); BUN 16 mg/dL (7-18); BUN/Creat Ratio 15.5 RATIO (10-20); Calcium,Total 9.3 mg/dL (8.5-10.1); Chloride 103 mmol/L (98-107); Creatinine, Serum 1.03 mg/dL (0.70-1.30); EST Glomerular Filtration Rate 74 mL/min (>60); Est Glom Filt Rate - Afr Amer 89 mL/min (>60); Glucose 198 mg/dL (74-106); Potassium 4.1 mmol/L (3.5-5.1); Sodium Level 136 mmol/L (136-145)
[2024-03-21 10:26] LABS: Mucous, Urine 0 SEEN /hpf (<or=2+)
[2024-03-21 10:30] LABS: Color, Urine Red (Yellow); Glucose, Dipstick Normal (Normal); Ketone-Dipstick Negative (Negative); Leukocyte Esterase-Dipstick Negative /ul (Negative); Nitrite-Dipstick Negative (Negative); Occult Blood-Urine 250 /ul (Negative); Protein-Dipstick 500 mg/dl (Negative); Urine Bilirubin Dipstick Negative (Negative); Urine Clarity Turbid (Clear); Urine Urobilinogen Normal (Normal)
[2024-03-21 10:39] LABS: Red Blood Cells-Urine > 100 SEEN /hpf (0-5)
[2024-03-21 10:41] LABS: Bacteria 1+ /hpf (None Seen); Squamous Epithelial Cells - UA 0-5 SEEN /hpf (0-5); White Blood Cells 25-50 SEEN /hpf (0-5)
[2024-03-21] MEDS: Ceftriaxone 1 GM/50 ML BAG IV (11:15)
[2024-03-21 11:21] VITALS: BP 127/66; PULSE 71; RESP 15; O2SAT 98
[2024-03-21 12:40] VITALS: BP 130/75; PULSE 84; RESP 16; TEMP 36.6; O2SAT 96
== END 2024-03-21 12:41 | disposition home or self-care (01) ==
PROVIDERS: Emergency Provider Emergency Medicine; PCP Physician Assistant Medical; Visit Provider Emergency Medicine
DX: N39.0 Urinary tract infection, site not specified (principal); R31.9 Hematuria, unspecified; E78.00 Pure hypercholesterolemia, unspecified; N32.89 Other specified disorders of bladder; N40.0 Benign prostatic hyperplasia without lower urinary tract symptoms; F17.210 Nicotine dependence, cigarettes, uncomplicated; I10 Essential (primary) hypertension; K21.9 Gastro-esophageal reflux disease without esophagitis
CPT/HCPCS: 74177; 80048; 81001; 85025; 87086; 96365; 99284; P9612; Q9967; A4216

== ENCOUNTER 2024-03-21 23:11 | Emergency (ER) | payer MEDICARE, SELFPAY ==
[2024-03-21 23:11] VITALS: BP 143/55; PULSE 82; RESP 16; TEMP 36.5; O2SAT 98; BMI 25.3
--- NOTE | 2024-03-21 23:39 | EX.ED.GUMALE ---
HPI History of Present Illness Chief Complaint: Complaint Informant: patient Narrative Narrative: 78-year-old male presenting to the emergency room with inability to void. Patient has a history of prostate cancer status post radiation therapy. He has a history of intermittent hematuria. He was seen earlier in the day diagnosed with UTI (discharged on cefdinir) and given catheter specimens for self cathing. He states he returns tonight inability to void. He states that there are clots in the urine which are clotting off the catheter. He states he was trying to make it until his appointment tomorrow morning but was unable to do so. He sees Dr. Turner for urology. [facility] Medical History Cancer Wears hearing aid Wears contact lenses Wears dentures Alcohol use Bladder disease Prostate disease High cholesterol Injury of back Gastric reflux Chronic cough Smoker History of stress test Hypertension Home Medications ?Medication ?Instructions ?Recorded ?Last Taken ?Type aspirin 325 mg tablet,delayed 162.5 mg PO DAILY@0800 03/15/16 07/30/23 History release atorvastatin 10 mg tablet 10 mg PO DAILY 03/15/16 03/14/16 History fluticasone propionate 50 1 spray PRN PRN Allergies 03/15/16 03/15/16 History mcg/actuation nasal spray,suspension tamsulosin 0.4 mg capsule 0.8 mg PO DAILY 03/15/16 03/15/16 History ciprofloxacin HCl 500 mg tablet 500 mg PO BID #6 tabs 08/12/23 Unknown Rx (Cipro) amlodipine 10 mg tablet 10 mg PO DAILY 03/21/24 Unknown History catheter 6 Fr combo pack #100 ea 03/21/24 Unknown Rx cefdinir 300 mg capsule 300 mg PO Q12H #14 caps 03/21/24 Unknown Rx famotidine 20 mg tablet 20 mg PO DAILY 03/21/24 Unknown History lisinopril 40 mg tablet 40 mg PO DAILY 03/21/24 Unknown History Allergy/AdvReac Type Severity Reaction Status Date / Time No Known Allergies Allergy Verified 03/21/24 23:16 Surgical History History of colonoscopy History of spinal surgery Social History Smoking Status: Current every day smoker tobacco type: cigarettes ROS ROS ED Constitutional Constitutional ED: Denies chills, fever(s) or weight loss Eyes Eyes: Denies change in vision or diplopia ENT ENT ED: Denies ear pain, rhinorrhea or sore throat Cardiovascular Cardiovascular: Denies chest pain, orthopnea, palpitations or racing heartbeat Respiratory/Chest Respiratory/Chest: Denies cough, dyspnea or orthopnea Gastrointestinal Gastrointestinal: Denies abdominal pain, diarrhea, nausea or vomiting Genitourinary Genitourinary ED: Reports hematuria and other Details: Inability to void ; Denies dysuria or urinary frequency Musculoskeletal Musculoskeletal: Denies arthralgias or myalgias Integumentary Denies abscess or rash Neurologic Neurologic: Denies headache(s) or weakness Psychiatric Psychiatric: Denies anxiety, depression, suicidal ideation or suicidal thoughts Endocrine Endocrinology: Denies polydipsia, polyphagia or polyuria Allergic/Immunologic Allergic/Immunologic ED: Denies mouth swelling, tongue swelling or urticaria EXAM Physical Exam Const Vital Signs: 03/21/24 23:11 03/22/24 01:02 03/22/24 01:22 Temperature 97.7 F L 97.9 F Temperature Source Oral Pulse Rate 82 71 75 Respiratory Rate 16 18 18 Blood Pressure 143/55 H 139/58 H 124/64 H Blood Pressure Mean 84 85 84 Pulse Ox 98 97 Positive well nourished and well developed General Appearance ED: well developed HEENT Reports normocephalic, head/scalp atraumatic and moist mucous membranes Eyes PERRL and EOMs intact bilaterally Neck no lymphadenopathy, supple and no JVD Resp normal respiratory effort and clear to auscultation bilaterally Cardio regular rate, regular rhythm and no murmurs GI GI Narrative: Mild suprapubic tenderness to palpation. There is evidence of a left inguinal hernia that is reducible Palpation: soft and tender suprapubic; Negative for guarding or splenomegaly Back/Spine no CVA tenderness and normal ROM Extremity normal to inspection General Extremety ED: Negative for edema General Extremity: Negative for edema Neuro oriented x3 and CN's II-XII intact bilaterally Sensorium / Orientation: alert Motor Exam: strength 5/5 throughout Psych mental status grossly normal Mood & Affect: Negative for depressed or tearful Skin no rashes or lesions noted and no wounds MDM MDM MDM Narrative Medical decision making narrative: Differential diagnosis includes but not limited to acute urinary retention UTI hematuria radiation cystitis ureterolithiasis prostatitis I reviewed the patient's prior workup earlier today. There was evidence of UTI and is currently on antibiotic. A three-way catheter was placed and the bladder was irrigated. We are not getting a large amount of clots at this time. A urine has been free-flowing there is still a light red to pink tinge to it. He has a follow-up appointment later today. I do not feel strongly that he needs to be hospitalized tonight. He is comfortable going home I do not think at this point that the catheter should clot off as were not getting any clots. Patient to return if worsening or concerns History & Record Review Discussion w/independent historian: Patient Additional record(s) reviewed:: Prior ED visit and Prior labs Discharge Plan Triage Chief Complaint: Complaint ED Provider: Ha Jaquez Dx/Rx/DC Orders Clinical Impression: Hematuria Instructions: ED Hematuria Prescriptions: No Action atorvastatin 10 MG tablet 10 mg PO DAILY Patient Comments: cholesterol lowering med aspirin 325 MG tablet 162.5 mg PO DAILY@0800 Patient Comments: heart health tamsulosin 0.4 MG capsule 0.8 mg PO DAILY Patient Comments: treat urinary retention fluticasone propionate 1 SPRAY spray,suspension 1 spray NASAL PRN PRN (Reason: Allergies) Patient Comments: treat seasonal allergies or asthma ciprofloxacin HCl [Cipro] 500 mg tablet 500 mg PO BID Qty: 6 0RF famotidine 20 mg tablet 20 mg PO DAILY amlodipine 10 mg tablet 10 mg PO DAILY lisinopril 40 mg tablet 40 mg PO DAILY (DME) catheter 6 Fr combo pack See Rx Instructions .Route Qty: 100 0RF Rx Instructions: As directed cefdinir 300 mg capsule 300 mg PO Q12H Qty: 14 0RF Primary Care Provider: Belén Montoya Referrals: Barry Turner MD [Med Staff - Active Staff] - Keep Augustus appointment Belén Montoya PA [Primary Care Provider] - Print Language: Belarusian Disposition Disposition: Home, Self Care Discharge Date/Time: 03/22/24 01:28
--- NOTE | 2024-03-22 00:16 | ED.RN ---
manley manually flushed 150cc sterile water, bright red/pink drainage, no clots noted.
[2024-03-22 01:02] VITALS: BP 139/58; PULSE 71; RESP 18
[2024-03-22 01:22] VITALS: BP 124/64; PULSE 75; RESP 18; TEMP 36.6; O2SAT 97
== END 2024-03-22 01:28 | disposition home or self-care (01) ==
PROVIDERS: Emergency Provider Emergency Medicine; PCP Physician Assistant Medical; Visit Provider Emergency Medicine
DX: R31.9 Hematuria, unspecified (principal); E78.00 Pure hypercholesterolemia, unspecified; Z85.46 Personal history of malignant neoplasm of prostate; Z92.3 Personal history of irradiation; I10 Essential (primary) hypertension; Z79.82 Long term (current) use of aspirin; Z79.899 Other long term (current) drug therapy; F17.210 Nicotine dependence, cigarettes, uncomplicated
CPT/HCPCS: 51702; 99283; A4216

== ENCOUNTER 2024-03-24 22:10 | Emergency (ER) | payer MEDICARE, SELFPAY ==
[2024-03-24 22:11] VITALS: BP 142/66; PULSE 109; RESP 20; TEMP 36.6; O2SAT 99; BMI 25.9
--- NOTE | 2024-03-24 23:29 | EDS_ITS ---
HPI History of Present Illness Chief Complaint: Choi C/O Detail of Chief Complaint: Obstructed Choi catheter with blood. Informant: patient Pain Onset: Today and Hours Context: Gradual Onset Timing: Continuous Current Severity: Mild Maximum Severity: Mild Narrative Narrative: 78-year-old male history of prostate cancer, hypertension and BPH. Had prior radiation therapy no chemotherapy. He is on aspirin but no other blood thinners. Was seen in the emergency department 3 days ago. Had a Choi catheter placed. Choi catheter was working well and then about 2 hours prior to arrival he noticed it was not draining. He denies any other complaints. Bladder fullness. Prior similar symptoms: No Recent Illness/Hospitalization: No PFSH PFS Medical History Cancer Wears hearing aid Wears contact lenses Wears dentures Alcohol use Bladder disease Prostate disease High cholesterol Injury of back Gastric reflux Chronic cough Smoker History of stress test Hypertension Home Medications ?Medication ?Instructions ?Recorded ?Last Taken ?Type aspirin 325 mg tablet,delayed 162.5 mg PO DAILY@0800 03/15/16 07/30/23 History release atorvastatin 10 mg tablet 10 mg PO DAILY 03/15/16 03/14/16 History fluticasone propionate 50 1 spray PRN PRN Allergies 03/15/16 03/15/16 History mcg/actuation nasal spray,suspension tamsulosin 0.4 mg capsule 0.8 mg PO DAILY 03/15/16 03/15/16 History ciprofloxacin HCl 500 mg tablet 500 mg PO BID #6 tabs 08/12/23 Unknown Rx (Cipro) amlodipine 10 mg tablet 10 mg PO DAILY 03/21/24 Unknown History catheter 6 Fr combo pack #100 ea 03/21/24 Unknown Rx cefdinir 300 mg capsule 300 mg PO Q12H #14 caps 03/21/24 Unknown Rx famotidine 20 mg tablet 20 mg PO DAILY 03/21/24 Unknown History lisinopril 40 mg tablet 40 mg PO DAILY 03/21/24 Unknown History Allergy/AdvReac Type Severity Reaction Status Date / Time No Known Allergies Allergy Verified 03/24/24 22:11 Surgical History History of colonoscopy History of spinal surgery Social History Smoking Status: Current every day smoker tobacco type: cigarettes ROS ROS ED ROS Narrative Denies recent illness. Constitutional Constitutional ED: Denies chills or fever(s) Eyes Eyes: Denies blurry vision ENT ENT ED: Denies ear pain Cardiovascular Cardiovascular: Denies chest pain Respiratory/Chest Respiratory/Chest: Denies cough or dyspnea Gastrointestinal Gastrointestinal: Denies abdominal pain, constipation, diarrhea, melena, nausea or vomiting Genitourinary Genitourinary ED: Reports hematuria Musculoskeletal Musculoskeletal: Denies arthralgias Integumentary Denies abscess Neurologic Neurologic: Denies headache(s) Psychiatric Psychiatric: Denies anxiety Endocrine Endocrinology: Denies polydipsia Hematologic/Lymphatic Hematologic/Lymphatic: Denies easy bleeding, easy bruising or lymphadenopathy Allergic/Immunologic Allergic/Immunologic ED: Denies mouth swelling, tongue swelling or urticaria EXAM Physical Exam Narrative Exam Narrative: Well-appearing 78-year-old male. Vital signs stable afebrile. H EENT exam unremarkable. Lungs clear. Heart regular rhythm rate about 100 no murmur. Abdomen is soft, nontender, nondistended, normal bowel sounds without peritoneal signs. As I entered the room the nurses already in there she is already unclog the Choi catheter is irrigated. Initially had 400 cc of blood tinged urine. Three-way 22 Burmese Choi catheter is currently working well. Has been irrigated with a liter still blood-tinged. No large clots. Moving all 4 extremities. Nontender no edema. He is awake and alert. Const Vital Signs: 03/24/24 22:11 Temperature 97.8 F Temperature Source Temporal Pulse Rate 109 H Respiratory Rate 20 H Blood Pressure 142/66 H Blood Pressure Mean 91 Pulse Ox 99 Oxygen Delivery Method Room Air Positive well nourished and well developed; Negative for obese, cachectic, contractures or unkempt General Appearance ED: well developed and NAD; Negative for unkempt, cachectic, contractures or pallor Nutritional Appearance: Negative for cachectic or obese HEENT Reports moist mucous membranes normocephalic and atraumatic; Negative for trauma or tenderness Eyes PERRL and EOMs intact bilaterally General Eye ED: Negative for pale conjunctiva or scleral icterus Neck no lymphadenopathy, supple and no JVD General: Negative for tenderness Resp normal respiratory effort and clear to auscultation bilaterally Effort and Inspection: Negative for retractions Auscultation: Negative for rales, rhonchi, wheezes or diminished lung sounds Cardio regular rate, regular rhythm, S1 normal heart sound, S2 normal heart sound and no murmurs Rate: Negative for bradycardia or tachycardic Rhythm: Negative for abnormal rhythm GI non-tender and no masses GI Narrative: Choi catheter already unclogged and being flushed by RN. Auscultation: normoactive bowel sounds Palpation: soft; Negative for tender or guarding no CVA tenderness Back/Spine no CVA tenderness Extremity normal to inspection General Extremety ED: Negative for edema or pulses abnormal General Extremity: Negative for edema or pulses abnormal Neuro oriented x3, CN's II-XII intact bilaterally, moves all extremities and no focal motor deficits Sensorium / Orientation: alert, oriented to person and oriented to place; Negative for orientation impaired, confused, lethargic or stuporous Motor Exam: strength 5/5 throughout Psych mental status grossly normal Appearance: Negative for unkempt Mood & Affect: Negative for depressed Thought Process: normal thought process Thought Content: normal thought content Skin General Skin Exam: Negative for jaundice or pallor Lesions: no lesions Rashes: no rashes Trauma: Negative for abrasion MDM MDM MDM Narrative Medical decision making narrative: 78-year-old male obstructed Choi catheter due to gross hematuria. Nurses already irrigated 22 Burmese Choi catheter. As it unclogged. She is due irrigated with a second liter to try to clear the urine. He had labs done the other day. His blood count was stable around 12. He has had a recent UTI and currently is already on antibiotic. He sees Dr. Hieu Turner of urology. Repeat exam patient is doing well at 11:50 PM. Nurse irrigating with a second liter of saline. He still has blood-tinged urine but not large clots. The Choi is working well. I discussed with the patient 2 options admission for bladder irrigation or discharge to home. He does not want to stay. He has appointment to see his urologist on Thursday. He knows to return if the bleeding is worse, he is feeling worse or his bladder gets obstructed. History & Record Review Discussion w/independent historian: Patient Discharge Plan Triage Chief Complaint: Choi C/O ED Provider: Mian Morales Dx/Rx/DC Orders Clinical Impression: Obstructed Choi catheter, Gross hematuria, History of prostate cancer, History of urinary retention, History of UTI Instructions: ED Choi Catheter, Care Prescriptions: No Action atorvastatin 10 MG tablet 10 mg PO DAILY Patient Comments: cholesterol lowering med aspirin 325 MG tablet 162.5 mg PO DAILY@0800 Patient Comments: heart health tamsulosin 0.4 MG capsule 0.8 mg PO DAILY Patient Comments: treat urinary retention fluticasone propionate 1 SPRAY spray,suspension 1 spray NASAL PRN PRN (Reason: Allergies) Patient Comments: treat seasonal allergies or asthma ciprofloxacin HCl [Cipro] 500 mg tablet 500 mg PO BID Qty: 6 0RF famotidine 20 mg tablet 20 mg PO DAILY amlodipine 10 mg tablet 10 mg PO DAILY lisinopril 40 mg tablet 40 mg PO DAILY (DME) catheter 6 Fr combo pack See Rx Instructions .Route Qty: 100 0RF Rx Instructions: As directed cefdinir 300 mg capsule 300 mg PO Q12H Qty: 14 0RF Primary Care Provider: Belén Montoya Referrals: Barry Turner MD [Med Staff - Active Staff] - As soon as possible Belén Montoya PA [Primary Care Provider] - Activity Restrictions/Additional Instructions: Plenty of water and fluids to keep clearing your Choi to try to prevent it from getting obstructed with blood. If it gets obstructed again and is not draining just return. Follow-up with your urologist Dr. Hieu Turner. Since you are having blood in your urine hold your aspirin at this time. Print Language: Beninese Disposition Disposition: Home, Self Care
[2024-03-25] VITALS: BP 135/70; PULSE 88; RESP 20; TEMP 36.6; O2SAT 99
--- NOTE | 2024-03-25 00:11 | ED.RN ---
[address]-cath flushed with 2000cc sterile water. cath changed to leg bag per pt. request. patent and draining.
== END 2024-03-25 00:09 | disposition home or self-care (01) ==
PROVIDERS: Emergency Provider Emergency Medicine; PCP Physician Assistant Medical; Visit Provider Emergency Medicine
DX: T83.091A Other mechanical complication of indwelling urethral catheter, initial encounter (principal); R31.0 Gross hematuria; I10 Essential (primary) hypertension; E78.00 Pure hypercholesterolemia, unspecified; Z79.82 Long term (current) use of aspirin; Z85.46 Personal history of malignant neoplasm of prostate; F17.210 Nicotine dependence, cigarettes, uncomplicated; Z87.440 Personal history of urinary (tract) infections; Y73.8 Miscellaneous gastroenterology and urology devices associated with adverse incidents, not elsewhere classified
CPT/HCPCS: 99282

== ENCOUNTER → 2024-03-29 | Outpatient (CLI) | payer MEDICARE, SELFPAY ==
--- NOTE | 2024-03-29 09:00 | PET_ITS ---
EXAMINATION: F [address] HISTORY: 78-year-old male with history of primary prostate carcinoma presenting for restaging examination. COMPARISON EXAMINATION: CT of the abdomen-pelvis report 03/21/2024 INDEX LESION SIZE PROMISE SCORE SUV TUMOR PAROTID RATIO INTERPRETATION Prostate gland 38.6 mm 2 27.6 NA Fulfills quantitative criteria for neoplasia TECHNIQUE: Following the intravenous administration of 9.84 mCi of F 18 Pylarify PSMA- via the left antecubital fossa, image acquisitions of the head, neck, chest, abdomen and pelvis contemporaneously interpreted with the CT of neck, chest, abdomen and pelvis dated 03/29/2024 to the level of the mid thigh at 70 minutes post-tracer distribution reveal: The examination was interpreted using the EANM (Shilpa et al., Journal of Nuclear Medicine Molecular Imaging 44:1622, 2017) and PROMISE (Indra et al., Journal of Nuclear Medicine 59:469, 2018) interpretive criteria. HEIGHT: 69 inches WEIGHT: 170 pounds PSMA expression score PROMISE criteria: High (3): SUV ? parotid-salivary gland, intermediate (2): SUV ? liver, low (1): > blood pool, < liver, (0): < blood pool. SUV reference values: Parotid glands 34.79 Normal liver parenchyma 6.7 Blood pool 2.0 FINDINGS: Head/Neck: Symmetric radiopharmaceutical is defined in the right and left parotid and submandibular glands. Physiologic uptake is identified in the nasal cavity. There is no evidence of abnormal increased tracer uptake within the cranial vault. CHEST: There is no abnormal increased tracer concentration identified within the context of the bilateral hemithorax, mediastinum and thoracic perihilum. Pertinent chest CT findings are as follows. Atherosclerotic calcification is defined in the thoracic aorta without evidence of aneurysm formation. Coronary arterial calcification is observed. There are no parenchymal densities-nodules defined in the right and left hemithorax with quantitatively significant increased radiopharmaceutical identified. Paraseptal changes are defined in the bilateral upper lung zones. Abdomen/Pelvis: Increased radiotracer is defined in the lower pelvis associated with prostate gland left of midline. The calculated standard uptake value is 27.6. The PROMISE score is 2. The maximal axial diameter of the metabolic abnormality is 38.6 mm. fNormal physiologic uptake is noted in the hepatic and splenic parenchyma. There is symmetric demonstration of the right and left kidneys, normal uptake in the urinary bladder and visualized intestinal tract. Review of CT of the abdomen and pelvis reveals the following. Abdominal aorta demonstrates calcification without dilatation. Abdominal and pelvic arterial calcification is observed. Calcified phlebolith formation is noted in the bilateral lower hemipelvis. A large fat containing left inguinal hernia is noted. Calcified granuloma formation is noted in the splenic parenchyma. SKELETAL: Degenerative changes identified on the axial skeleton without evidence of increased tracer uptake. Apparent postprocedural change is manifest in the upper thoracic vertebra. PET/PET/CT Tumor Base -Thigh Subs IMPRESSION: 1. ABNORMAL EXAMINATION INDICATIVE OF MALIGNANT-VIABLE NEOPLASM. 2. Increased fluorine labeled tracer uptake noted in the prostate gland left midline fulfills quantitative criteria for viable neoplasm. Electronic Signature Maxwell Price D.O. Accurate Quantification of SUVs and standardized PROMISE scores for this report are calculated using the exclusive [employer], ([place] Patent No. [id number] [phone] [place] patent [phone] ). Standardization and correction of the FDG SUV metric exclusively available with [employer] intellectual property, allow for vendor non-specific objective quantitative sequential FDG PET-CT comparison and otherwise unobtainable optimization of the sensitivity and specificity of the examination. https://[employer] Electronically Signed: Maxwell Price DO at 23:07 EST ,
== END | disposition home or self-care (01) ==
LOC: ONC 08:39 → RAO 04-26 16:21
PROVIDERS: PCP Physician Assistant Medical; Referring Provider Urology; Visit Provider Urology
DX: C61 Malignant neoplasm of prostate (principal); R97.21 Rising PSA following treatment for malignant neoplasm of prostate; R33.8 Other retention of urine; N40.1 Benign prostatic hyperplasia with lower urinary tract symptoms
CPT/HCPCS: 78815; A9595

== ENCOUNTER 2024-04-03 16:21 | Emergency (ER) | payer MEDICARE, SELFPAY ==
[2024-04-03 16:22] VITALS: BP 124/45; PULSE 93; RESP 19; TEMP 36.6; O2SAT 100; BMI 25.8
--- NOTE | 2024-04-03 16:32 | EDS_ITS ---
HPI History of Present Illness Chief Complaint: Complaint Informant: patient Narrative Narrative: 78-year-old male has history of an enlarged prostate and had urinary retention necessitating a catheter 1-2 weeks ago here, he states this is the second time since then that the catheter stopped flowing, presumably due to blood. He has been having intermittent bleeding ever since, and today the catheter stopped flowing several hours ago and he has what feels like a full bladder and a small amount of blood leaking around the catheter. He denies any nausea, vomiting, other abdominal pains, fevers, or other systemic symptoms. He takes no anticoagulants. Has an appointment on 04/20 for prostate surgery with Dr. Turner. [facility] Medical History Cancer Wears hearing aid Wears contact lenses Wears dentures Alcohol use Bladder disease Prostate disease High cholesterol Injury of back Gastric reflux Chronic cough Smoker History of stress test Hypertension Home Medications ?Medication ?Instructions ?Recorded ?Last Taken ?Type aspirin 325 mg tablet,delayed 162.5 mg PO DAILY@0800 03/15/16 07/30/23 History release atorvastatin 10 mg tablet 10 mg PO DAILY 03/15/16 03/14/16 History fluticasone propionate 50 1 spray PRN PRN Allergies 03/15/16 03/15/16 History mcg/actuation nasal spray,suspension tamsulosin 0.4 mg capsule 0.8 mg PO DAILY 03/15/16 03/15/16 History ciprofloxacin HCl 500 mg tablet 500 mg PO BID #6 tabs 08/12/23 Unknown Rx (Cipro) amlodipine 10 mg tablet 10 mg PO DAILY 03/21/24 Unknown History catheter 6 Fr combo pack #100 ea 03/21/24 Unknown Rx cefdinir 300 mg capsule 300 mg PO Q12H #14 caps 03/21/24 Unknown Rx famotidine 20 mg tablet 20 mg PO DAILY 03/21/24 Unknown History lisinopril 40 mg tablet 40 mg PO DAILY 03/21/24 Unknown History Allergy/AdvReac Type Severity Reaction Status Date / Time No Known Allergies Allergy Verified 03/24/24 22:11 Surgical History History of colonoscopy History of spinal surgery Social History Smoking Status: Current every day smoker tobacco type: cigarettes ROS ROS ED Constitutional Constitutional ED: Denies chills or fever(s) Gastrointestinal Gastrointestinal: Denies nausea or vomiting Genitourinary Genitourinary ED: Reports as per HPI, abdominal discomfort, difficulty urinating and hematuria Musculoskeletal Musculoskeletal: Denies back pain or neck pain EXAM Physical Exam Const Vital Signs: 04/03/24 16:22 04/03/24 18:21 Temperature 97.8 F Temperature Source Temporal Pulse Rate 93 92 Respiratory Rate 19 H 16 Blood Pressure 124/45 H 122/87 H Blood Pressure Mean 71 98 Pulse Ox 100 98 Oxygen Delivery Method Room Air Positive well nourished and well developed General Appearance ED: well developed and NAD HEENT Reports moist mucous membranes Eyes PERRL and EOMs intact bilaterally Neck supple Resp normal respiratory effort GI non-distended GI Narrative: Nontender left inguinal direct hernia. No overlying erythema. Mild discomfort with palpating suprapubic area, presumably due to full bladder. No other abdominal tenderness. no CVA tenderness Narrative: Three-way Choi catheter in place uncircumcised penis, trace amount of blood present around the catheter at the urethral meatus which is otherwise unremarkable no active bleeding. Trace amount of bloody discharge/urine in the Choi bag. Back/Spine no CVA tenderness Extremity normal to inspection Neuro oriented x3, CN's II-XII intact bilaterally, no focal motor deficits and no sensory deficits noted Psych mental status grossly normal Skin Lesions: no lesions Rashes: no rashes MDM MDM MDM Narrative Medical decision making narrative: Nursing irrigated the patient's Choi and was able to clear the blockage with some clots that came out. He felt a lot better. He still had some hematuria, so we did continuous bladder irrigation with a large bag of sterile saline. Patient was asymptomatic afterwards, but he had [id number] hematuria without clots or sediment. It was transparent. He is not heavily bleeding. He has no symptoms of anemia or orthostatic symptoms, and his vital signs are normal. I reviewed his old labs and urinalysis. His culture was negative and I do not think we need to repeat that looking for infection or repeat his blood counts. We do not have any urology coverage this weekend to discuss for possibility of admission or sooner operative management. Patient states that his urologist told him he thought it was coming from his prostate and he has scheduled surgery, I advised him to call his urologist after the weekend and see if he can get that moved up sooner. Otherwise we discussed reasons to return, and he is comfortable with going home. Nursing gave him some supplies to irrigate his catheter with sterile fluids if he has a recurrent blockage. History & Record Review Additional record(s) reviewed:: Prior labs Discharge Plan Triage Chief Complaint: Complaint ED Provider: Jose Raul Mg Dx/Rx/DC Orders Clinical Impression: Complication, blocked Choi catheter, Hematuria Instructions: ED Hematuria Prescriptions: No Action atorvastatin 10 MG tablet 10 mg PO DAILY Patient Comments: cholesterol lowering med aspirin 325 MG tablet 162.5 mg PO DAILY@0800 Patient Comments: heart health tamsulosin 0.4 MG capsule 0.8 mg PO DAILY Patient Comments: treat urinary retention fluticasone propionate 1 SPRAY spray,suspension 1 spray NASAL PRN PRN (Reason: Allergies) Patient Comments: treat seasonal allergies or asthma ciprofloxacin HCl [Cipro] 500 mg tablet 500 mg PO BID Qty: 6 0RF famotidine 20 mg tablet 20 mg PO DAILY amlodipine 10 mg tablet 10 mg PO DAILY lisinopril 40 mg tablet 40 mg PO DAILY (DME) catheter 6 Fr combo pack See Rx Instructions .Route Qty: 100 0RF Rx Instructions: As directed cefdinir 300 mg capsule 300 mg PO Q12H Qty: 14 0RF Primary Care Provider: Belén Montoya Referrals: Barry Turner MD [Med Staff - Active Staff] - As soon as possible Belén Montoya PA [Primary Care Provider] - Print Language: Mongolian Disposition Disposition: Home, Self Care
[2024-04-03 18:21] VITALS: BP 122/87; PULSE 92; RESP 16; O2SAT 98
--- NOTE | 2024-04-03 19:05 | ED.RN ---
CBI FLUSHING LIGHT PINK, DR BRANTLEY AWARE. PT STATES HE FEELS BETTER AND WANTS TO GO HOME.
--- NOTE | 2024-04-03 19:58 | ED.RN ---
per Dr. Mg's instructions, pt. was provided w/ supplies for at home manual irrigation for potential clot obstructions. (2) 30cc flush, (1) 3 way-cath plug, (3) normal saline 250cc bottles, (1) graduated cylinder, (1) leg bag, (1) leg stat lock for manley. Education was provided for at home manual irrigation of manley. Learning assessed via teach-back.
[2024-04-03 20:00] VITALS: BP 123/69; PULSE 88; RESP 16; TEMP 37.1; O2SAT 98
== END 2024-04-03 20:19 | disposition home or self-care (01) ==
PROVIDERS: Emergency Provider Emergency Medicine; PCP Physician Assistant Medical; Visit Provider Emergency Medicine
DX: T83.091A Other mechanical complication of indwelling urethral catheter, initial encounter (principal); R31.9 Hematuria, unspecified; E78.00 Pure hypercholesterolemia, unspecified; K40.90 Unilateral inguinal hernia, without obstruction or gangrene, not specified as recurrent; F17.210 Nicotine dependence, cigarettes, uncomplicated; I10 Essential (primary) hypertension; Z79.82 Long term (current) use of aspirin
CPT/HCPCS: 99283

== ENCOUNTER 2024-04-04 14:09 | Inpatient (IN) | payer MEDICARE, SELFPAY ==
[2024-04-04 14:10] VITALS: BP 114/55; PULSE 88; RESP 16; TEMP 36.4; O2SAT 98; BMI 25.8
[2024-04-04 15:15] LABS: Absolute Lymphocyte Count 0.88 X10^3/uL (0.83-4.51); Absolute Neutrophil Count 6.4 X10^3/uL (2.0-7.7); Basophil# 0.03 X10^3/uL; Basophil% 0.4 % (0-1); Eosinophil# 0.29 X10^3/uL; Eosinophils% 3.5 % (0-5); Hematocrit 25.7 % (40-54); Hemoglobin 8.3 g/dL (13.0-16.5); Lymphocyte # 0.88 X10^3/ul (0.83-4.51); Lymphocyte % 10.7 % (19-41); Mean Corp Hgb Conc 32.3 g/dL (32-36); Mean Corpuscular Hgb 30.4 pg (27.0-32.0); Mean Corpuscular Volume 94.1 fL (80-94); Mean Platelet Vol. 10.8 fl (6.2-12.0); Monocyte# 0.61 X10^3/uL; Monocyte% 7.4 % (0-10); NRBC Flagged by Analyzer 0 % (0-5); Neutrophil # 6.39 X10^3/uL (2.7-7.7); Neutrophil % 77.5 % (47-70); Platelet Count 278 K/mm3 (150-450); RBC Distribution Width CV 12.1 % (11.6-14.6); RBC Distribution Width SD 41.5 fl (35.1-43.9); Red Blood Count 2.73 M/mm3 (4.6-6.2); White Blood Count 8.2 K/mm3 (4.4-11.0)
[2024-04-04 15:20] LABS: Anion Gap 5 (5-15); BUN 18 mg/dL (7-18); BUN/Creat Ratio 13.6 RATIO (10-20); Calcium,Total 8.3 mg/dL (8.5-10.1); Chloride 106 mmol/L (98-107); Creatinine, Serum 1.32 mg/dL (0.70-1.30); EST Glomerular Filtration Rate 55 mL/min (>60); Est Glom Filt Rate - Afr Amer 67 mL/min (>60); Estimated Creatinine Clearance 44.63 ml/min; Glucose 179 mg/dL (74-106); Potassium 4.5 mmol/L (3.5-5.1); Sodium Level 138 mmol/L (136-145)
[2024-04-04 15:43] VITALS: BMI 25.1
[2024-04-04 15:46] VITALS: BP 114/55; PULSE 75; RESP 18; TEMP 36.7; O2SAT 97
[2024-04-04 15:51] VITALS: BP 135/51; PULSE 73; RESP 18; TEMP 36.8; O2SAT 99
[2024-04-04 20:27] VITALS: BP 130/58; PULSE 72; RESP 16; TEMP 36.9; O2SAT 96
[2024-04-05] VITALS (13 sets, daily range): BP systolic 101–129; BP diastolic 39–60; PULSE 53–116; RESP 12–18; TEMP 36.6–36.9; O2SAT 9–100
[2024-04-05 07:00] LABS: Absolute Lymphocyte Count 1.19 X10^3/uL (0.83-4.51); Absolute Neutrophil Count 7.3 X10^3/uL (2.0-7.7); Basophil# 0.01 X10^3/uL; Basophil% 0.1 % (0-1); Eosinophil# 0.47 X10^3/uL; Eosinophils% 4.9 % (0-5); Hematocrit 24.8 % (40-54); Lymphocyte # 1.19 X10^3/ul (0.83-4.51); Lymphocyte % 12.4 % (19-41); Mean Corp Hgb Conc 32.3 g/dL (32-36); Mean Corpuscular Hgb 30.4 pg (27.0-32.0); Mean Corpuscular Volume 94.3 fL (80-94); Mean Platelet Vol. 11.3 fl (6.2-12.0); Monocyte% 6.2 % (0-10); NRBC Flagged by Analyzer 0 % (0-5); Neutrophil # 7.31 X10^3/uL (2.7-7.7); Neutrophil % 76.1 % (47-70); Platelet Count 264 K/mm3 (150-450); RBC Distribution Width CV 11.9 % (11.6-14.6); RBC Distribution Width SD 40.7 fl (35.1-43.9); Red Blood Count 2.63 M/mm3 (4.6-6.2); White Blood Count 9.6 K/mm3 (4.4-11.0)
[2024-04-05 07:09] LABS: International Normalized Ratio 1.3; Prothrombin Time (Protime)PT. 15.7 SECONDS (11.7-14.9)
[2024-04-05 07:10] LABS: Partial Thromboplast Time 27.4 Seconds (24.1-36.2)
[2024-04-05 07:29] LABS: Anion Gap 5 (5-15); BUN 14 mg/dL (7-18); BUN/Creat Ratio 14.9 RATIO (10-20); Calcium,Total 8.5 mg/dL (8.5-10.1); Chloride 108 mmol/L (98-107); Creatinine, Serum 0.94 mg/dL (0.70-1.30); EST Glomerular Filtration Rate 82 mL/min (>60); Est Glom Filt Rate - Afr Amer 99 mL/min (>60); Estimated Creatinine Clearance 62.68 ml/min; Glucose 121 mg/dL (74-106); Potassium 4.6 mmol/L (3.5-5.1); Sodium Level 139 mmol/L (136-145)
[2024-04-05] MEDS: Lactated Ringers 1,000 ML 15 ML IV (09:30)
[2024-04-05] MEDS: Cefazolin 2 GM in Syringe IV (10:35)
[2024-04-05 13:52] LABS: Hematocrit 27.5 % (40-54); Hemoglobin 8.7 g/dL (13.0-16.5); Mean Corp Hgb Conc 31.6 g/dL (32-36); Mean Corpuscular Hgb 30.1 pg (27.0-32.0); Mean Corpuscular Volume 95.2 fL (80-94); Mean Platelet Vol. 10.6 fl (6.2-12.0); Platelet Count 268 K/mm3 (150-450); RBC Distribution Width CV 11.9 % (11.6-14.6); RBC Distribution Width SD 41.6 fl (35.1-43.9); Red Blood Count 2.89 M/mm3 (4.6-6.2); White Blood Count 9.7 K/mm3 (4.4-11.0)
[2024-04-05 14:21] LABS: Anion Gap 4 (5-15); BUN 13 mg/dL (7-18); BUN/Creat Ratio 12.7 RATIO (10-20); Calcium,Total 8.5 mg/dL (8.5-10.1); Chloride 106 mmol/L (98-107); Creatinine, Serum 1.02 mg/dL (0.70-1.30); EST Glomerular Filtration Rate 75 mL/min (>60); Est Glom Filt Rate - Afr Amer 90 mL/min (>60); Estimated Creatinine Clearance 57.76 ml/min; Glucose 160 mg/dL (74-106); Potassium 4.6 mmol/L (3.5-5.1); Sodium Level 137 mmol/L (136-145)
[2024-04-05] MEDS: Ciprofloxacin 500 MG Tablet PO (21:07)
[2024-04-05] MEDS: Acetaminophen 325 MG Tablet 650 MG PO (22:23)
[2024-04-06 03:15] VITALS: BP 102/52; PULSE 60; RESP 18; TEMP 37.3; O2SAT 100
[2024-04-06 06:45] LABS: Hemoglobin 8.1 g/dL (13.0-16.5); Mean Corp Hgb Conc 32.4 g/dL (32-36); Mean Corpuscular Hgb 30.7 pg (27.0-32.0); Mean Corpuscular Volume 94.7 fL (80-94); Mean Platelet Vol. 11.1 fl (6.2-12.0); Platelet Count 247 K/mm3 (150-450); RBC Distribution Width SD 41.3 fl (35.1-43.9); Red Blood Count 2.64 M/mm3 (4.6-6.2); White Blood Count 10.2 K/mm3 (4.4-11.0)
[2024-04-06 07:12] LABS: Anion Gap 4 (5-15); BUN 17 mg/dL (7-18); Calcium,Total 8.1 mg/dL (8.5-10.1); Chloride 106 mmol/L (98-107); EST Glomerular Filtration Rate 76 mL/min (>60); Est Glom Filt Rate - Afr Amer 92 mL/min (>60); Estimated Creatinine Clearance 58.92 ml/min; Glucose 126 mg/dL (74-106); Potassium 4.3 mmol/L (3.5-5.1); Sodium Level 137 mmol/L (136-145)
[2024-04-06 08:26] VITALS: BP 117/41; PULSE 70; RESP 18; TEMP 36.9; O2SAT 94
[2024-04-06 10:05] VITALS: BP 115/51; PULSE 74; RESP 16; TEMP 36.9
[2024-04-06] MEDS: Ciprofloxacin 500 MG Tablet PO (10:41)
[2024-04-06] MEDS: amLODIPine 10 MG Tablet PO (10:42)
[2024-04-06] MEDS: Atorvastatin Calcium 10 MG Tablet PO (10:42)
[2024-04-06] MEDS: Tamsulosin HCl 0.4 MG Capsule 0.8 MG PO (10:42)
[2024-04-06] MEDS: Lisinopril 40 MG Tablet PO (10:43)
[2024-04-06 14:21] VITALS: BP 97/50; PULSE 88; RESP 16; TEMP 36.4; O2SAT 98
[2024-04-06 18:28] VITALS: BP 130/66; PULSE 79; RESP 16; TEMP 36.8; O2SAT 98
== END 2024-04-06 19:22 | disposition home or self-care (01) | DRG 713 ==
LOC: ED 15:26 → PCU 15:32
PROVIDERS: Anesthesiology; Admitting Provider Urology; Emergency Provider Emergency Medicine; PCP Physician Assistant Medical; Referring Provider Emergency Medicine; Visit Provider Urology
PROC: 0VT08ZZ Resection of Prostate, Via Natural or Artificial Opening Endoscopic (ICD-10-PCS; principal; 2024-04-05 10:05)
DX: C61 Malignant neoplasm of prostate (principal); D62 Acute posthemorrhagic anemia; N13.8 Other obstructive and reflux uropathy; I10 Essential (primary) hypertension; E78.00 Pure hypercholesterolemia, unspecified; F17.210 Nicotine dependence, cigarettes, uncomplicated; K21.9 Gastro-esophageal reflux disease without esophagitis; R31.0 Gross hematuria; Z92.3 Personal history of irradiation; N40.1 Benign prostatic hyperplasia with lower urinary tract symptoms
CPT/HCPCS: 36415; 80048; 85025; 85027; 85610; 85730; 88305; 93005; 99283; 99284; J7120; A4216; J2405

== ENCOUNTER 2024-04-26 10:06 | Emergency (ER) | payer MEDICARE, SELFPAY ==
[2024-04-26 10:06] VITALS: BP 114/69; PULSE 87; RESP 20; TEMP 36.6; O2SAT 98; BMI 25.1
--- NOTE | 2024-04-26 10:41 | EX.ED.GUMALE ---
HPI History of Present Illness Chief Complaint: Abd Pain Detail of Chief Complaint: Urethral pain status post TURP procedure about 3 weeks ago. Informant: patient Pain Onset: Weeks Context: Gradual Onset Timing: Intermittent Current Severity: Mild Maximum Severity: Mild Narrative Narrative: 78-year-old male history of prostate cancer status post recent TURP procedure done by Dr. Hieu Turner about 3 weeks ago. Patient states he has had urethral pain since that time. He also has a known left inguinal hernia. It is not new or different. Patient has to self catheterize himself to urinate. Denies any fever. Able to have bowel movements. Prior similar symptoms: Yes Recent Illness/Hospitalization: Yes PFSH PFSH Medical History Cancer Wears hearing aid Wears contact lenses Wears dentures Alcohol use Bladder disease Prostate disease High cholesterol Injury of back Gastric reflux Chronic cough Smoker History of stress test Hypertension Home Medications ?Medication ?Instructions ?Recorded ?Last Taken ?Type atorvastatin 10 mg tablet 10 mg PO DAILY cholesterol 03/15/16 04/04/24 History fluticasone propionate 50 1 spray PRN PRN Allergies 03/15/16 03/15/16 History mcg/actuation nasal spray,suspension tamsulosin 0.4 mg capsule 0.8 mg PO DAILY retention 03/15/16 04/04/24 History amlodipine 10 mg tablet 10 mg PO DAILY BP 03/21/24 04/04/24 History catheter 6 Fr combo pack #100 ea 03/21/24 Unknown Rx famotidine 20 mg tablet 20 mg PO DAILY PRN heartburn 03/21/24 Unknown History lisinopril 40 mg tablet 40 mg PO DAILY BP 03/21/24 04/04/24 History ciprofloxacin HCl 500 mg tablet 500 mg PO BID 10 days #20 tabs 04/26/24 Unknown Rx (Cipro) oxycodone 5 mg capsule 5 mg PO Q6H PRN pain 5 days #20 04/26/24 Unknown Rx caps Allergy/AdvReac Type Severity Reaction Status Date / Time No Known Allergies Allergy Verified 04/04/24 14:10 Surgical History History of colonoscopy History of spinal surgery Social History Smoking Status: Current every day smoker tobacco type: cigarettes ROS ROS ED ROS Narrative Urethral pain. Constitutional Constitutional ED: Denies chills or fever(s) Eyes Eyes: Denies blurry vision ENT ENT ED: Denies ear pain Cardiovascular Cardiovascular: Denies chest pain Respiratory/Chest Respiratory/Chest: Denies cough or dyspnea Gastrointestinal Gastrointestinal: Denies abdominal pain Genitourinary Genitourinary ED: Reports other Details: Patient catheterizes himself to urinate. ; Denies dysuria Musculoskeletal Musculoskeletal: Denies arthralgias, back pain, myalgias or neck pain Integumentary Denies abscess or rash Neurologic Neurologic: Denies headache(s) Psychiatric Psychiatric: Denies anxiety or depression Endocrine Endocrinology: Denies polydipsia, polyphagia or polyuria Hematologic/Lymphatic Hematologic/Lymphatic: Denies easy bleeding or easy bruising Allergic/Immunologic Allergic/Immunologic ED: Denies mouth swelling, tongue swelling or urticaria EXAM Physical Exam Narrative Exam Narrative: 78-year-old male no acute distress. Vital signs stable afebrile. H EENT exam unremarked. Neck nontender. Lungs clear to auscultation bilaterally. Heart regular rate and rhythm rate about 85 no murmur. Chest wall ribs nontender. Abdomen soft, nontender, nondistended, normal bowel sounds without peritoneal signs. Abdomen is nontender. Nondistended. External exam no gross blood at the tip of the meatus. Normal-appearing penile shaft and scrotum. He does have a moderate-sized left inguinal hernia that is chronic. Currently nontender. Moving all 4 extremities. Nontender no edema. He is awake and alert. Const Vital Signs: 04/26/24 10:06 04/26/24 12:06 04/26/24 14:00 Temperature 97.8 F Temperature Source Temporal Pulse Rate 87 66 81 Respiratory Rate 20 H 16 16 Blood Pressure 114/69 110/64 119/77 Blood Pressure Mean 84 79 91 Pulse Ox 98 97 98 Oxygen Delivery Method Room Air Room Air Positive well nourished and well developed; Negative for obese, cachectic, contractures or unkempt General Appearance ED: well developed and NAD; Negative for unkempt, cachectic, contractures or pallor Nutritional Appearance: Negative for cachectic or obese HEENT Reports moist mucous membranes normocephalic and atraumatic; Negative for trauma or tenderness Eyes PERRL and EOMs intact bilaterally Neck no lymphadenopathy, supple and no JVD General: Negative for tenderness or other Resp normal respiratory effort and clear to auscultation bilaterally Effort and Inspection: Negative for retractions or pain with movement Auscultation: Negative for rales, rhonchi or wheezes Cardio regular rate, regular rhythm, S1 normal heart sound, S2 normal heart sound and no murmurs Rate: Negative for bradycardia or tachycardic Rhythm: Negative for abnormal rhythm GI non-tender, non-distended and no masses Inspection: Negative for abdominal distention Palpation: soft; Negative for tender or guarding no CVA tenderness Bladder / Kidney Exam: No CVA tenderness Back/Spine no CVA tenderness Extremity normal to inspection General Extremety ED: Negative for edema or pulses abnormal General Extremity: Negative for edema or pulses abnormal Neuro oriented x3, CN's II-XII intact bilaterally and moves all extremities Sensorium / Orientation: alert, oriented to person, oriented to place and oriented to time; Negative for orientation impaired Motor Exam: strength 5/5 throughout Psych mental status grossly normal Appearance: Negative for unkempt Attitude: No agitated Mood & Affect: Negative for depressed, anxious or tearful Thought Process: normal thought process Skin General Skin Exam: Negative for jaundice or pallor Lesions: no lesions Rashes: no rashes Trauma: Negative for abrasion MDM MDM MDM Narrative Medical decision making narrative: 78-year-old male complaining of urethral pain status post TURP procedure. Labs and UA pending. Abdomen is benign. I will also speak to his urologist Dr. Hieu Turner. Repeat exam patient is doing well at 3:20 PM. He did receive IV pain medication. Dr. Turner. Reviewed his workup and his CAT scan. He is very concerned on capacity analyst the fast-growing nature of the patient's prostate cancer. Believes that the be the primary cause of his pain. Patient prefers not to be admitted to the hospital. His urologist will speak to the oncologist and get him in as soon as possible. This has been stressed to the patient. Both myself and the urologist talk to him about his diagnosis and need for close follow-up. History, physical, he will also be placed on Cipro twice daily for 10 days for his UTI. Given additional prescription for pain medication. History & Record Review Discussion w/independent historian: Patient Additional record(s) reviewed:: Prior inpatient record, Prior outpatient record, Prior ED visit and Prior labs Lab Data Attestation: I reviewed the patient's lab results. Lab results narrative: CBC shows a white count 9.8. H&H 9.0 and 28. Platelet count 293. Electrolytes show sodium 131. Gap 3. BUN 22 creatinine 1.35. Glucose 140. Urinalysis shows 10-25 red cells.. 100 white cells. 2+ bacteria. Positive nitrates. Will be treated for UTI. A culture be sent. Labs: Laboratory Results - last 24 hr 04/26/24 04/26/24 10:40 12:44 WBC 9.8 RBC 3.08 L Hgb 9.0 L Hct 28.2 L MCV 91.6 MCH 29.2 MCHC 31.9 L RDW Std Deviation 41.2 RDW Coeff of Jeff 12.4 Plt Count 293 MPV 11.5 Immature Gran % (Auto) 0.300 Neut % (Auto) 73.6 H Lymph % (Auto) 12.7 L [place] % (Auto) 8.1 Eos % (Auto) 5.1 H Baso % (Auto) 0.2 Absolute Neuts (auto) 7.2 Absolute Lymphs (auto) 1.25 Nucleated RBC % 0 Sodium 131 L Potassium 4.9 Chloride 102 Carbon Dioxide 26.0 Anion Gap 3 L BUN 22 H Creatinine 1.35 H Estim Creat Clear Calc 43.64 Est GFR (MDRD) Af Amer 65 Est GFR (MDRD) Non-Af 54 L BUN/Creatinine Ratio 16.3 Glucose 140 H Calcium 8.6 Urine Color Yellow Urine Clarity Turbid Urine pH 6.0 Ur Specific [place] 1.015 Urine Protein 500 H Urine Glucose (UA) Normal Urine Ketones Negative Urine Occult Blood 250 H Urine Nitrite Positive H Urine Bilirubin Negative Urine Urobilinogen Normal Ur Leukocyte Esterase 500 H Urine RBC 10-25 SEEN Urine WBC >100 SEEN Ur Squamous Epith Cells 0-5 SEEN Ur Renal Epithelial Cell 0-5 SEEN Urine Bacteria 2+ Urine Mucus 0 SEEN Radiography Diagnostic Testing: Clinical Impression(s) from Imaging Studies Abdomen/Pelvis CT 04/26/24 10:56 IMPRESSION: Status post TURP. 7.5 cm x 10.3 cm x 6.8 cm complex soft tissue density measuring slightly increase in the Hounsfield units suggestive of possible postoperative hematoma. Diffuse irregular bladder wall thickening. Moderate to large size left hernia containing fat. Bilateral mild hydronephrosis and hydroureter down to the urinary bladder. Electronically Signed: Mihai Mott MD at 12:14 EST , Discharge Plan Triage Chief Complaint: Abd Pain ED Provider: Mian Morales Dx/Rx/DC Orders Clinical Impression: Acute UTI, Prostate cancer, Abdominal pain Instructions: Urinary Tract Infections in Men Prescriptions: New ciprofloxacin HCl [Cipro] 500 mg tablet 500 mg PO BID 10 Days Qty: 20 0RF oxycodone 5 mg capsule 5 mg PO Q6H PRN (Reason: pain) 5 Days Qty: 20 0RF No Action atorvastatin 10 MG tablet 10 mg PO DAILY tamsulosin 0.4 MG capsule 0.8 mg PO DAILY Patient Comments: treat urinary retention fluticasone propionate 1 SPRAY spray,suspension 1 spray NASAL PRN PRN (Reason: Allergies) Patient Comments: treat seasonal allergies or asthma famotidine 20 mg tablet 20 mg PO DAILY PRN (Reason: heartburn) amlodipine 10 mg tablet 10 mg PO DAILY lisinopril 40 mg tablet 40 mg PO DAILY (DME) catheter 6 Fr combo pack See Rx Instructions .Route Qty: 100 0RF Rx Instructions: As directed Primary Care Provider: Belén Montoya Referrals: Peter Alaniz MD [Med Staff - Active Staff] - As soon as possible Belén Montoya PA [Primary Care Provider] - Activity Restrictions/Additional Instructions: Your urinary tract infection. Start antibiotics Cipro 1 pill twice a day till gone. The oxycodone for your prostate cancer pain. The concern is that your prostate cancer is growing rapidly. Call and follow-up with the cancer doctor Dr. Angelina Singh as soon as possible. Call his office tomorrow. Your urologist Dr. Hieu Turner is also going to speak with him to get you in soon as possible it is very important you follow-up with him as quickly as possible. They may have to either consider chemotherapy or radiation for your cancer but that will be their decision once they look at all your lab work and CAT scans. Print Language: Pashto Disposition Disposition: Home, Self Care
[2024-04-26] MEDS: oxyCODONE 5 MG Tablet PO ×2 (10:47→15:44)
--- NOTE | 2024-04-26 10:56 | CT_ITS ---
STUDY: CT ABDOMEN AND PELVIS WITH CONTRAST REASON FOR EXAM: Male, 78 years old. Lower abd pain hx of prostate ca. 3 weeks post TURP. History of left inguinal hernia. RADIATION DOSAGE (If Supplied By Facility): CTDIvol = ( 17.05 ) mGy, DLP = ( 1834.04 ) mGycm TECHNIQUE: Transaxial images were obtained from the dome of the diaphragm to the symphysis pubis without oral contrast. IV 100mL Isovue-370 was administered. Sagittal and coronal images were reconstructed. Individualized dose optimization techniques were used for this CT. COMPARISON: Comparison is made with prior study dated March 21, 2024. FINDINGS: Stable increased linear markings at the right lung base suggestive of linear atelectasis and/or scarring. Coronary artery calcification. Normal liver. Normal gallbladder and extrahepatic biliary system. There are multiple benign calcified granulomata of the spleen. Normal pancreas. Normal bilateral adrenal glands. Mild bilateral hydronephrosis and hydroureter down to the ureterovesical junction bilaterally. There is a small hiatal hernia. Normal small intestine. Fluid-filled cecum. The appendix is visualized and appears normal. There is diffuse atherosclerotic calcification of the abdominal aorta and its major visceral branches, without a demonstrated aneurysm. Normal inferior vena cava. Normal retroperitoneum. Diffuse irregular bowel wall thickening. There is a 7.5 cm x 10.3 cm x 6.8 cm complex soft tissue density with slight increase in the Hounsfield units. This may represent a postoperative hematoma in the cul-de-sac. Metallic radiation seeds are seen within the prostate. There is a small umbilical hernia containing fat. There is a moderate sized left inguinal hernia containing fat. There are diffuse degenerative changes of the visualized lumbar spine. CT/Abdomen/Pelvis W IV Cont ONLY IMPRESSION: Status post TURP. 7.5 cm x 10.3 cm x 6.8 cm complex soft tissue density measuring slightly increase in the Hounsfield units suggestive of possible postoperative hematoma. Diffuse irregular bladder wall thickening. Moderate to large size left hernia containing fat. Bilateral mild hydronephrosis and hydroureter down to the urinary bladder. Electronically Signed: Mihai Mott MD at 12:14 EST ,
[2024-04-26 10:58] LABS: Absolute Lymphocyte Count 1.25 X10^3/uL (0.83-4.51); Absolute Neutrophil Count 7.2 X10^3/uL (2.0-7.7); Basophil# 0.02 X10^3/uL; Basophil% 0.2 % (0-1); Eosinophils% 5.1 % (0-5); Hematocrit 28.2 % (40-54); Lymphocyte # 1.25 X10^3/ul (0.83-4.51); Lymphocyte % 12.7 % (19-41); Mean Corp Hgb Conc 31.9 g/dL (32-36); Mean Corpuscular Hgb 29.2 pg (27.0-32.0); Mean Corpuscular Volume 91.6 fL (80-94); Mean Platelet Vol. 11.5 fl (6.2-12.0); Monocyte% 8.1 % (0-10); NRBC Flagged by Analyzer 0 % (0-5); Neutrophil # 7.22 X10^3/uL (2.7-7.7); Neutrophil % 73.6 % (47-70); Platelet Count 293 K/mm3 (150-450); RBC Distribution Width CV 12.4 % (11.6-14.6); RBC Distribution Width SD 41.2 fl (35.1-43.9); Red Blood Count 3.08 M/mm3 (4.6-6.2); White Blood Count 9.8 K/mm3 (4.4-11.0)
[2024-04-26 11:13] LABS: Anion Gap 3 (5-15); BUN 22 mg/dL (7-18); BUN/Creat Ratio 16.3 RATIO (10-20); Calcium,Total 8.6 mg/dL (8.5-10.1); Chloride 102 mmol/L (98-107); Creatinine, Serum 1.35 mg/dL (0.70-1.30); EST Glomerular Filtration Rate 54 mL/min (>60); Est Glom Filt Rate - Afr Amer 65 mL/min (>60); Estimated Creatinine Clearance 43.64 ml/min; Glucose 140 mg/dL (74-106); Potassium 4.9 mmol/L (3.5-5.1); Sodium Level 131 mmol/L (136-145)
[2024-04-26] MEDS: Ondansetron 4 MG/2 ML Vial IV (12:04)
[2024-04-26] MEDS: Morphine 4 MG/ML Syringe IV (12:04)
[2024-04-26 12:06] VITALS: BP 110/64; PULSE 66; RESP 16; O2SAT 97
[2024-04-26 12:49] LABS: Mucous, Urine 0 SEEN /hpf (<or=2+)
[2024-04-26 12:52] LABS: Color, Urine Yellow (Yellow); Glucose, Dipstick Normal (Normal); Ketone-Dipstick Negative (Negative); Leukocyte Esterase-Dipstick 500 /ul (Negative); Nitrite-Dipstick Positive (Negative); Occult Blood-Urine 250 /ul (Negative); Protein-Dipstick 500 mg/dl (Negative); Specific Gravity, Urine 1.015 (1.002-1.030); Urine Bilirubin Dipstick Negative (Negative); Urine Clarity Turbid (Clear); Urine Urobilinogen Normal (Normal)
[2024-04-26 13:00] LABS: White Blood Cells >100 SEEN /hpf (0-5)
[2024-04-26 13:01] LABS: Red Blood Cells-Urine 10-25 SEEN /hpf (0-5); Squamous Epithelial Cells - UA 0-5 SEEN /hpf (0-5)
[2024-04-26 13:02] LABS: Bacteria 2+ /hpf (None Seen); Renal Epithelial Cells 0-5 SEEN /hpf (0-5)
[2024-04-26 14:00] VITALS: BP 119/77; PULSE 81; RESP 16; O2SAT 98
[2024-04-26] MEDS: Ciprofloxacin 500 MG Tablet PO (15:44)
== END 2024-04-26 15:48 | disposition home or self-care (01) ==
PROVIDERS: Emergency Provider Emergency Medicine; PCP Physician Assistant Medical; Visit Provider Emergency Medicine
DX: N39.0 Urinary tract infection, site not specified (principal); C61 Malignant neoplasm of prostate; E78.00 Pure hypercholesterolemia, unspecified; R10.9 Unspecified abdominal pain; I10 Essential (primary) hypertension; Z79.899 Other long term (current) drug therapy; F17.210 Nicotine dependence, cigarettes, uncomplicated
CPT/HCPCS: 74177; 80048; 81001; 85025; 87077; 87086; 87088; 87186; 96365; 96375; 99284; P9612; Q9967; A4216; J2405

== ENCOUNTER 2024-06-03 10:27 | Emergency (ER) | payer MEDICARE, SELFPAY ==
[2024-06-03 10:28] VITALS: BP 137/45; PULSE 109; RESP 16; TEMP 36.5; O2SAT 95; BMI 23.6
--- NOTE | 2024-06-03 10:39 | ED.RN ---
PT IS [place], PRESENT TO THE ED WITH FAMILY WITH C/O A DX OF PROSTATE CA IN THE LAST TWO MONTHS. PT HAS HAD RADIATION TX. CONCERNED THAT HE HAS HAD BALANCE ISSUES AND SUPPRESSED APPETITE. PT IS IN PAIN 9/10 IN THE LOWER ABD. DENIES HAVING A NORMAL BM FOR 3 MONTHS. PT SELF CATHS 3X DAYS. PT GETS AROUND WITHOUT AN ASSISTIVE DEVICE BUT CANNOT USE THE STAIRS INSIDE HOME SO HE STAYS ON THE MAIN FLOOR LEVEL.
[2024-06-03] MEDS: 0.9% Normal Saline (1000mL) 1,000 ML 1000 ML IV (11:29)
[2024-06-03] MEDS: Ondansetron 4 MG/2 ML Vial IV ×2 (11:29→17:44)
[2024-06-03] MEDS: Morphine 4 MG/ML Syringe IV ×2 (11:30→17:44)
--- NOTE | 2024-06-03 11:33 | EX.ED.DYSGE1 ---
HPI History of Present Illness Chief Complaint: Other, Pain/Inj Informant: patient and family Narrative Narrative: 78-year-old male presenting to the emergency room with the chief complaint of pelvic pain and failure to thrive. Patient has a history of prostate cancer treated initially with radiation. He had recurrence at the end of last year and underwent TURP and additional radiation treatments. The has been chronic pain in the pelvis since sure. He has been taking oxycodone. Family states that he was supposed to follow-up with oncology for chemotherapy treatments but was rescheduled. Family notes a progressive decline. Patient states he is lost about 12 pounds. He states that today he was too weak to shave. He states he has gotten to the point where he cannot care for himself at home and family concurs with that. He self caths. [facility] Medical History Cancer Wears hearing aid Wears contact lenses Wears dentures Alcohol use Bladder disease Prostate disease High cholesterol Injury of back Gastric reflux Chronic cough Smoker History of stress test Hypertension Home Medications ?Medication ?Instructions ?Recorded ?Last Taken ?Type amlodipine 10 mg tablet 10 mg PO DAILY BP 03/21/24 06/03/24 History catheter 6 Fr combo pack #100 ea 03/21/24 Unknown Rx famotidine 20 mg tablet 20 mg PO DAILY PRN heartburn 03/21/24 Unknown History lisinopril 40 mg tablet 40 mg PO DAILY BP 03/21/24 06/03/24 History oxycodone 5 mg tablet 5 mg PO Q4H PRN pain 06/03/24 06/03/24 History Allergy/AdvReac Type Severity Reaction Status Date / Time No Known Allergies Allergy Verified 06/03/24 10:30 Surgical History History of colonoscopy History of spinal surgery Social History Smoking Status: Former smoker alcohol intake: never substance use type: does not use ROS ROS ED ROS Narrative Generalized weakness Constitutional Constitutional ED: Reports weight loss; Denies chills Eyes Eyes: Denies change in vision or diplopia ENT ENT ED: Denies ear pain, rhinorrhea or sore throat Cardiovascular Cardiovascular: Denies chest pain, orthopnea, palpitations or racing heartbeat Respiratory/Chest Respiratory/Chest: Denies cough, dyspnea or orthopnea Gastrointestinal Gastrointestinal: Denies abdominal pain, diarrhea, nausea or vomiting Genitourinary Genitourinary ED: Reports hematuria and other Details: See history of present illness pelvic pain ; Denies dysuria or urinary frequency Musculoskeletal Musculoskeletal: Denies arthralgias or myalgias Integumentary Denies abscess or rash Neurologic Neurologic: Denies headache(s) or weakness Psychiatric Psychiatric: Denies anxiety, depression, suicidal ideation or suicidal thoughts Endocrine Endocrinology: Denies polydipsia, polyphagia or polyuria Allergic/Immunologic Allergic/Immunologic ED: Denies mouth swelling, tongue swelling or urticaria EXAM Physical Exam Narrative Exam Narrative: Patient appears uncomfortable in the bed Const Vital Signs: 06/03/24 10:28 06/03/24 10:35 06/03/24 12:27 Temperature 97.7 F L Temperature Source Oral Pulse Rate 109 H 79 Respiratory Rate 16 16 Respiratory Effort Normal Respiratory Pattern Normal Blood Pressure 137/45 H 108/52 L Blood Pressure Mean 75 70 Pulse Ox 95 99 Oxygen Delivery Method Room Air 06/03/24 15:05 Temperature Temperature Source Pulse Rate 86 Respiratory Rate Respiratory Effort Respiratory Pattern Blood Pressure 101/50 L Blood Pressure Mean 67 Pulse Ox Oxygen Delivery Method Positive well nourished and well developed General Appearance ED: well developed and NAD HEENT Reports normocephalic, head/scalp atraumatic and moist mucous membranes Eyes PERRL and EOMs intact bilaterally Neck no lymphadenopathy, supple and no JVD Resp normal respiratory effort and clear to auscultation bilaterally Cardio regular rate, regular rhythm and no murmurs GI normal to inspection, nondistended, normoactive bowel sounds and non-tender Palpation: soft Narrative: Uncircumcised male. He has some urinary incontinence. I do not see significant erythema or evidence of abscess. Testicular exam appears without significant abnormal findings. Back/Spine no CVA tenderness and normal ROM Extremity normal to inspection General Extremety ED: Negative for edema General Extremity: Negative for edema Neuro oriented x3 and CN's II-XII intact bilaterally Sensorium / Orientation: alert Motor Exam: strength 5/5 throughout Psych mental status grossly normal Mood & Affect: Negative for depressed or tearful Skin no rashes or lesions noted and no wounds MDM MDM MDM Narrative Medical decision making narrative: Differential diagnosis includes anemia malignancy dehydration malnourishment electrolyte abnormalities acute kidney injury bowel obstruction White count is 14.9 with a hemoglobin of 6.7 platelet count is 358 creatinine now 3.02 BUN of 87 CO2 of 19 potassium 5.8 sodium 131 glucose 153 albumin 2.5 he was typed and screened CT then pelvis shows progressive hydronephrosis hydroureter. There is a significantly large mass in the pelvis. Perinephric stranding Gavino please see radiologist full read I spoke with the patient's urologist Dr. Turner who notes that he is not able to stent this that he would need nephrostomy tubes. It became apparent after speaking with the patient's family that they are not aware of how advanced the cancer is in the poor outcome associated with it. We spent a long time talking about outcomes and his wishes. The patient and his family are more interested in comfort at this point and being transferred for nephrostomy tubes and rehab/retirement placement. They would like to speak with hospice about enrolling him for comfort and to see if there is a way that he can be at home which is where he would prefer. I spoke with social work I spoke with our admitting doctor today in case were not able to get him home and we are working towards the goal of hospice enrollment with hospice care. History & Record Review Discussion w/independent historian: Patient Lab Data Attestation: I reviewed the patient's lab results. Labs: Laboratory Results - last 24 hr 06/03/24 06/03/24 11:32 11:56 WBC 14.9 H RBC 2.56 L Hgb 6.7 L Hct 21.9 L MCV 85.5 MCH 26.2 L MCHC 30.6 L RDW Std Deviation 46.2 H RDW Coeff of Jeff 14.7 H Plt Count 358 MPV 10.4 Immature Gran % (Auto) 0.900 Neut % (Auto) 89.5 H Lymph % (Auto) 1.8 L Tompkins % (Auto) 6.2 Eos % (Auto) 1.3 Baso % (Auto) 0.3 Absolute Neuts (auto) 13.3 H Absolute Lymphs (auto) 0.27 L Nucleated RBC % 0 Sodium 131 L Potassium 5.8 H Chloride 102 Carbon Dioxide 19.0 L Anion Gap 10 BUN 87 H Creatinine 3.02 H Estim Creat Clear Calc 19.51 Est GFR (MDRD) Af Amer 26 L Est GFR (MDRD) Non-Af 21 L BUN/Creatinine Ratio 28.8 H Glucose 153 H Calcium 8.6 Total Bilirubin 0.40 Direct Bilirubin 0.14 AST 11 L ALT 14 L Alkaline Phosphatase 70 Total Protein 6.6 Albumin 2.5 L Globulin 4.1 Lipase 20 Blood Type A POSITIVE Antibody Screen NEGATIVE Radiography Diagnostic Testing: Clinical Impression(s) from Imaging Studies Abdomen/Pelvis CT 06/03/24 12:18 IMPRESSION: Progressive bilateral hydronephrosis and hydroureter. Mass in the pelvis with diffuse bladder wall thickening. Nonspecific bilateral perinephric stranding. Left inguinal hernia. New small right pleural effusion with right basilar atelectasis. Electronically Signed: Mihai Mott MD at 13:25 EST , Discharge Plan Dx/Rx/DC Orders Clinical Impression: Acute blood loss anemia, Hematuria, Sarcoma of prostate, DUNCAN (acute kidney injury), Dehydration Disposition Disposition: Acute Care Hospital [facility]
[2024-06-03 11:41] LABS: Absolute Lymphocyte Count 0.27 X10^3/uL (0.83-4.51); Absolute Neutrophil Count 13.3 X10^3/uL (2.0-7.7); Basophil# 0.05 X10^3/uL; Basophil% 0.3 % (0-1); Eosinophil# 0.19 X10^3/uL; Eosinophils% 1.3 % (0-5); Hematocrit 21.9 % (40-54); Hemoglobin 6.7 g/dL (13.0-16.5); Lymphocyte # 0.27 X10^3/ul (0.83-4.51); Lymphocyte % 1.8 % (19-41); Mean Corp Hgb Conc 30.6 g/dL (32-36); Mean Corpuscular Hgb 26.2 pg (27.0-32.0); Mean Corpuscular Volume 85.5 fL (80-94); Mean Platelet Vol. 10.4 fl (6.2-12.0); Monocyte# 0.93 X10^3/uL; Monocyte% 6.2 % (0-10); NRBC Flagged by Analyzer 0 % (0-5); Neutrophil # 13.32 X10^3/uL (2.7-7.7); Neutrophil % 89.5 % (47-70); POSITIVE DIFFERENTIAL YES; Platelet Count 358 K/mm3 (150-450); RBC Distribution Width CV 14.7 % (11.6-14.6); RBC Distribution Width SD 46.2 fl (35.1-43.9); Red Blood Count 2.56 M/mm3 (4.6-6.2); White Blood Count 14.9 K/mm3 (4.4-11.0)
[2024-06-03 12:02] LABS: AST(SGOT) 11 U/L (15-37); Alanine Aminotransfer ALT/SGPT 14 U/L (16-61); Albumin, Serum 2.5 g/dL (3.2-5.0); Alkaline Phosphatase 70 U/L (45-117); Anion Gap 10 (5-15); BUN 87 mg/dL (7-18); BUN/Creat Ratio 28.8 RATIO (10-20); Bilirubin, Direct 0.14 mg/dL (0.00-0.30); Calcium,Total 8.6 mg/dL (8.5-10.1); Chloride 102 mmol/L (98-107); Creatinine, Serum 3.02 mg/dL (0.70-1.30); EST Glomerular Filtration Rate 21 mL/min (>60); Est Glom Filt Rate - Afr Amer 26 mL/min (>60); Estimated Creatinine Clearance 19.51 ml/min; Globulin 4.1 g/dL (2.2-4.2); Glucose 153 mg/dL (74-106); Lipase 20 U/L (13-75); Potassium 5.8 mmol/L (3.5-5.1); Protein, Total 6.6 g/dL (6.4-8.2); Sodium Level 131 mmol/L (136-145)
--- NOTE | 2024-06-03 12:18 | CT_ITS ---
STUDY: CT ABDOMEN AND PELVIS WITHOUT CONTRAST REASON FOR EXAM: Male, 78 years old. Pelvic pain. Recent diagnosis of prostate cancer. RADIATION DOSAGE (If Supplied By Facility): CTDIvol = ( 8.07 ) mGy, DLP = ( 423.26 ) mGycm TECHNIQUE: Transaxial images were obtained from the dome of the diaphragm to the symphysis pubis without oral contrast, and without intravenous contrast. Sagittal and coronal images were reconstructed. Individualized dose optimization techniques were used for this CT. COMPARISON: Comparison is made with prior study dated April 26, 2024. FINDINGS: Tiny bilateral pleural effusions slightly worse on the right side. Right basilar atelectasis and/or infiltrate. Mild degree of a right pleural plaque calcification. Coronary artery calcification. Normal liver. Normal gallbladder and extrahepatic biliary system. There are multiple benign calcified granulomata of the spleen. Normal pancreas. Normal bilateral adrenal glands. Moderate degree of bilateral hydronephrosis and hydroureter down to the level of the urinary bladder. Nonspecific bilateral perinephric stranding. Normal visualized stomach. Normal small intestine. Normal colon. The appendix is visualized and appears normal. There is diffuse atherosclerotic calcification of the abdominal aorta, without a demonstrated aneurysm. Normal inferior vena cava. There is borderline retroperitoneal lymphadenopathy with enlarged nodes no greater than 10mm in the short axis diameter. Diffuse irregular bladder wall thickening. Stable 7.5 cm x 6.9 cm x 10.3 cm complex soft tissue mass within the pelvis extending into the region of the bladder. There is evidence of a prostatic metallic seeds. Moderate size left inguinal hernia containing fat. This is unchanged. There are diffuse degenerative changes of the visualized lumbar spine. CT/Abdomen/Pelvis without Cont IMPRESSION: Progressive bilateral hydronephrosis and hydroureter. Mass in the pelvis with diffuse bladder wall thickening. Nonspecific bilateral perinephric stranding. Left inguinal hernia. New small right pleural effusion with right basilar atelectasis. Electronically Signed: Mihai Mott MD at 13:25 EST ,
[2024-06-03 12:27] VITALS: BP 108/52; PULSE 79; RESP 16; O2SAT 99
[2024-06-03] MEDS: 0.9% Normal Saline (1000mL) 1,000 ML 150 ML IV ×2 (12:54→17:45)
[2024-06-03] MEDS: Morphine 2 MG/ML Syringe IV (12:55)
--- NOTE | 2024-06-03 14:42 | CM.ED ---
Social Work Physician notified SW that patient and patients have decided on a Hospice consult. Hospice nurse spoke with SW and requested paperwork be faxed over, same done. SW notified Hospice that patient is to be evaluated in ED for potential admission to their inpatient unit. Social Work met with to explain process. tearful but thankful for the assistance. Supportive listening and emotional support given. No further needs or questions at this time. Adilia Frias, ANALYTICS INTERN, PIECE CUTTER
[2024-06-03 15:05] VITALS: BP 101/50; PULSE 86
[2024-06-03 17:30] VITALS: BP 109/40; PULSE 80; RESP 18; O2SAT 97
[2024-06-03] MEDS: Ketorolac 15 MG/ML Vial IV (17:44)
--- NOTE | 2024-06-03 17:45 | CM.ED ---
Social Work Larisa, Hospice nurse called and let SW know that patient was accepted to Inpatient unit. Hospice setting up transport, will let SW know time when able. Adilia Frias, CHOPPER FEEDER, TELERADIOLOGIST
--- NOTE | 2024-06-03 18:36 | ED.RN ---
Report given to Francia at [facility] [phone]
[2024-06-03 18:42] VITALS: BP 108/38; PULSE 80; RESP 14; O2SAT 95
[2024-06-03 18:43] VITALS: BP 108/38; PULSE 80; RESP 14; TEMP 36.5; O2SAT 95
== END 2024-06-03 19:09 | disposition hospice, home (50) ==
PROVIDERS: Emergency Provider Emergency Medicine; PCP Physician Assistant Medical; Visit Provider Emergency Medicine
DX: R10.2 Pelvic and perineal pain (principal); C80.1 Malignant (primary) neoplasm, unspecified; N17.9 Acute kidney failure, unspecified; R31.9 Hematuria, unspecified; Z87.891 Personal history of nicotine dependence; D62 Acute posthemorrhagic anemia; E78.00 Pure hypercholesterolemia, unspecified; E86.0 Dehydration; I10 Essential (primary) hypertension; Z79.899 Other long term (current) drug therapy; K21.9 Gastro-esophageal reflux disease without esophagitis; G89.29 Other chronic pain
CPT/HCPCS: 74176; 80048; 80076; 83690; 85025; 86850; 86900; 86901; 96361; 96374; 96375; 96376; 99285; A4216; J2405